=== PATIENT | female | born 2000 | race Caucasian/White ===

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

== ENCOUNTER 2020-06-17 19:16 | Emergency (ER) | payer MEDICAID, SELFPAY ==
[2020-06-17 19:17] VITALS: BP 123/75; PULSE 86; RESP 15; TEMP 36.2; O2SAT 97; BMI 21.9
[2020-06-17 19:19] VITALS: BP 123/75; PULSE 89; RESP 15; TEMP 36.2; O2SAT 97
[2020-06-17 19:46] LABS: Bacteria 0 SEEN /hpf (None Seen); Mucous, Urine 0 SEEN /hpf (<or=2+); Red Blood Cells-Urine 0 SEEN /hpf (0-5)
[2020-06-17 19:56] LABS: Color, Urine Yellow (Yellow); Glucose, Dipstick Normal (Normal); Ketone-Dipstick Negative (Negative); Leukocyte Esterase-Dipstick Negative /ul (Negative); Nitrite-Dipstick Negative (Negative); Occult Blood-Urine Negative /ul (Negative); Protein-Dipstick Negative (Negative); Specific Gravity, Urine 1.015 (1.002-1.030); Urine Bilirubin Dipstick Negative (Negative); Urine Clarity Clear (Clear); Urine Urobilinogen 1 mg/dl (Normal); Urine pH 6.5 (5.0 - 8.0)
[2020-06-17 20:02] LABS: Internal QC Validated? YES +Cl - CLEAR BKGD; Pregnancy, Urine Negative Negative
[2020-06-17 20:25] LABS: Squamous Epithelial Cells - UA 0-5 SEEN /hpf (5-10); White Blood Cells 0 SEEN /hpf (0-5)
[2020-06-17 21:00] VITALS: BP 118/77; PULSE 79; RESP 14; TEMP 36.2; O2SAT 99
--- NOTE | 2020-06-17 21:12 | CT_ITS ---
STUDY: CT ABDOMEN AND PELVIS WITH CONTRAST REASON FOR EXAM: Female, 19 years old. RLQ PAIN X 3 DAYS WITH NAUSEA RADIATION DOSAGE (If Supplied By Facility): CTDIvol = ( 10.69 ) mGy, DLP = ( 375.43 ) mGycm TECHNIQUE: Transaxial images were obtained from the dome of the diaphragm to the symphysis pubis without oral contrast. Oral and amp; IV breeza neutral and amp; 100mL Isovue-370 was administered. Sagittal and coronal images were reconstructed. Individualized dose optimization techniques were used for this CT. COMPARISON: None. FINDINGS: Lung bases are clear. Heart size is normal. The liver is unremarkable. The gallbladder is unremarkable. The spleen and pancreas are unremarkable. The adrenal glands are normal. The kidneys are unremarkable. No stones or hydronephrosis. The aorta is normal in caliber. There is no free fluid, free air or organized collection. No bowel obstruction or inflammatory change. Normal appendix. Urinary bladder is unremarkable. Normal abdominal wall. 2.1 x 0.7 x 3.8 cm lucent lesion in the left iliac wing with endosteal scalloping. No additional bone lesions. CT/Abdomen/Pelvis WITH Contrast IMPRESSION: 1. No acute findings. 2. 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 Electronically Signed: Kaye Mir MD at 23:45 EDT Tel , Service support ,
--- NOTE | 2020-06-17 21:15 | ED.VIS.GEN ---
History of Present Illness Chief Complaint: Abd Pain Informant: Patient Onset: Days - 3 days Context: Gradual Onset Timing: Waxes and wanes Current Severity: Moderate Maximum Severity: Moderate Narrative: Patient presents with right lower quadrant pain for the past 3 days. She does have nausea but has not noted vomiting or diarrhea. She denies urinary symptoms. Last menstrual cycle was 2 and half weeks ago. She denies history of ovarian cyst or current vaginal discharge. No prior abdominal surgeries. Past Medical History - Allergies and Home Meds Allergies/Adverse Reactions: Allergies lidocaine Allergy (Verified 06/17/20 19:19) Rash Primary Care Physician: Marco A Valdivia DO [Primary Care Provider] - Past Medical History: None Smoking Status: Current every day smoker Review of Systems General: Denies: Chills, Fever Eyes: Denies: Visual changes - bilaterally ENT: Denies: Bilateral ear pain Cardiovascular: Denies: Chest pain Respiratory: Denies: Dyspnea, Cough Gastrointestinal: Reports: Abdominal pain. Denies: Nausea, Vomiting Genitourinary: Denies: Dysuria Musculoskeletal: Denies: Swelling, Extremity Pain Skin: Denies: Rash Neurological: Denies: Headache Hematologic: Denies: Easy bruising, Easy bleeding Allergy: Denies: Uticaria Physical Exam Vital Signs/Narrative: Vital Signs Temp Pulse Resp BP Pulse Ox 06/17/20 21:00 97.1 F L 79 14 118/77 99 06/17/20 19:19 97.2 F L 89 15 123/75 H 97 06/17/20 19:17 97.2 F L 86 15 123/75 H 97 Inital Vital Signs reviewed: Yes General: Well nourished, Well developed Head: Normocephalic ENT: Moist mucous membranes Neck: Supple Cardiovascular: Regular rate, Regular rhythm Respiratory: No distress, CTA bilaterally Abdomen: Soft, Tender - Right lower quadrant tenderness to palpation., Hypoactive bowel sounds. Negative for: Guarding, Rebound tenderness Extremities: Nontender Skin: Normal color Neurological: Alert, Oriented x3 Psychological: Normal affect Diagnostic/Tx/Re-eval Impressions Abdomen/Pelvis CT 06/17/20 21:12 IMPRESSION: 1. No acute findings. 2. 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 Electronically Signed: Kaye Mir MD at 23:45 EDT Tel , Service support , 06/17/20 21:12 Abdomen/Pelvis WITH Contrast [CT] Stat Laboratory Results 06/17/20 06/17/20 06/17/20 19:33 21:45 21:45 WBC 7.9 RBC 5.04 Hgb 14.0 Hct 42.0 MCV 83.3 MCH 27.8 MCHC 33.3 RDW Std Deviation 38.9 RDW Coeff of Dinesh 12.9 Plt Count 277 MPV 10.4 Immature Gran % (Auto) 0.100 Neut % (Auto) 49.0 Lymph % (Auto) 37.3 [place] % (Auto) 6.2 Eos % (Auto) 6.6 H Baso % (Auto) 0.8 Absolute Neuts (auto) 3.8 Absolute Lymphs (auto) 2.93 Nucleated RBC % 0 Sodium 140 Potassium 4.3 Chloride 108 H Carbon Dioxide 25.0 Anion Gap 7 BUN 9 Creatinine 0.69 Estim Creat Clear Calc 103.72 Est GFR (MDRD) Af Amer 140 Est GFR (MDRD) Non-Af 115 BUN/Creatinine Ratio 13.0 Glucose 82 Calcium 9.3 Total Bilirubin 0.40 Direct Bilirubin 0.12 AST 19 ALT 22 Alkaline Phosphatase 71 Total Protein 8.0 Albumin 3.8 Globulin 4.2 Urine Color Yellow Urine Clarity Clear Urine pH 6.5 Ur Specific [place] 1.015 Urine Protein Negative Urine Glucose (UA) Normal Urine Ketones Negative Urine Occult Blood Negative Urine Nitrite Negative Urine Bilirubin Negative Urine Urobilinogen 1 H Ur Leukocyte Esterase Negative Urine RBC 0 SEEN Urine WBC 0 SEEN Ur Squamous Epith Cells 0-5 SEEN Urine Bacteria 0 SEEN Urine Mucus 0 SEEN Urine Test Negative - Medical Decision Making Patient is given a small dose of morphine along with Zofran for pain. Test results are discussed with patient and significant other at bedside. No acute abnormalities noted on her imaging or labs to explain her current symptoms. She will be given couple days of pain medication and advised to follow bland diet. She is given return instructions. ED Disposition - Plan for ED Patient: Disposition: Home or Assisted Living Diagnosis: Abdominal pain Instructions: ED Abdominal Pain Unkn Cause Fem Prescriptions: Hydrocodone Bitart/Apap 5-325 [Lambert 5MG-325MG] 1 tablet PO Q6H PRN PRN 3 Days #10 tablet PRN Reason: Pain Referrals: Marco A Valdivia, [Primary Care Provider] - 1 Week if not improving
[2020-06-17] MEDS: Ondansetron 4 MG/2 ML Vial IV (21:41)
[2020-06-17] MEDS: 0.9% Normal Saline 1,000 ML 100 ML IV (21:41)
[2020-06-17] MEDS: Morphine 2 MG/ML Syringe IV (21:41)
[2020-06-17 21:43] VITALS: BP 120/73; PULSE 74; RESP 15; O2SAT 100
[2020-06-17 22:03] LABS: Absolute Lymphocyte Count 2.93 X10^3/uL (0.83-4.51); Absolute Neutrophil Count 3.8 X10^3/uL (2.0-7.7); Basophil# 0.06 X10^3/uL; Basophil% 0.8 % (0-1); Eosinophil# 0.52 X10^3/uL; Eosinophils% 6.6 % (0-5); Lymphocyte # 2.93 X10^3/ul (4.0); Lymphocyte % 37.3 % (19-41); Mean Corp Hgb Conc 33.3 g/dL (32-36); Mean Corpuscular Hgb 27.8 pg (27.0-32.0); Mean Corpuscular Volume 83.3 fL (81-99); Mean Platelet Vol. 10.4 fl (6.2-12.0); Monocyte# 0.49 X10^3/uL; Monocyte% 6.2 % (0-10); NRBC Flagged by Analyzer 0 % (0-5); Neutrophil # 3.84 X10^3/uL (2.7-7.7); Platelet Count 277 K/mm3 (150-450); RBC Distribution Width CV 12.9 % (11.6-14.6); RBC Distribution Width SD 38.9 fl (35.1-43.9); Red Blood Count 5.04 M/mm3 (4.2-5.4); White Blood Count 7.9 K/mm3 (4.4-11.0)
[2020-06-17 22:21] LABS: AST(SGOT) 19 U/L (15-37); Alanine Aminotransfer ALT/SGPT 22 U/L (13-56); Albumin, Serum 3.8 g/dL (3.2-5.0); Alkaline Phosphatase 71 U/L (45-117); Anion Gap 7 (5-15); BUN 9 mg/dL (7-18); Bilirubin, Direct 0.12 mg/dL (0.00-0.30); Calcium,Total 9.3 mg/dL (8.5-10.1); Chloride 108 mmol/L (98-107); Creatinine, Serum 0.69 mg/dL (0.55-1.02); EST Glomerular Filtration Rate 115 mL/min (>60); Est Glom Filt Rate - Afr Amer 140 mL/min (>60); Estimated Creatinine Clearance 103.72 ml/min; Globulin 4.2 g/dL (2.2-4.2); Glucose 82 mg/dL (74-106); Potassium 4.3 mmol/L (3.5-5.1); Sodium Level 140 mmol/L (136-145)
[2020-06-18 00:36] VITALS: BP 132/80; PULSE 15; RESP 71; O2SAT 98
== END 2020-06-18 00:37 | disposition home or self-care (01) ==
PROVIDERS: Emergency Provider Emergency Medicine; PCP Family Medicine
DX: R10.31 Right lower quadrant pain (principal); R11.0 Nausea; F17.200 Nicotine dependence, unspecified, uncomplicated
CPT/HCPCS: 74177; 80048; 80076; 81001; 81025; 85025; 96361; 96374; 96375; 99283; J7030; Q9967; A4216; J2405

== ENCOUNTER 2022-04-12 19:41 | Emergency (ER) | payer OTHER, MEDICAID, SELFPAY ==
[2022-04-12 19:42] VITALS: BP 156/92; PULSE 104; RESP 16; TEMP 36.6; O2SAT 99; BMI 22.8
--- NOTE | 2022-04-12 20:37 | ED.RN ---
Pain medication request given to Dr Prado. Await order.
--- NOTE | 2022-04-12 20:45 | RAD_ITS ---
STUDY: X-RAY - LEFT TIBIA AND FIBULA REASON FOR EXAM: Female, 21 years old. Injury/Pain TECHNIQUE: 2 view(s) of the tibia and fibula were obtained. COMPARISON: None. FINDINGS: Normal visualized tibia. Normal visualized fibula. Soft tissue swelling and subcutaneous emphysema anteriorly consistent with a laceration. RAD/Tibia & Fibula 2 Views IMPRESSION: No acute fracture, dislocation, radiopaque foreign body. Electronically Signed: Keon Odell MD at 21:11 EDT ,
[2022-04-12] MEDS: DiphenhydrAMINE 50 MG/ML Syringe 150 MG IM (20:47)
--- NOTE | 2022-04-12 21:32 | ED.RN ---
patient calls out again requesting pain medication. Dr Prado notified. no new orders given.
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
[2022-04-12] MEDS: HYDROcodone Bitartrate/Apap 5/325 Tablet PO (21:54)
[2022-04-12 23:16] VITALS: RESP 17
[2022-04-12] MEDS: Cephalexin 500 MG Capsule PO (23:48)
== END 2022-04-12 23:55 | disposition home or self-care (01) ==
PROVIDERS: Emergency Provider Emergency Medicine; PCP Family Medicine; Visit Provider Emergency Medicine
DX: S81.811A Laceration without foreign body, right lower leg, initial encounter (principal); V86.99XA Unspecified occupant of other special all-terrain or other off-road motor vehicle injured in nontraffic accident, initial encounter; F17.210 Nicotine dependence, cigarettes, uncomplicated
CPT/HCPCS: 12002; 73590; 96372; 99285

== ENCOUNTER → 2023-09-21 | Outpatient (CLI) | payer OTHER, SELFPAY ==
--- NOTE | 2023-09-21 12:28 | US_ITS ---
STUDY: FIRST TRIMESTER OBSTETRICAL ULTRASOUND REASON FOR EXAM: Female, 22 years old dating LMP: August 06, 2023. TECHNIQUE: Transvaginal TECHNICAL QUALITY: Adequate. PRIOR ULTRASOUND: None. FINDINGS: There is visualization of a single gestational sac in a normal intrauterine position. The mean sac diameter (MSD) measures 2.2 sono, indicating an estimated gestational age (EGA) of 7 weeks, 1 days. The gestational sac shape is within normal limits. There is a visualized yolk sac. The yolk sac measures 2.2 mm. The placenta is non-visualized. There is visualization of a live embryo. The crown-rump length (CRL) measures 8 mm, indicating an estimated gestational age (EGA) of 6 weeks, 6 days. There is demonstrated cardiac activity with a heart rate of 114 bpm. The estimated gestation age (EGA) by LMP is 6 weeks, 4 days. The estimated date of delivery (JUAN JOSE) by LMP is May 12, 2024. The estimated gestation age (EGA) by US is 7 weeks, 0 days. The estimated date of delivery (JUAN JOSE) by US is May 09, 2024. The uterus measures 10.1 cm x 6 cm x 4.9 cm. There is no demonstrated uterine fibroid. The cervix is closed. The right ovary measures 3.7 cm x 2.6 cm x 2.9 cm. There is no right ovarian cyst. There is no visualized right adnexal mass or complex lesion. The left ovary measures 2.5 cm x 1.6 cm x 1.5 cm. There is no left ovarian cyst. There is no visualized left adnexal mass or complex lesion. There is no fluid in the cul de sac. US/Transvaginal w/Preg US IMPRESSION: Single intrauterine gestation with a mean gestational age of 7 weeks. Electronically Signed: Clarence Reyes MD at 16:07 EST ,
--- OUTSIDE RECORDS SUMMARY | 2023-09-21 12:53 | XMS RPT_ITS | CCD ---
Author Name Unknown Address [address] [place] [address] Organization [facility] Care Team Providers Care Trailer Park Manager Name Role Phone Shea Marco A Carrillo Primary Care Provider [phone] Self, Referral Referring Unavailable Mulugeta Garces Attending Unavailable Shea GUERRA Marco A Carrillo Primary Care Provider Shea GUERRA Marco A Carrillo Primary Care Provider Shea GUERRA Marco A Carrillo Primary Care Provider SHEA, MARCO A Primary Care Unavailable MONIKA CHONG Attending Unavailable MONIKA CHONG Referring Unavailable VALENTINOA, MARCO A Primary Care Unavailable SHEA, MARCO A Attending Unavailable SHEA, MARCO A Referring Unavailable VALENTINOA, MARCO A Primary Care Unavailable SHEA, MARCO A Attending Unavailable VALENTINOA, MARCO A Primary Care Unavailable ELIZABETH ALLEN Attending Unavailable VALENTINOA, MARCO A Primary Care Unavailable KEITH SOL Attending Unavailable SHEA, MARCO A Primary Care Unavailable SHEA, MARCO A Attending Unavailable VALENTINOA, MARCO A Primary Care Unavailable SHEA, MARCO A Attending Unavailable VALENTINOA, MARCO A Primary Care Unavailable ELIZABETH ALLEN Attending Unavailable VALENTINOA, MARCO A Primary Care Unavailable Allergies Allergy Classification Reported Allergen(s) Allergy Type Date of Onset Reaction(s) Facility Lidocaine (4 sources) Lidocaine Drug Allergy 01-21-2016 [facility] (20 sources) Lidocaine Drug Allergy 01-21-2016 [facility], [place] Medications Current Medications Medication Drug Class(es) Dates Sig (Normalized) Sig (Original) acetaminophen 500 mg oral tablet (20 sources) Start: 12-24-2021 acetaminophen (TYLENOL) tablet 1,000 mg Completed/Discontinued Medications Medication Drug Class(es) Dates Sig (Normalized) Sig (Original) [id number] 200 actuat albuterol 0.09 mg/actuat metered dose inhaler (2 sources) beta2-Adrenergic Agonist Start: 05-16-2020 End: 12-01-2022 take 2 puff(s) by inhalation every four hours as needed albuterol 108 (90 Base) MCG/ACT inhaler Inhale 2 puffs every 4 hours as needed. 0 05/16/2020 12/01/2022 Discontinued (Therapy completed) benzonatate 100 mg oral capsule (6 sources) Non-narcotic Antitussive Start: 10-26-2022 End: 12-01-2022 take 1 capsule by mouth every eight hours as needed for cough benzonatate (Tessalon) 100 MG capsule Indications: Sinobronchitis Take 1 capsule (100 mg) by mouth every 8 hours as needed for cough. 21 capsule 0 10/26/2022 12/01/2022 Discontinued (Therapy completed) Problems Active Problems Problem Classification Problem Date Documented Da te Episodic/Chronic Alcohol-related disorders (1 source) Alcohol intoxication; Translations: [Alcohol use, unspecified with intoxication, uncomplicated] Episodic Cardiac dysrhythmias (11 sources) Tachycardia; Translations: [Tachycardia, unspecified] Onset: 07-30-2023 Episodic E Codes: Fall (1 source) Fall; Translations: [Unspecified fall, initial encounter] Episodic Genitourinary symptoms and ill-defined conditions (3 sources) Polyuria; Translations: [Polyuria] Onset: 07-19-2023 07-19-2023 Episodic Other bone disease and musculoskeletal deformities (20 sources) Irene Schlatter disease; 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] Onset: 10-26-2019 04-09-2017 Chronic Other female genital disorders (1 source) Pain in female genitalia on intercourse; Translations: [Unspecified dyspareunia] 02-18-2023 Chronic Other female genital disorders (2 sources) Unspecified dyspareunia; Translations: [Unspecified dyspareunia] Onset: 02-18-2023 Chronic Other gastrointestinal disorders (1 source) Diarrhea; Translations: [Diarrhea, unspecified] Episodic Other injuries and conditions due to external causes (1 source) Injury of nose; Translations: [Unspecified injury of nose, initial encounter] Episodic Other injuries and conditions due to external causes (1 source) Injury of head; Translations: [Unspecified injury of head, initial encounter] Episodic Other nervous system disorders (13 sources) Postoperative pain ; Translations: [Other acute postprocedural pain] Onset: 02-29-2020 Resolved: 10-10-2020 02-29-2020 Episodic Other non-traumatic joint disorders (2 sources) Pain in right hip joint; Translations: [Right hip pain] Other upper respiratory infections (3 sources) Chronic sinusitis; Translations: [Chronic sinusitis, unspecified] Onset: 10-26-2022 04-21-2023 Chronic Other upper respiratory infections (1 source) Acute pharyngitis; Translations: [Acute pharyngitis, unspecified] Episodic Screening and history of mental health and substance abuse codes (1 source) H/O: depression; Translations: [Personal history of other mental and behavioral disorders] Episodic Unclassified (1 source) Drug therapy finding Past or Other Problems Problem Classification Problem Date Documented Date Episodic/Chronic Abdominal pain (4 sources) Right upper quadrant pain; Translations: [Right upper quadrant pain] Onset: 3 Episodic Chronic obstructive pulmonary disease and bronchiectasis (2 sources) Bronchitis, not specified as acute or chronic; Translations: [Bronchitis, not specified as acute or chronic] Onset: 3 Episodic Contraceptive and procreative management (20 sources) Oral contraception; Translations: [Encounter for surveillance of contraceptive pills] Onset: 0 05-24-2018 Episodic E Codes: Natural/environment (2 sources) Bitten by dog, initial encounter; Translations: [Bitten by dog, initial encounter] Onset: 3 Episodic Immunizations and screening for infectious disease (3 sources) Patient encounter status; Translations: [Encounter for screening for infections with a predominantly sexual mode of transmission] Onset: 3 02-18-2023 Episodic Intracranial injury (18 sources) Personal history of traumatic brain injury; Translations: [Concussion with no loss of consciousness] Onset: 7 Resolved: 0 04-09-2017 Episodic Mood disorders (20 sources) Depressive disorder; Translations: [Major depressive disorder] Onset: 7 Resolved: 1 03-29-2017 Chronic Other gastrointestinal disorders (1 source) Constipation Episodic Other gastrointestinal disorders (2 sources) Diarrhea, unspecified; Translations: [Diarrhea, unspecified] Onset: 3 Episodic Other injuries and conditions due to external causes (1 source) Closed injury of head; Translations: [Closed head injury, initial encounter] Episodic Other screening for suspected conditions (not mental disorders or infectious disease) (3 sources) Cancer cervix screening status; Translations: [Encounter for screening for malignant neoplasm of cervix] Onset: 3 02-18-2023 Episodic Retinal detachments; defects; vascular occlusion; and retinopathy (12 sources) Detachment of retina of right eye; Translations: [Serous retinal detachment, right eye] Onset: 3 04-21-2023 Episodic Spondylosis; intervertebral disc disorders; other back problems (1 source) Torticollis; Translations: [Torticollis] Episodic Sprains and strains (17 sources) Sprain, metatarsophalangeal joint; Translations: [Sprain of metacarpophalangeal joint of right little finger, initial encounter] Onset: 8 Resolved: 0 05-04-2018 Episodic Results Test Name Value Interpretation Reference Range Facil ity Vital Signs Date Time Vital Sign Value Performing Clinician Faci lity 07-19-2023 14:05-0500 Body height 157.5 cm Marco A Valdivia DO Work Phone: [facility] 07-19-2023 14:05-0500 Body mass index (BMI) [Ratio] 24.51 kg/m2 Marco A Valdivia Owl[facility]ing ??? Work Phone: [facility] 07-19-2023 14:05-0500 Body temperature 97.9 [degF] Marco A Valdivia DO Work Phone: [facility] 07-19-2023 14:05-0500 Body weight 60.78 kg Marco A Valdivia DO Work Phone: [facility] 07-19-2023 14:05-0500 Diastolic blood pressure 60 mm[Hg] Marco A Valdivia DO Work Phone: [facility] 07-19-2023 14:05-0500 Heart rate 75 /min Marco A Valdivia Owl[facility] ??? Work Phone: [facility] 07-19-2023 14:05-0500 SaO2% (BldA) [Mass fraction] 99 % Marco A Valdivia DO Work Phone: [facility] [employer] 07-19-2023 14:05-0500 Systolic blood pressure 110 mm[Hg] Marco A Valdivia DO Work Phone: [facility] 04-21-2023 15:27-0400 Body height 157.5 cm Marco A Valdivia DO Work Phone: [employer] [place] [facility] 04-21-2023 15:27-0400 Body mass index (BMI) [Ratio] 25.06 kg/m2 Marco A Valdivia DO Work Phone: [employer] [place] [facility] 04-21-2023 15:27-0400 Body temperature 98.01 [degF] Marco A Valdivia DO Work Phone: [employer] [place] [facility] 04-21-2023 15:27-0400 Body weight 62.14 kg Marco A Valdivia DO Work Phone: [facility] [facility] 04-21-2023 15:27-0400 Diastolic blood pressure 77 mm[Hg] Marco A Valdivia DO Work Phone: [facility] [place] [facility] 04-21-2023 15:27-0400 Heart rate 82 /min Marco A Valdivia DO Work Phone: [employer] [place] [facility] 04-21-2023 15:27-0400 SaO2% (BldA) [Mass fraction] 99 % Marco A Valdivia DO Work Phone: [employer] [place] [facility] 04-21-2023 15:27-0400 Systolic blood pressure 117 mm[Hg] Marco A Valdivia DO Work Phone: [facility] [place] [facility] 02-18-2023 10:05-0400 Body height 157.5 cm Elizabeth Allen MD Work Phone: [employer] [place] [facility] 02-18-2023 10:05-0400 Body mass index (BMI) [Ratio] 24.87 kg/m2 Elizabeth Allen MD Work Phone: [facility] 02-18-2023 10:05-0400 Body weight 61.69 kg Elizabeth Allen MD Work Phone: [facility] 02-18-2023 10:05-0400 Diastolic blood pressure 91 mm[Hg] Elizabeth Allen MD Work Phone: [facility] 02-18-2023 10:05-0400 Heart rate 76 /min Elizabeth Allen MD Work Phone: [facility] 02-18-2023 10:05-0400 Systolic blood pressure 133 mm[Hg] Elizabeth Allen MD Work Phone: [facility] 12-01-2022 10:13-0400 Body height 157.5 cm Marco A Valdivia DO Work Phone: [facility] 12-01-2022 10:13-0400 Body mass index (BMI) [Ratio] 24.51 kg/m2 Marco A Avelara DO Work Phone: [facility] 12-01-2022 10:13-0400 Body temperature 97.81 [degF] Marco A Valdivia DO Work Phone: [facility] [facility] 12-01-2022 10:13-0400 Body weight 60.78 kg Marco A Valdivia DO Work Phone: [facility] 12-01-2022 10:13-0400 Diastolic blood pressure 79 mm[Hg] Marco A Valdivia DO Work Phone: [facility] 12-01-2022 10:13-0400 Heart rate 113 /min Marco A Valdivia DO Work Phone: [facility] [facility] 12-01-2022 10:13-0400 SaO2% (BldA) [Mass fraction] 97 % Marco A Avelara DO Work Phone: [facility] [facility] 12-01-2022 10:13-0400 Systolic blood pressure 114 mm[Hg] Marco A Avelara DO Work Phone: [facility] [facility] 12-24-2021 12:00-0400 Diastolic blood pressure 75 mm[Hg] Steven Martinez DO Work Phone: [facility] 12-24-2021 12:00-0400 Heart rate 61 /min Steven Martinez DO Work Phone: [facility] 12-24-2021 12:00-0400 Respiratory rate 16 /min Steven Martinez DO Work Phone: [facility] 12-24-2021 12:00-0400 SaO2% (BldA) [Mass fraction] 100 % Steven Martinez DO Work Phone: [facility] 12-24-2021 12:00-0400 Systolic blood pressure 110 mm[Hg] Steven Martinez DO Work Phone: [facility] 12-24-2021 11:30-0400 Body temperature 97.7 [degF] Steven Martinez DO Work Phone: [facility] 12-24-2021 07:05-0400 Body height 157.5 cm Steven Martinez DO Work Phone: [facility] 12-24-2021 07:05-0400 Body mass index (BMI) [Ratio] 24.69 kg/m2 Steven Martinez DO Work Phone: [facility] 12-24-2021 07:05-0400 Body weight 61.24 kg Steven Martinez DO Work Phone: [facility] 12-17-2021 11:56-0400 Body temperature 97.5 [degF] Steven Martinez DO Work Phone: [facility] 12-17-2021 11:56-0400 Diastolic blood pressure 75 mm[Hg] Steven Martinez DO Work Phone: [facility] 12-17-2021 11:56-0400 Heart rate 85 /min Steven Martinez DO Work Phone: [facility] 12-17-2021 11:56-0400 Respiratory rate 18 /min Steven Martinez DO Work Phone: [facility] 12-17-2021 11:56-0400 SaO2% (BldA) [Mass fraction] 97 % Steven Martinez DO Work Phone: [facility] 12-17-2021 11:56-0400 Systolic blood pressure 114 mm[Hg] Steven Walkeralil DO Work Phone: [facility] 12-17-2021 11:56-0400 Body height 157.5 cm Steven Walkeralil DO Work Phone: [facility] 12-17-2021 11:56-0400 Body mass index (BMI) [Ratio] 24.76 kg/m2 Steven Walkeralil DO Work Phone: [facility] 12-17-2021 11:56-0400 Body weight 61.42 kg Steven Walkeralil DO Work Phone: [facility] 12-13-2021 10:57-0400 Body temperature 98.49 [degF] Cali Sy MD Work Phone: [facility] 12-13-2021 10:57-0400 Diastolic blood pressure 53 mm[Hg] Cali Sy MD Work Phone: [facility] 12-13-2021 10:57-0400 Heart rate 82 /min Cali Sy MD Work Phone: [facility] 12-13-2021 10:57-0400 Respiratory rate 18 /min aCli Sy MD Work Phone: [facility] 12-13-2021 10:57-0400 SaO2% (BldA) [Mass fraction] 95 % Cali Sy MD Work Phone: [facility] 12-13-2021 10:57-0400 Systolic blood pressure 104 mm[Hg] Cali Sy MD Work Phone: [facility] 12-13-2021 06:05-0400 Body height 157.5 cm Cali Sy MD Work Phone: [facility] 12-13-2021 06:05-0400 Body mass index (BMI) [Ratio] 22.86 kg/m2 Cali Sy MD Work Phone: [facility] 12-13-2021 06:05-0400 Body weight 56.7 kg Cali Sy MD Work Phone: [facility] 11-14-2021 20:11-0400 Body height 157.5 cm Josh Hicks MD Work Phone: [facility] 11-14-2021 20:11-0400 Body mass index (BMI) [Ratio] 22.86 kg/m2 Josh Hicks MD Work Phone: [facility] 11-14-2021 20:11-0400 Body temperature 99.3 [degF] Josh Hicks MD Work Phone: [facility] 11-14-2021 20:11-0400 Body weight 56.7 kg Josh Hicks MD Work Phone: [facility] 11-14-2021 20:11-0400 Diastolic blood pressure 96 mm[Hg] Josh Hicks MD Work Phone: [facility] 11-14-2021 20:11-0400 Heart rate 96 /min Josh Hicks MD Work Phone: [facility] 11-14-2021 20:11-0400 Respiratory rate 16 /min Josh Hicks MD Work Phone: [facility] 11-14-2021 20:11-0400 SaO2% (BldA) [Mass fraction] 100 % Josh Hicks MD Work Phone: [facility] 11-14-2021 20:11-0400 Systolic blood pressure 140 mm[Hg] Josh Hicks MD Work Phone: [facility] 04-13-2021 18:39-0400 Body height 157.5 cm Josh Hicks MD Work Phone: [facility] Work Phone: 04-13-2021 18:39-0400 Body mass index (BMI) [Ratio] 23.23 kg/m2 Josh Hicks MD [facility] Work Phone: 04-13-2021 18:39-0400 Body temperature 98.6 [degF] Josh Hicks MD Work Phone: [facility] Work Phone: 04-13-2021 18:39-0400 Body weight 57.61 kg Josh Hicks MD Work Phone: [facility] Work Phone: 04-13-2021 18:39-0400 Diastolic blood pressure 77 mm[Hg] Josh Hicks MD Work Phone: [facility] Work Phone: 04-13-2021 18:39-0400 Heart rate 92 /min Josh Hicks MD Work Phone: [facility] Work Phone: 04-13-2021 18:39-0400 Respiratory rate 18 /min Josh Hicks MD Work Phone: [facility] Work Phone: 04-13-2021 18:39-0400 SaO2% (BldA) [Mass fraction] 96 % Josh Hicks MD Work Phone: [facility] Work Phone: 04-13-2021 18:39-0400 Systolic blood pressure 133 mm[Hg] Josh Hicks MD Work Phone: [employer] Work Phone: 02-29-2020 01:48-0400 BMI (Body Mass Index) 21.58 kg/m2 [facility] [place] 02-29-2020 01:48-0400 Body Temperature 97.81 [degF] [facility] [place] 02-29-2020 01:48-0400 Body weight 53.52 kg [facility] , [place] 02-29-2020 01:48-0400 BP Diastolic 80 mm[Hg] [facility] [place] 02-29-2020 01:48-0400 BP Systolic 123 mm[Hg] [facility] [place] 02-29-2020 01:48-0400 Height 157.5 cm [facility] , [place] 02-29-2020 01:48-0400 Pulse (Heart Rate) 82 /min Marco A Valdivia [facility] [place], [place] 02-29-2020 01:48-0400 Pulse Oximetry 99 % Marco A [facility] [place] , [place] 02-29-2020 01:48-0400 Respiratory Rate 16 /min Marco A [facility] [place] 02-28-2020 11:00-0400 BP Diastolic 90 mm[Hg] Steven [facility] [place] [facility] [place] 02-28-2020 11:00-0400 BP Systolic 139 mm[Hg] Steven Martinez [facility] , [place] 02-28-2020 11:00-0400 Pulse (Heart Rate) 66 /min [facility] [place] [place] 02-28-2020 11:00-0400 Pulse Oximetry 100 % [facility] [place] 02-28-2020 11:00-0400 Respiratory Rate 14 /min [facility] [place] 02-28-2020 08:59-0400 Body Temperature 97.2 [degF] [facility] [place] 02-28-2020 07:40-0400 BMI (Body Mass Index) 21.58 kg/m2 Steven Saavedra [facility]- [place], [place] 02-28-2020 07:40-0400 Body weight 53.52 kg [facility] [place] 02-28-2020 07:40-0400 Height 157.5 cm [facility] [place] 02-26-2020 13:38-0400 BMI (Body Mass Index) 21.58 kg/m2 Steven Saavedra [facility] [place], [place] 02-26-2020 13:38-0400 Body Temperature 99.5 [degF] [facility] [place] 02-26-2020 13:38-0400 Body weight 53.52 kg [facility] [place] , [place] 02-26-2020 13:38-0400 BP Diastolic 81 mm[Hg] Steven Martinez [facility] [place] 02-26-2020 13:38-0400 BP Systolic 120 mm[Hg] Steven Shrest[facility] [place] 02-26-2020 13:38-0400 Height 157.5 cm Steven Shrest[facility] [place] 02-26-2020 13:38-0400 Pulse (Heart Rate) 104 /min Steven [facility] [place] 02-26-2020 13:38-0400 Pulse Oximetry 97 % Steven Shrest[facility] [place] 02-10-2020 23:13-0400 Body Temperature 99.81 [degF] [facility] [place] 02-10-2020 23:13-0400 BP Diastolic 86 mm[Hg] Prem [facility] [place] , [place] 02-10-2020 23:13-0400 BP Systolic 133 mm[Hg] Prem Teran [facility] [place] , [place] 02-10-2020 23:13-0400 Pulse (Heart Rate) 79 /min [facility] [place] [place] 02-10-2020 23:13-0400 Pulse Oximetry 97 % Prem [facility] [place] , [place] 02-10-2020 23:13-0400 BMI (Body Mass Index) 21.95 kg/m2 Prem Saavedra [facility] [place], [place] 02-10-2020 23:13-0400 Body weight 54.43 kg Prem Teran [facility] [place] , [place] 02-10-2020 23:13-0400 Height 157.5 cm Prem Vegas[facility]den[facility] [place] , [place] 02-10-2020 23:13-0400 Respiratory Rate 16 /min Prem [facility] [place] 11-01-2019 13:15-0500 BP Diastolic 68 mm[Hg] Steven Martinez [facility]- [place] , 11-01-2019 13:15-0500 BP Systolic 112 mm[Hg] [facility] [place] , 11-01-2019 13:15-0500 Pulse (Heart Rate) 72 /min Steven Shrest[facility] [place] 11-01-2019 13:15-0500 Pulse Oximetry 100 % [facility] [place] [facility] [place] 11-01-2019 13:15-0500 Respiratory Rate 16 /min tSeven Saavedra [facility], [place] 11-01-2019 12:31-0500 Body Temperature 97.5 [degF] Steven Saavedra [facility], [place] 11-01-2019 11:01-0500 BMI (Body Mass Index) 22.86 kg/m2 Steven Saavedra [facility], [place] 11-01-2019 11:01-0500 Body weight 56.7 kg [facility] [place] 11-01-2019 11:01-0500 Height 157.5 cm [facility] [place] [facility] [place] 08-25-2019 17:40-0500 Diastolic blood pressure 71 mm[Hg] Armando Hernandez MD [facility] Work Phone: 08-25-2019 17:40-0500 Heart rate 90 /min Armando Hernandez MD [facility]: [facility] Work Phone: 08-25-2019 17:40-0500 Respiratory rate 14 /min Armando Hernandez MD Work Phone: [facility] Work Phone: 08-25-2019 17:40-0500 Systolic blood pressure 105 mm[Hg] Armando Hernandez MD Work Phone: [facility] Work Phone: 08-25-2019 15:44-0500 Body height 157.5 cm Armando Hernandez MD Work Phone: [facility] Work Phone: 08-25-2019 15:44-0500 Body mass index (BMI) [Ratio] 21.95 kg/m2 Armando Hernandez MD Work Phone: [facility] Work Phone: 08-25-2019 15:44-0500 Body temperature 98.29 [degF] Armando Hernandez MD Work Phone: [facility] Work Phone: 08-25-2019 15:44-0500 Body weight 54.43 kg Armando Hernandez MD [facility] Work Phone: 08-25-2019 15:44-0500 SaO2% (BldA) [Mass fraction] 100 % Armando Hernandez MD Work Phone: [employer] Work Phone: 07-06-2019 10:59-0500 Body Temperature 98.1 [degF] [facility] [place] 07-06-2019 10:59-0500 BP Diastolic 96 mm[Hg] [place] [facility], [place] 07-06-2019 10:59-0500 BP Systolic 141 mm[Hg] [place] [facility] [place], [place] 07-06-2019 10:59-0500 Pulse (Heart Rate) 93 /min [facility] [facility] [place] 07-06-2019 10:59-0500 Pulse Oximetry 100 % [facility] [place] [facility], [place] 07-06-2019 10:59-0500 Respiratory Rate 14 /min [place] Encounters Encounter Date Encounter Type Care Provider Facility Start: 09-13-2023 Telephone encounter Marco A stanton OwlTing ??? Work Phone: [facility] Procedures Date Procedure Procedure Detail Performing Clinician Start: 08-20-2023 Follow-up visit Follow-up ELIZABETH HOBBS Start: 07-19-2023 Urnls dip stick/tabl et rgnt non-auto w/o micrscp Marco A Valdivia DO Work Phone: Start: 07-19-2023 Ecg routine ecg w/le ast 12 lds w/i&r Marco A Valdivia DO Work Phone: Start: 02-18-2023 Microscopic observat ion [Identifier] in Cervix by Cyto stain Elizabeth Allen MD Work Phone: Start: 12-01-2022 Complete blood count with white cell differential, automated Marco A Valdivia DO Work Phone: Start: 12-01-2022 Comprehensive metabo lic panel Marco A Carrillo Valentinolisa DO Work Phone: Start: 12-24-2021 Urine test visual color cmprsn meths Jorge Acosta MD Work Phone: Start: 12-13-2021 Radex hand minimum 3 views Tequila Rene [employer] Work Phone: Start: 12-13-2021 Assay of ethanol Tequila Rene [employer] Work Phone: Start: 12-13-2021 Basic metabolic pane l calcium total Tequila Rene [employer] Work Phone: Start: 12-13-2021 Drug screen class list a Tequila Rene [employer]IPMENT OPERATOR Work Phone: Start: 12-13-2021 Hepatic function panel Tequila Rene [employer] Work Phone: Start: 12-13-2021 POCT COVID-19, ANTIGEN Tequila Rene [employer]QUIPMENT OPERATOR Work Phone: Start: 12-13-2021 End: 12-13-2021 Urnls dip stick/tablet rgnt auto w/o microscopy Tequila Rene [employer]QUIPMENT OPERATOR Work Phone: Start: 12-13-2021 Radex hand minimum 3 views Tequila Rene [employer]QUIPMENT OPERATOR Work Phone: Start: 11-14-2021 Ct head/brain w/o co ntrast material Josh Hicks MD Work Phone: Start: 11-14-2021 Radex nasal bones co mplete minimum 3 views Josh Hicks MD Work Phone: Start: 04-13-2021 Iaad ia streptococcu s group a Josh Hicks MD Work Phone: Start: 02-03-2021 Echo tthrc r-t 2d w/wom-mode compl spec&colr d Marco A Carrillo Shea DO Work Phone: Start: 01-14-2021 Us abdominal real ti me w/image limited Marco A Valdivia DO Work Phone: Start: 01-01-2021 Ecg routine ecg w/le ast 12 lds i&r only Start: 02-28-2020 OPERATIVE REPORT 3m Sca nning Start: 02-28-2020 Urine test visual color cmprsn meths Reji Dash Work Phone: Start: 02-26-2020 COVID-19 Ayesha lopez Work Phone: Start: 02-11-2020 Ct head/brain w/o co ntrast material Prem Teran Work Phone: Start: 02-10-2020 Urine test visual color cmprsn meths Prem Teran Work Phone: Start: 11-01-2019 OPERATIVE REPORT 3m Sca nning Start: 11-01-2019 Urine test visual color cmprsn meths Wilmarramya Shah Work Phone: Start: 08-25-2019 Urnls dip stick/tabl et rgnt auto w/o microscopy Armando Hernandez MD Work Phone: Start: 08-25-2019 Comprehensive metabo lic panel Armando Hernandez MD Work Phone: Start: 07-05-2019 Mri any jt lower ext rem w/o contrast matrl Ji Hernandez Work Phone: Start: 06-14-2019 Radex hip unilateral with pelvis 2-3 views Ji Hernandez Work Phone: Plan of Treatment Date Care Activity Detail Author Start: 2060 RSV Immunization aged 60 or older (1 - 1-dose 60+ series) RSV Immunization aged 60 or older (1 - 1-dose 60+ series) [facility] Start: 2050 Zoster Vaccines (1 of 2) Zoster Vaccines (1 of 2) [facility] Start: 2050 Shingles Vaccine (1 of 2) Shingles Vaccine (1 of 2) [place] Start: 05-18-2031 DTaP/Tdap/Td vaccine (8 - Td or Tdap) DTaP/Tdap/Td vaccine (8 - Td or Tdap) [facility] Start: 05-18-2031 DTaP/Tdap/Td Vaccines (8 - Td or Tdap) DTaP/Tdap/Td Vaccines (8 - Td or Tdap) [facility] Start: 02-18-2026 Screening for malignant neoplasm of cervix Pap Smear [facility] Start: 10-12-2023 End: 10-12-2023 Patient encounter procedure 10/12/2023 1:00 PM EST Office Visit [facility] Cardiology [address] [place] [id number] Rei Beaulieu MD [address] [place], [place] [id number] [facility] Start: 09-16-2023 End: 09-16-2023 Patient encounter procedure 09/16/2023 10:45 AM EST Office Visit [facility] Obstetrics & Gynecology [address] [place] [address] [address] [place] [address] Joan Perez CNM [address] [place], [place] [id number] [facility]etric[facility]ne[facility] Start: 08-24-2023 End: 07-26-2025 Cardiac event monitor (30 days) Cardiac event monitor (30 days) [facility] Routine Palpitations Expected: 08/24/2023 (Approximate), Expires: 07/26/2025 [facility] Work Phone: Immunizations Immunization Date Immunization Notes Care Provider Fa [facility] 10-04-2022 rabies immune globulin Malik Valdivia DO Work Phone: [facility] 10-04-2022 rabies vaccine, for intramuscular injection Marco A Valdivia DO Work Phone: [facility] 07-01-2021 Pfizer SARS-CoV-2 Vaccination Marco A Valdivia DO Work Phone: [facility] 06-02-2021 Pfizer SARS-CoV-2 Vaccination Marco A Valdivia DO Work Phone: [facility] 05-18-2021 tetanus toxoid, redu janelle diphtheria toxoid, and acellular pertussis vaccine, adsorbed Josh Hicks MD Work Phone: [facility] 04-18-2018 meningococcal oligosaccharide (groups A, C, Y and W-135) diphtheria toxoid conjugate vaccine (MCV4O) [facility] 03-24-2013 tetanus toxoid, redu janelle diphtheria toxoid, and acellular pertussis vaccine, adsorbed [facility] 12-12-2007 varicella virus vaccine [facility] 12-16-2005 diphtheria, tetanus toxoids and acellular pertussis vaccine [facility] Work Phone: 12-16-2005 measles, mumps and rubella virus vaccine [facility] 12-16-2005 pneumococcal conjuga te vaccine, 7 valent Marco A Valdivia DO Work Phone: [facility] 12-16-2005 pneumococcal Conjuga te, unspecified formulation [facility] , [place] 12-16-2005 poliovirus vaccine, inactivated [facility] 05-18-2002 diphtheria, tetanus toxoids and acellular pertussis vaccine [facility] 05-18-2002 diphtheria, tetanus toxoids and acellular pertussis vaccine, unspecified formulation Marco A Valdivia DO Work Phone: [facility] 05-18-2002 haemophilus influenz ae type b vaccine, conjugate unspecified formulation Marco A Valdivia DO Work Phone: [facility] 05-18-2002 haemophilus influenz ae type b vaccine, HbOC conjugate Marco A Valdivia DO Work Phone: [facility] 05-18-2002 Hib, unspecified [facility] 02-09-2002 measles, mumps and rubella virus vaccine [facility] 02-09-2002 poliovirus vaccine, inactivated [facility] 02-09-2002 varicella virus vaccine [facility] 07-26-2001 diphtheria, tetanus toxoids and acellular pertussis vaccine [facility] 07-26-2001 haemophilus influenz ae type b vaccine, conjugate unspecified formulation Marco A Valdivia DO Work Phone: [facility] 07-26-2001 haemophilus influenz ae type b vaccine, HbOC conjugate Marc oA Valdivia DO Work Phone: [facility] 07-26-2001 hepatitis B vaccine, adult dosage Josh Hicks MD Work Phone: [facility] Work Phone: 07-26-2001 hepatitis B vaccine, pediatric or pediatric/adolescent dosage Marco A Valdivia DO Work Phone: [facility] 07-26-2001 hepatitis B vaccine, unspecified formulation [facility] , [place] 07-26-2001 Hib, unspecified [facility] 07-26-2001 pneumococcal conjuga te vaccine, 7 valent Marco A Avelara DO Work Phone: [facility] 07-26-2001 pneumococcal Conjuga te, unspecified formulation [facility] , [place] 05-27-2001 diphtheria, tetanus toxoids and acellular pertussis vaccine [facility], [place] 05-27-2001 diphtheria, tetanus toxoids and acellular pertussis vaccine, unspecified formulation Marco A Valdivia DO Work Phone: [facility] 05-27-2001 haemophilus influenz ae type b vaccine, conjugate unspecified formulation Marco A Valdivia DO Work Phone: [facility] 05-27-2001 haemophilus influenz ae type b vaccine, HbOC conjugate Marco A Valdivia DO Work Phone: [facility] 05-27-2001 hepatitis B vaccine, pediatric or pediatric/adolescent dosage [facility] 05-27-2001 Hib, unspecified [facility], [place] 05-27-2001 pneumococcal conjuga te vaccine, 7 valent Marco A Worleylla DO Work Phone: [facility] 05-27-2001 pneumococcal Conjuga te, unspecified formulation [facility] , [place] 05-27-2001 poliovirus vaccine, inactivated [facility] 03-08-2001 diphtheria, tetanus toxoids and acellular pertussis vaccine [facility], [place] 03-08-2001 haemophilus influenz ae type b vaccine, conjugate unspecified formulation Marco A Avelara DO Work Phone: [facility] 03-08-2001 haemophilus influenz ae type b vaccine, HbOC conjugate Marco A [facility] DO Work Phone: [facility] 03-08-2001 Hib, unspecified [facility], [place] 03-08-2001 pneumococcal conjuga te vaccine, 7 valent Marco A Avelara DO Work Phone: [facility] 03-08-2001 pneumococcal Conjuga te, unspecified formulation [facility] , [place] 03-08-2001 poliovirus vaccine, inactivated [facility], [place] 01-14-2001 hepatitis B vaccine, adult dosage Josh Hicks MD Work Phone: [facility] Work Phone: 01-14-2001 hepatitis B vaccine, pediatric or pediatric/adolescent dosage Marco A Worleylla DO Work Phone: [facility] 01-14-2001 hepatitis B vaccine, unspecified formulation [facility] , [place] 2000 hepatitis B vaccine, adult dosage Josh Hicks MD Work Phone: [facility] Work Phone: 2000 hepatitis B vaccine, pediatric or pediatric/adolescent dosage Marco A Meirlla DO Work Phone: [facility] 2000 hepatitis B vaccine, unspecified formulation [place], [place] Payers Date Payer Category Payer Medicaid [id number] 2022 Medicaid [id number] 2022 Private Health Insurance [id number] 2022 Private Health Insurance [id number] 2021 Unknown [id number] 2021 Unknown [employer] [id number] 2021-Present [address] [place] [address] Commercial [id number] 2020 Unknown [employer] [facility] MEDICAID [id number] 2020-Present [phone] CLAIMS DEPARTMENT [address] [place] [address] [id number] 2015 Unknown BCBS [place]BS - [place] P PO xxxxxxxxxxxx 2015-Present [address] [place] [address] xxxxxxxxxxxx [id number] 2000 Unknown [id number] Social History Date Type Detail Facility Start: 06-14-2019 End: 07-06-2019 Tobacco [facility] status [facility] Start: 06-14-2019 End: 08-20-2023 [facility] Start: 03-28-2019 End: 10-04-2022 History SDOH Alcohol Frequency 1 [facility]TONI[facility]A BEEBE Start: 03-28-2019 End: 02-19-2021 History SDOH Social Connections Phone 5 [facility]TONI[facility]A BEEBE Start: 03-28-2019 End: 10-04-2022 History SDOH Social Connections Membership 2 [place] Start: 03-28-2019 History SDOH Social Connections Living 7 [place] Start: 03-28-2019 History SDOH Physica l Activity MPS 6 [place] Start: 03-28-2019 History SDOH Financial 4 [place] Start: 2000 Sex Assigned At Not on file M [place] Start: 11-01-2019 End: 08-20-2023 Alcohol intake Current non-drinker of alcohol (finding) [facility] Work Phone: Start: 02-26-2020 End: 12-17-2021 Tobacco smoking status NHIS Current every [facility] Start: 02-26-2020 End: 08-20-2023 Cigarettes smoked current (pack per day) - Reported [place] Exposure to SARS-CoV -2 (event) Unable to assess [place] History of tobacco use [facility] Start: 12-18-2020 End: 12-17-2021 Tobacco use and exposure Never used [facility] Start: 11-04-2021 End: 04-21-2023 Exposure to SARS-CoV-2 (event) Not sure [facility] Start: 11-14-2021 Tobacco smoking stat us VTIS Ex-smoker [facility] How often to you hav e a drink containing alcohol? Monthly or less [facility] How many standard dr inks containing alcohol do you have on a typical day? 1 or 2 [facility] How often do you hav e 6 or more drinks on 1 occasion? Never [facility] Health Goals Date Patient Goal Desired Activity /State Clinical Notes 08-25-2019 to 09-13-2023 Telephone Encounter - Madeleine Galindo - 09/13/2023 9:14 AM ESTTelephone Encounter - Madeleine Galindo - 09/13/2023 9:14 AM ESTTelephone Encounter - Madeleine Galindo - 09/13/2023 9:13 AM ESTPatient Instructions Note Date & Type Note Facility 09-13-2023 Telephone encounter Note Orders pended for doctor signature [facility] 09-13-2023 Miscellaneous Notes Orders pended for doctor signature ----- Message from Amelie Salazar MA sent at 09/13/2023 8:59 AM EST ----- Placed call to patient. Two patient identifers confirmed. Was able to speak to patient. All concerns in message have been addressed. No questions at this time. Call ended Pt consents to referral. documented in this encounter [facility] 09-13-2023 Telephone encounter Note ----- Message from Amelie Salazar MA sent at 09/13/2023 8:59 AM EST ----- Placed call to patient. Two patient identifers confirmed. Was able to speak to patient. All concerns in message have been addressed. No questions at this time. Call ended Pt consents to referral. [facility] 08-27-2023 Note Addended by: QIAN RECIO on: 08/27/2023 08:16 AM Modules accepted: Orders [facility] 08-24-2023 Telephone encounter Note Sending to Dr. Valdivia for signing off of order [facility] 08-24-2023 Miscellaneous Notes Sending to Dr. Valdivia for signing off of order Patient was given central scheduling number was told to call and schedule in a few days to make sure order was signed. Orders pended for dx and doctor's signature Yes, pt can contact [facility] at [phone] to sched once orders are in. Message released to patient as written. Patient's further questions if applicable: Pt verbalized understanding of message: ----- Message from Clarissa Mittal MA sent at 07/26/2023 7:40 AM EST ----- ----- Message ----- From: Marco A Valdivia DO Sent: 07/25/2023 5:41 PM EST To: Qian Recio; Madeleine Galindo; # As expected abnormal. Post 30-day event monitor for patient. We will await results before cardiology consultation Pt states she has not received event monitor and would like a call to discuss next steps. Please advise. Thank you Were all questions from office addressed or relayed to the patient from encounter: Yes Placed call to patient. Unable to reach them by phone to discuss lab results. Left detailed message to return call to discuss results. Please release information to patient ----- Message from Clarissa Mittal MA sent at 07/26/2023 7:40 AM EST ----- ----- Message ----- From: Marco A Valdivia DO Sent: 07/25/2023 5:41 PM EST To: Qian Galindo; # As expected abnormal. Post 30-day event monitor for patient. We will await results before cardiology consultation documented in this encounter [facility] 07-26-2023 Telephone encounter Note Orders pended for dx and doctor's signature [facility] 07-26-2023 Miscellaneous Notes Orders pended for dx and doctor's signature ----- Message from Marco A Valdivia DO sent at 07/25/2023 5:41 PM EST ----- As expected abnormal. Post 30-day event monitor for patient. We will await results before cardiology consultation documented in this encounter [facility] 07-26-2023 Miscellaneous Notes Orders pended for dx and doctor's signature ----- Message from Marco A Valdivia DO sent at 07/25/2023 5:41 PM EST ----- As expected abnormal. Post 30-day event monitor for patient. We will await results before cardiology consultation documented in this encounter [facility] 07-26-2023 Telephone encounter Note ----- Message from Marco A Valdivia DO sent at 07/25/2023 5:41 PM EST ----- As expected abnormal. Post 30-day event monitor for patient. We will await results before cardiology consultation [facility] 07-26-2023 Telephone encounter Note Patient was given central scheduling number was told to call and schedule in a few days to make sure order was signed. [facility] 07-26-2023 Telephone encounter Note Orders pended for dx and doctor's signature [facility] 07-26-2023 Telephone encounter Note Yes, pt can contact [facility] atv [phone] to sched once orders are in. [facility] 07-26-2023 Telephone encounter Note Message released to patient as written. Patient's further questions if applicable: Pt verbalized understanding of message: ----- Message from Clarissa Mittal MA sent at 07/26/2023 7:40 AM EST ----- ----- Message ----- From: Marco A Valdivia DO Sent: 07/25/2023 5:41 PM EST To: Qian Galindo; # As expected abnormal. Post 30-day event monitor for patient. We will await results before cardiology consultation Pt states she has not received event monitor and would like a call to discuss next steps. Please advise. Thank you Were all questions from office addressed or relayed to the patient from encounter: Yes [facility] 07-26-2023 Telephone encounter Note Placed call to patient. Unable to reach them by phone to discuss lab results. Left detailed message to return call to discuss results. Please release information to patient [facility] 07-26-2023 Telephone encounter Note ----- Message from Clarissa Mittal MA sent at 07/26/2023 7:40 AM EST ----- ----- Message ----- From: Marco A Valdivia DO Sent: 07/25/2023 5:41 PM EST To: Qian Galindo; # As expected abnormal. Post 30-day event monitor for patient. We will await results before cardiology consultation [facility] 07-19-2023 History of Present illness Narrative Images from the original note were not included. [facility] [address] [facility] [place] [facility] [id number] Visit type: Established Patient Reason for Visit: Palpitations (Follow up, what to do next) Assessment / Plan: Krystin was seen today for palpitations. Diagnoses and all orders for this visit: Palpitations (Primary) Comments: Recurrent, anticipate 30-day event monitor and cardiology consultation Orders: - Basic metabolic panel; Future - CBC auto differential; Future - TSH; Future - T4; Future - T3; Future - Magnesium; Future - Basic metabolic panel - CBC auto differential - TSH - T4 - T3 - Magnesium - ECG 12 lead; Future - ECG 12 lead Polyuria - POCT urinalysis dipstick manually resulted Subjective: Patient ID: Krystin Henry is a 22 y.o. female. HPI patient with nicotine vaping history presents back to discuss ongoing palpitations over the last 2-1/2 years. Work-up in 2020 with echocardiogram, lab work and heart monitor showed no substantial arrhythmia. In review she states she has bursts of palpitations with and without exercise. Not accompanied by symptoms of chest pain dyspnea or lightheadedness. Unpredictable. Does not feel related to stress. Review of Systems no constitutional symptoms. Presently on no meds. No ENT complaints. No thyroid dysfunction symptoms. No exertional chest pain jaw pain cough PND orthopnea claudication or edema. No GI or symptoms. Menses are relatively normal. Not on control. 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 Not exercising routinely. No history of arrhythmia in her family. Allergies Allergen Reactions Lidocaine Rash Other reaction(s): Rash Current Outpatient Medications on File Prior to Visit Medication Sig Dispense Refill loratadine (Claritin) 10 MG tablet Take 10 mg by mouth. No current facility-administered medications on file prior to visit. Patient Active Problem List Diagnosis Uses oral contraception Irene-Schlatter's disease Detached retina, right Social History Tobacco Use Smoking status: Every Day Smokeless tobacco: Never Substance Use Topics Alcohol use: No Alcohol/week: 0.0 standard drinks of alcohol Past Surgical History: Procedure Laterality Date NASAL SEPTUM SURGERY Bilateral 02/28/2020 inferior turbinater reduction NASAL SEPTUM SURGERY 12/24/2021 Septoplasty, bilateral inferior turbinate hypertrophy NOSE SURGERY 11/01/2019 closed reduction nasal bone fracture RETINAL DETACHMENT SURGERY Right 10/2022 WISDOM TOOTH EXTRACTION 09/2017 Family History Problem Relation Name Age of Onset No Known Problems Mother Yoko No Known Problems Father Aayush No Known Problems Brother Elijah Objective: BP 110/60 Pulse 75 Temp 36.6 C (97.9 F) (Temporal) Ht 5' 2 (1.575 m) Wt 134 lb (60.8 kg) SpO2 99% BMI 24.51 kg/m Physical Exam Exam is very normal and unchanged. Pleasant alert and cooperative. Nonicteric. ENT. No thyroid or neck masses. No adenopathy. Heart is regular without ectopy murmurs or gallops. Lungs are clear. Abdomen scaphoid without pain hepatosplenomegaly masses ascites or bruits. Extremities are pink without edema. Physiologic reflexes EKG sinus rhythm without acute changes documented in this encounter [facility] 04-21-2023 History of Present illness Narrative Images from the original note were not included. [facility] [address] [place] [id number] Visit type: Established Patient Reason for Visit: Sore Throat (coughing) Assessment / Plan: Krystin was seen today for sore throat. Diagnoses and all orders for this visit: Sinobronchitis (Primary) Comments: Acute mild, Ceftin OTC Robitussin-DM as needed Detached retina, right Other orders - cefuroxime (Ceftin) 250 MG tablet; Take 1 tablet (250 mg) by mouth 2 times daily for 10 days. Subjective: Patient ID: Krystin Henry is a 22 y.o. female. HPI non-smoker presents with 7 to 8 days of persistent rhinorrhea and cough. Productive of slightly discolored phlegm. No headache fever loss of smell or taste. Did not bother to do any COVID exams. Review of Systems recent retinal detachment the right side is being addressed per ophthalmology. No headache or confusion. No abdominal pain. Eating voiding well. Stopped control a few weeks ago. Will be following up with [facility]. Denies possibility of being Allergies Allergen Reactions Lidocaine Rash Other reaction(s): Rash Current Outpatient Medications on File Prior to Visit Medication Sig Dispense Refill loratadine (Claritin) 10 MG tablet Take 10 mg by mouth. [DISCONTINUED] norethindrone-ethinyl estradiol (Dasetta ) 0.5/0.75/1-35 MG-MCG tablet Take 1 tablet by mouth daily. (Patient not taking: Reported on 04/21/2023) 84 tablet 3 No current facility-administered medications on file prior to visit. Patient Active Problem List Diagnosis Uses oral contraception Byron-Schlatter's disease Detached retina, right Social History Tobacco Use Smoking status: Every Day Smokeless tobacco: Never Substance Use Topics Alcohol use: No Alcohol/week: 0.0 standard drinks of alcohol Past Surgical History: Procedure Laterality Date NASAL SEPTUM SURGERY Bilateral 02/28/2020 inferior turbinater reduction NASAL SEPTUM SURGERY 12/24/2021 Septoplasty, bilateral inferior turbinate hypertrophy NOSE SURGERY 11/01/2019 closed reduction nasal bone fracture RETINAL DETACHMENT SURGERY Right 10/2022 WISDOM TOOTH EXTRACTION 09/2017 Family History Problem Relation Name Age of Onset No Known Problems Brother Elijah No Known Problems Mother Yoko No Known Problems Father Aayush Objective: BP 117/77 Pulse 82 Temp 36.7 C (98 F) (Temporal) Ht 5' 2 (1.575 m) Wt 137 lb (62.1 kg) SpO2 99% BMI 25.06 kg/m Physical Exam pleasant cooperative. Jessica PND. Parachute oropharynx. No neck masses JVD adenopathy. Normal eardrums and sinus evaluation. Heart is rate without gallops or murmurs. Lungs a few upper rhonchi but no rales wheezes or egophony. Abdomen soft scaphoid without pain hepatosplenomegaly or masses. No adenopathy. Extremities are pink without edema documented in this encounter [facility] 02-18-2023 History of Present illness Narrative Krystin Henry 02/18/2023 22 y.o. Primary Care Physician: Marco A Valdivia DO Chief Complaint Patient presents with New Patient Annual exam HPI : Krystin Henry is a 22 y.o. female here for annual exam. __ Gynecologic History: Patient's last menstrual period was 02/11/2023 (approximate). Menses are regular. Menses occur every regular every 28-30 days. Flow is moderate Intermenstrual bleeding: no Dysmenorrhea: mild, prior to and before menses Sexually Active: Yes Dyspareunia: Yes, feels sharp pain with sex, different positions better then others, has occurred for 2 years, with different partners. Will be worst at the beginning, but improves as they continue, but does not feel she is lacking lubrication. 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 Major depression 12/2016 Byron-Schlatter's disease 2016 right knee ([place]) Uses oral contraception Past Surgical History: Procedure Laterality Date NASAL SEPTUM SURGERY Bilateral 02/28/2020 inferior turbinater reduction NASAL SEPTUM SURGERY 12/24/2021 Septoplasty, bilateral inferior turbinate hypertrophy NOSE SURGERY 11/01/2019 closed reduction nasal bone fracture RETINAL DETACHMENT SURGERY Right 10/2022 WISDOM TOOTH EXTRACTION 09/2017 Family History Problem Relation Name Age of Onset No Known Problems Brother Elijah No Known Problems Mother Yoko No Known Problems Father Aayush Social History Socioeconomic History Marital status: Single Spouse name: Not on file Number of children: Not on file Years of education: Not on file Highest education level: Not on file Occupational History Not on file Tobacco Use Smoking status: Every Day Smokeless tobacco: Never Substance and Sexual Activity Alcohol use: No Alcohol/week: 0.0 standard drinks of alcohol Drug use: No Sexual activity: Yes Partners: Male control/protection: OCP Other Topics Concern Not on file Social History Narrative Lives with mother and younger brother. 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 Vaping . 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 Social Determinants of Health Financial Resource Strain: Not on file Food Insecurity: Not on file Transportation Needs: Not on file Physical Activity: Not on file Stress: Not on file Social Connections: Not on file Intimate Partner Violence: Not on file Housing Stability: Not on file MEDICATIONS: Current Outpatient Medications Medication Sig Dispense Refill loratadine (Claritin) 10 MG tablet Take 10 mg by mouth. norgestimate-ethinyl estradiol (Sprintec 28) 0.25-35 MG-MCG tablet Take 1 tablet by mouth daily. Take one tablet daily 28 tablet 12 No current facility-administered medications for this visit. ALLERGIES: Allergies as of 02/18/2023 - Reviewed 02/18/2023 Allergen Reaction Noted Lidocaine Rash 01/21/2016 REVIEW OF SYSTEMS: CONSTIUTIONAL: No weight change or fatigue. No fever or chills. No changes in appetite. CV: No chest pain, palpitations, or syncope. RESPIRATORY: No SOB, cough, or wheezing. BREAST: No breast abnormalities or lumps. GI: No nausea, vomiting, diarrhea, constipation, bloating or bowel changes. No blood or mucous with bowel movements or melena. : No dysuria, frequency, hesitancy, urgency. No urinary incontinence. No vaginal discharge, odor, or itch. No dyspareunia. NEURO: No weakness or sensory changes MUSCULOSKELETAL: No back pain or arthralgias. HEME and LYMPH : No lymphoma or abnormal bleeding history PHYSICAL EXAM: Vitals: 02/18/23 1005 BP: (!) 133/91 Pulse: 76 Weight: 136 lb (61.7 kg) Height: 5' 2 (1.575 m) Body mass index is 24.87 kg/m . 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 nontender BLADDER: non tender PELVIC SUPPORT DEFECTS: normal support of vagina, uterus, and bladder ANUS/PERINEUM: no hemorrhoids, masses or warts noted ASSESSMENT/PLAN: Krystin was seen today for new patient. 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 Vaginalis RNA, QL TMA ([facility]) Screen for STD (sexually transmitted disease) - Chlamydia/N.Gonorrhoeae and T. Vaginalis RNA, QL TMA ([facility]) Encounter for initial prescription of contraceptive pills - norgestimate-ethinyl estradiol (Sprintec 28) 0.25-35 MG-MCG tablet; Take 1 tablet by mouth daily. Take one tablet daily Follow up in about 1 year (around 02/19/2024) for annual. control and STD prevention reviewed. Patient with worsening dyspareunia and cramping after years of use with current pills, discussed switching to another to see if works better. No obvious etiology on exam, will check STDs, discussed possible endometriosis, but pills should continue to improve this. Discussed other endom treatments, but hormonal contraception only one that can be continued indefinitely and is also control. Discussed Gardasil vaccine. Discussed pap guidelines and routine gynecologic preventative care/screening. Self breast exam discussed. Weight management through healthy diet and regular exercise reviewed. Advised use of MVI and vit D supplementation, calcium through diet if able. Routine health maintenance per patient's PCP as well. Elizabeth Allen M.D. 02/18/2023 at 10:28 AM (Electronically Signed) documented in this encounter [facility] 01-28-2023 Telephone encounter Note Placed call to patient to discuss provider direction. Message left on voicemail to return call. Also a letter was mailed to last known address. [facility] 01-28-2023 Miscellaneous Notes Placed call to patient to discuss provider direction. Message left on voicemail to return call. Also a letter was mailed to last known address. Placed call to patient to discuss provider direction. Message left on voicemail to return call. Also a My Chart message was sent. Patient was left a detailed message to call and schedule her pap smear. L/M for patient to call and schedule a female exam Prescription completed but she is due for Pap smear. Rx loaded documented in this encounter [facility] 01-26-2023 Telephone encounter Note Placed call to patient to discuss provider direction. Message left on voicemail to return call. Also a My Chart message was sent. [facility] 01-26-2023 Miscellaneous Notes Placed call to patient to discuss provider direction. Message left on voicemail to return call. Also a My Chart message was sent. Patient was left a detailed message to call and schedule her pap smear. L/M for patient to call and schedule a female exam Prescription completed but she is due for Pap smear. Rx loaded documented in this encounter [facility] 01-21-2023 Telephone encounter Note Patient was left a detailed message to call and schedule her pap smear. [facility] 01-21-2023 Telephone encounter Note L/M for patient to call and schedule a female exam [facility] 01-20-2023 Telephone encounter Note Prescription completed but she is due for Pap smear. [facility] 01-20-2023 Telephone encounter Note Rx loaded [facility] 12-01-2022 History of Present illness Narrative Images from the original note were not included. [facility] [address] [place] [id number] Visit type: Established Patient Reason for Visit: Abdominal Pain (Started yesterday at noon) Assessment / Plan: Krystin was seen today for abdominal pain. Diagnoses and all orders for this visit: Diarrhea, unspecified type (Primary) Comments: New onset, clear liquids, Zofran, call with worsening symptoms. Pain of upper abdomen - CBC auto differential; Future - Comprehensive metabolic panel; Future - Lipase; Future - CBC auto differential - Comprehensive metabolic panel - Lipase Other orders - ondansetron (Zofran) 4 MG tablet; Take 1 tablet (4 mg) by mouth every 8 hours as needed for nausea or vomiting for up to 12 days. Subjective: Patient ID: Krystin Henry is a 21 y.o. female. HPI patient presents with 24 hours of right-sided abdominal pain. Began in the midepigastrium and now associate with a few bouts of diarrhea this morning. No fever or emesis buttocks accompanied by nausea. No prior history of chronic recurring midepigastric or right upper quadrant abdominal pain. She does vape. No alcohol use or NSAID use. Bowels have been pretty regular until this morning. No melena or blood. Review of Systems menses are normal on control pills. 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 Had ultrasound of gallbladder [address] of the abdomen for vomiting diarrhea a year ago. Generally pretty healthy. No loss of appetite or weight. 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 No recent travels or antibiotic use. Allergies Allergen Reactions Lidocaine Rash Other reaction(s): Rash Current Outpatient Medications on File Prior to Visit Medication Sig Dispense Refill loratadine (Claritin) 10 MG tablet Take 10 mg by mouth. norethindrone-ethinyl estradiol (Dasetta ) 0.5/0.75/1-35 MG-MCG tablet Take 1 tablet by mouth daily. 28 tablet 1 prednisoLONE acetate (Pred-Forte) 1 % ophthalmic suspension instill 1 drop into right eye four times a day START AFTER ONE DAY POST OP benzonatate (Tessalon) 100 MG capsule Take 1 capsule (100 mg) by mouth every 8 hours as needed for cough. (Patient not taking: Reported on 12/01/2022) 21 capsule 0 [DISCONTINUED] albuterol 108 (90 Base) MCG/ACT inhaler Inhale 2 puffs every 4 hours as needed. No current facility-administered medications on file prior to visit. Patient Active Problem List Diagnosis Uses oral contraception Irene-Schlatter's disease Social History Tobacco Use Smoking status: Every Day Smokeless tobacco: Never Substance Use Topics Alcohol use: No Alcohol/week: 0.0 standard drinks Past Surgical History: Procedure Laterality Date NASAL SEPTUM SURGERY Bilateral 02/28/2020 inferior turbinater reduction NASAL SEPTUM SURGERY 12/24/2021 Septoplasty, bilateral inferior turbinate hypertrophy NOSE SURGERY 11/01/2019 closed reduction nasal bone fracture RETINAL DETACHMENT SURGERY Right 10/2022 WISDOM TOOTH EXTRACTION 09/2017 Family History Problem Relation Name Age of Onset No Known Problems Brother Elijah No Known Problems Mother Yoko No Known Problems Father Aayush Objective: BP 114/79 Pulse (!) 113 Temp 36.6 C (97.8 F) (Temporal) Ht 5' 2 (1.575 m) Wt 134 lb (60.8 kg) SpO2 97% BMI 24.51 kg/m Physical Exam she appears well. Nonicteric. Well-hydrated. Normal eardrums and oropharynx. No adenopathy or thyroid lesions. Heart is regular. Lungs are clear. Abdomen tender in the right abdomen but no guarding rigidity rebound tenderness. Good bowel sounds. No hepatosplenomegaly masses. No adenopathy. Neg heel strike or McBurney's point pain. No pain in the lower quadrants or pelvis. She defers REEL REPAIRER exam. documented in this encounter [facility] 12-01-2022 Instructions Marco A Valdivia DO - 12/01/2022 10:00 AM EDT Call to schedule REEL REPAIRER exam here or with hairspring cutter. documented in this encounter [facility] 11-25-2022 Telephone encounter Note Pt is scheduled 12/01/22 [facility] 11-25-2022 Miscellaneous Notes Pt is scheduled 12/01/22 Please assist in scheduling Refill completed, patient overdue for Pap smear. Should have been completed at age 21 Rx loaded Last ov 04/24/22 No next ov scheduled Patient out [facility] Medication name: DASETTA 0.5/0.75/1-35 MG-MCG per tablet Medication dosage: 0.5/0.75/1-35 MG-MCG per tablet mg (Miligrams Monthly quantity needed: 1 Pack How many day supply requestin days with refills Medication route: oral (PO) Medication administration time(s): daily If taking medication PRN, reason for taking medication: N/A If this is a controlled substance do you receive this or any other controlled medication from any other doctor or facility: N/A Ordering provider: Date of last office visit: 04/24/22 Date of next office visit: None Date of last refill: (see medication tab): 04/13/22 Updated/Validated preferred pharmacy: Yes [id number] - [place], [address] [phone] Patient instructed to contact the pharmacy prior to picking up the medication: Yes documented in this encounter [facility] 11-25-2022 Telephone encounter Note Please assist in scheduling [facility] 11-24-2022 Telephone encounter Note Refill completed, patient overdue for Pap smear. Should have been completed at age 21 [facility] 11-24-2022 Telephone encounter Note Rx loaded Last ov 04/24/22 No next ov scheduled [facility] 11-24-2022 Telephone encounter Note [facility] Medication name: LEANDRO 0.5/0.75/1-35 MG-MCG per tablet Medication dosage: 0.5/0.75/1-35 MG-MCG per tablet mg (Miligrams Monthly quantity needed: 1 Pack How many day supply requestin days with refills Medication route: oral (PO) Medication administration time(s): daily If taking medication PRN, reason for taking medication: N/A If this is a controlled substance do you receive this or any other controlled medication from any other doctor or facility: N/A Ordering provider: Date of last office visit: 04/24/22 Date of next office visit: None Date of last refill: (see medication tab): 04/13/22 Updated/Validated preferred pharmacy: Yes [id number] - [place], [place] - [address] [place] [address] Patient instructed to contact the pharmacy prior to picking up the medication: Yes [facility] 10-06-2022 Note Chart reviewed of ED follow up Seen in [facility] ED on 10/04/22 Reason: Animal Bite Discharge instructions: Follow up with your PCP ED message and education sent via [employer]. [facility] 12-24-2021 History of Present illness Narrative Pt is satisfied with her pain control after previous dose of oxycodone. Prescriptions brought to bedside. Mom and daughter have been pleasure to work with in recovery, they expressed satisfaction today. Nasal dressing pad changed, scant drainage noted. Discharge information given to the patient and mom at bedside. Patient and family verbalized understanding of information. All questions were answered before discharge. Patient ambulated, denies dizziness or nausea. Tolerating PO fluids and crackers. Vital signs are stable. Patient has changed and is being discharged home in a wheelchair with valuables. Pt was given 5mg oxycodone PO for pain 6/10. Pt's pain now 10/10. 1 additional dose of oxycodone was obtained for uncontrolled pain which totals 10mg. VSS. Will continue to monitor. Mom at bedside in recovery visiting documented in this encounter [employer] Work Phone: 12-24-2021 Hospital Discharge instructions Steven Martinez, DO - 12/24/2021 Images from the original note were not included. [facility] [address] [facility] [address] Dept: [phone] Dept Loc: [phone] POST-OP NASAL SURGERY INSTRUCTIONS Diet Resume regular diet. Avoid hot and spicy foods, as this may increase nasal blood flow and oozing Drink plenty of liquids Activity DO NOT blow your nose. Cough and sneeze with you mouth open if you need to do so. Avoid Straining, bending or lifting or vigorous exercise for 2 weeks Keep the head of your bed elevated to reduce swelling for the first 72 hours May shower the day after surgery General Instructions Bleeding from your nose will occur from time to time, do not become alarmed. Excessive bleeding or bleeding that does not subside after 15 minutes, you should call the number above. Change the drip pad under your nose as needed You may place ice packs on your nose to alleviate swelling and discomfort. DO NOT place ice packs directly on nose, wrap the pack in a cloth before application. Splints will be placed in your nose, this will cause stuffiness and mild discomfort. They will be removed at your first post-op visit. Medications Resume your normal medications Take antibiotics prescribed Take pain medications as needed for pain DO NOT take aspirin or aspirin products. NO Advil, Motrin, Aleve, Ibuprofen for two weeks following surgery. DO NOT use any herbal medicines/diet pills for two weeks after surgery. Saline nasal spray can be purchased over the counter, and should be used 4 times daily to keep the nasal passageways moist. Call the Office Fever greater than 100.4 Excessive nasal bleeding. Sudden increase in pain documented in this encounter [employer] Phone: 12-17-2021 Hospital Discharge instructions Zainab Golden RN - 12/17/2021 Please bring your [facility] Surgical Information folder on the day of surgery. Please bring a photo ID and insurance information TAKE ONLY the following medications the morning of your surgery VENLAFAXINE (EFFEXOR XR) You may take your prescription pain medications. YOU MAY TAKE TYLENOL IF NEEDED No Motrin, Ibuprofen, or Advil 24 hours prior to surgery, or longer if instructed by your surgeon. No Aleve or Naprosyn 3 days prior to surgery, or longer if instructed by your surgeon. NO ASPIRIN OR ASPIRIN CONTAINING PRODUCTS 5 DAYS PRIOR TO SURGERY Additional instructions Please shower with an antibacterial soap( example DIAL OR SAFEGUARD) FOLLOW ANY OTHER INSTRUCTIONS THAT DR MARTINEZ MAY HAVE GIVEN YOU You will receive a reminder call the day before surgery with your Same Day Surgery arrival time. If you have specific questions, please call your surgeon. As a reminder you will be asked to provide a urine sample upon arrival at Same Day Surgery. Please do not void prior to arrival. ENTER BUILDING AT THE MAIN ENTRANCE. TAKE THE H ELEVATOR TO THE FIRST FLOOR, TURN LEFT OFF THE ELEVATOR AND GO TO THE SAME DAY SURGERY REGISTRATION DESK TO CHECK IN You may use the parking in the Main deck. Take the level one bridge to the building and follow the signs for same day surgery. Check in at the desk. Pre-operative information - Control and Anesthesia Drug Interactions During your upcoming anesthesia care, you may receive one of a few drugs that may reduce the effectiveness of your control medications. Possible medications given may include Emend and/or Sugammadex. You need to be aware of this if you are on any type of hormonal contraceptive control medication as this could be affected. 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 The following attachments cannot be sent through Care Everywhere.Nasal Septum Repair Surgery: Post-op (Malagasy)documented in this encounter [facility] Work Phone: 12-17-2021 History of Present illness Narrative Nursing, General, and Perioperative Care Plans Initiated. documented in this encounter [facility] Work Phone: 05-02-2021 Note HNO ID: [id number] Author: Amanda Palomino PA-C Service: ? Author Type: Physician Case Resource Manager Type: Progress Notes Filed: 05/02/2021 1:03 PM Note Text: SUBJECTIVE Krystin Henry is a 20 year old female who presents with 1 week of symptoms that are stable. Symptoms include: Fever (?100.4F): No or Chills: No Cough: Yes Shortness of breath: No or Difficulty breathing: No Fatigue: Yes Muscle aches: No Headache: Yes New loss of smell or taste: No Sore throat: Yes Nasal congestion: Yes or Rhinorrhea: No Nausea: No or Vomiting: No Diarrhea: No High risk category assessment No high risk factors Exposures: Sick contacts? Yes Family or close contacts with confirmed/probable COVID-19 in last 14 days? No She reports that she has never smoked. She has never used smokeless tobacco. OBJECTIVE BP 129/90 Pulse 72 Temp 36.9 ?C (98.5 ?F) (Oral) Wt 58.4 kg (128 lb 12.8 oz) LMP 04/27/2021 (Approximate) SpO2 99% GENERAL: well appearing, alert, in no acute distress HEENT: no conjunctival injection, pupils equal and oropharynx clear without erythema PULMONARY: breathing comfortably on room air , no coughing noted, no wheezing noted and lungs CTA Heart: RRR. No murmur ASSESSMENT/PLAN ASSESSMENT/PLAN: 1. Sore throat - ICD9: 462, ICD10: J02.9 (primary diagnosis) - Alere Strep Test neg , no culture pending - Discussed supportive care treatment with fluids, rest and analgesia. - The patient should follow up in 3-5 days if symptoms persist or worsen - Call back if drooling, increased temperature, symptoms of dehydration and/or still sick in one week - STREP A MOLECULAR (POC) 2. Suspected COVID-19 virus infection - ICD9: V01.79, ICD10: Z20.822 - 2019 CORONAVIRUS Amanda Palomino PA-C - Meets symptom-based criteria for testing and is low risk. - COVID swab collected at time of office visit - Instructed to isolate pending test results - Discussed symptom monitoring and supportive care - Red flag symptoms requiring follow up discussed This patient encounter involved the screening or treatment of novel coronavirus infection (COVID-19). [facility] 01-01-2021 Note Procedure: PORTABLE CHEST Ordering Provider: Jr Locke Order Date: 01/01/2021 3:33 PM PORTABLE CHEST Clinical Statement: Chest pain Comparison: None available FINDINGS: Cardiomediastinal silhouette is normal. No focal consolidation, pleural effusion, vascular congestion or pneumothorax. No acute osseous abnormalities. IMPRESSION: No acute cardiopulmonary abnormalities. Dictated by Waiter/Waitress Formal: Carlos Hall DO Reviewed and Signed by: Dez Mustafa MD ---- Electronic Signature on File ---- Signed By: Dez Mustafa MD [email or web address] Dictated: 01/01/2021 4:27 PM Signed: 01/01/2021 4:45 PM Reported By: DEZ MUSTAFA M.D. Signed By: DEZ MUSTAFA M.D. [facility] 08-25-2019 Hospital Discharge instructions Armando Hernandez MD - 08/25/2019 Stopthe antibiotic as yor urine is clean. Your lab data are normal. Start a clear liquid diet for 2 days The following attachments cannot be sent through Care Everywhere.Constipation: Teen (Malagasy)documented in this encounter [facility] Work Phone: documented in this encounter [facility] Work Phone: Evaluation note* Diagnosis RUQ abdominal pain Abdominal pain, right upper quadrant documented in this encounter [facility] Work Phone: Evaluation note* Diagnosis Acute pharyngitis, unspecified etiology- Primary documented in this encounter [facility] Work Phone: Evaluation note* Diagnosis Fall, initial encounter- Primary Injury of nose, initial encounter Injury of head, initial encounter documented in this encounter [facility] Work Phone: Evaluation note* Diagnosis Constipation, unspecified constipation type- Primary Medication side effect Unspecified adverse effect of unspecified drug, medicinal and biological substance documented in this encounter [facility] Work Phone: Evaluation note* Diagnosis History of depression- Primary Personal history of other mental disorder Acute alcoholic intoxication without complication (HCC) documented in this encounter [facility] Work Phone: Evaluation note* Diagnosis Post-op pain- Primary Other acute postoperative pain documented in this encounter [facility] Work Phone: Evaluation note* Diagnosis Diarrhea, unspecified type- Primary Pain of upper abdomen [facility] Encntr for flour distributor exam (general) (routine) w abnormal findings- Primary Screening for cervical cancer Screening for malignant neoplasm of the cervix Dyspareunia in female Screen for STD (sexually transmitted disease) Screening examination for venereal disease Encounter for initial prescription of contraceptive pills [facility] HospitalEvaluation note* Diagnosis Sinobronchitis- Primary Detached retina, right Unspecified retinal detachment documented in this encounter [facility]* Diagnosis Palpitations- Primary Polyuria documented in this encounter [facility]* Diagnosis Palpitations- Primary documented in this encounter [facility]* Diagnosis Palpitations documented in this [facility] Diagnosis Palpitations- Primary documented in this encounter [facility]* Diagnosis Palpitations- Primary documented in this encounter [facility]* Diagnosis Palpitations [facility] in this [facility]* Attachments The following attachments cannot be sent through Care Everywhere. * Sore Throat (Malagasy) documented in [facility] encounterS[facility] Work Phone: Hospital Discharge instructions* Attachments The following attachments cannot be sent through Care Everywhere. 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 They will be able to prescribe medications for your depression. In the meantime you are to stay on your Effexor daily as prescribed. Do not miss any doses. If your symptoms worsen or you develop new symptoms please come back to the emergency department. Please decrease your alcohol consumption. This contributes to anxiety and depression. * Attachments The following attachments cannot be sent through Care Everywhere. * Alcohol Intoxication: Acute (Malagasy) * Depression: Chronic Disease (Malagasy) documented in this encounterSUMMA Work Phone: Reason for referral (narrative)* Consultation (Routine) - Authorized Specialty Diagnoses / Procedures Referred By Refugio [email or web address] Referred To Contact Cardiology Diagnoses Palpitations Procedures [place] OFFICE/OUTPATIENT NEW HIGH MDM 60 MINUTES Marco A Valdivia DO [address] [place] [address] [facility] Card [address] [place] [address] Referral ID Status Reason Start Date Expiration Date Visits Requested Visits Authorized [id number] Authorized Specialty Services Required 09/13/2023 09/12/2024 1 1 [facility] Health Assessments Diagnosis Right hip pain Pain in joint, pelvic region and thigh Diagnosis Postoperative pain- Primary Other acute postoperative pain Diagnosis Postoperative pain Other acute postoperative pain Diagnosis Post-op pain Other acute postoperative pain Diagnosis Torticollis- Primary Torticollis, unspecified Diagnosis Closed head injury, initial encounter Concussion without loss of consciousness, initial encounter Diagnosis Right hip pain Pain in joint, pelvic region and thigh Advance Directives No Advanced Directives Records FoundDocuments on File Type Date Recorded Patient Cornice Maker Expl anation Advance Directives and Living Will Power of Jazz Musician Latest Code Status on File Code Status Date Activated Date Inactivated Comments Full Code 11/01/2019 10:52 AM Latest Code Status on File Code Status Date Activated Date Inactivated Comments Full Code 11/01/2019 10:52 AM 11/01/2019 6:09 PM Latest Code Status on File Code Status Date Activated Date Inactivated Comments Full Code 02/28/2020 7:28 AM Full Code 11/01/2019 10:52 AM 11/01/2019 6:09 PM Latest Code Status on File Code Status Date Activated Date Inactivated Comments Full Code 02/28/2020 7:28 AM 02/28/2020 1:48 PM Documents on File Type Date Recorded Patient Cornice Maker Expl anation Advance Directives and Living Will Power of Jazz Musician Documents on File Type Date Recorded Patient Cornice Maker Expl anation ACP-Advance Directive ACP-Power of Jazz Musician Latest Code Status on File Code Status Date Activated Date Inactivated Comments Full Code 02/28/2020 7:28 AM 02/28/2020 1:48 PM Full Code 11/01/2019 10:52 AM 11/01/2019 6:09 PM Documents on File Type Date Recorded Patient Cornice Maker Expl anation ACP-Advance Directive ACP-Power of Jazz Musician Latest Code Status on File Code Status Date Activated Date Inactivated Comments Full Code 12/24/2021 7:02 AM Full Code 02/28/2020 7:28 AM 02/28/2020 1:48 PM Discharge Instructions * Instructions* Lon Saldaña RN - 11/01/2019 [facility] E[facility] [address] [facility] [address] Dept: [phone] Dept Loc: [phone] POST-OP NASAL SURGERY INSTRUCTIONS Diet ? Resume regular diet. ? Avoid hot and spicy foods, as this may increase nasal blood flow and oozing ? Drink plenty of liquids Activity ? DO NOT blow your nose. Cough and sneeze with you mouth open if you need to do so. ? Avoid Straining, bending or lifting or vigorous exercise for 2 weeks ? Keep the head of your bed elevated to reduce swelling for the first 72 hours ? May shower the day after surgery General Instructions ? Bleeding from your nose will occur from time to time, do not become alarmed. Excessive bleeding or bleeding that does not subside after 15 minutes, you should call the number above. ? Change the drip pad under your nose as needed ? You may place ice packs on your nose to alleviate swelling and discomfort. DO NOT place ice packsdirectly on nose, wrap the pack in a cloth before application. Medications ? Resume your normal medications ? Take pain medications as needed for pain ? DO NOT take aspirin or aspirin products. NO Advil, Motrin, Aleve, Ibuprofen for two weeks following surgery. ? DO NOT use any herbal medicines/diet pills for two weeks after surgery. ? Saline nasal spray can be purchased over the counter, and should be used 4 times daily to keep the nasal passageways moist. Call the Office ? Fever greater than 100.4 ? Excessive nasal bleeding. ? Sudden increase in pain documented in this encounter* Instructions* Phyllis Arreola, SHANNAN - 02/26/2020 Shower with an antibacterial soap such as Dial or Safeguard. Please bring your [facility] Surgical Information folder on the day of surgery. Please cali the last dose taken (date and time ) on your Daily Medications List provided in your After Visit Summary. Please bring a photo ID and insurance information TAKE the following medications the morning of your surgery: BC PILL IF TAKEN IN AM Pre-operative information - Control and Anesthesia Drug Interactions During your upcoming anesthesia care, you may receive one of a few drugs that may reduce the effectiveness of your control medications. Possible medications given may include Emend and/or Sugammadex. You need to be aware of this if you are on any type of hormonal contraceptive control medication as this could be affected. 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
== END | disposition home or self-care (01) ==
LOC: US 12:27
PROVIDERS: PCP Family Medicine; Referring Provider Advanced Practice Midwife; Visit Provider Advanced Practice Midwife
DX: Z34.90 Encounter for supervision of normal pregnancy, unspecified, unspecified trimester (principal); Z3A.00 Weeks of gestation of pregnancy not specified
CPT/HCPCS: 76817

== ENCOUNTER → 2023-10-05 | Outpatient (CLI) | payer OTHER, SELFPAY ==
--- OUTSIDE RECORDS SUMMARY | 2023-10-05 17:35 | XMS RPT_ITS | CCD ---
Author Name Unknown Address [address] [place] [address] Organization [facility] Care Team Providers Care Retail Salesperson Name Role Phone Shea Marco A Carrillo Primary Care Provider Self, Referral Referring Unavailable Mulugeta Garces Attending [...] Lidocaine (4 sources) Lidocaine Drug Allergy 01-21-2016 [facility] (20 sources) Lidocaine Drug Allergy 01-21-2016 [facility], [place] Medications Current Medications Medication Drug Class(es) Dates Sig (Normalized) Sig (Original) acetaminophen 500 mg oral tablet (20 sources) Start: 12-24-2021 acetaminophen (TYLENOL) tablet 1,000 mg Completed/Discontinued Medications Medication Drug Class(es) Dates Sig (Normalized) Sig (Original) [id number] 200 actuat albuterol 0.09 mg/actuat metered dose [...] bone disease and musculoskeletal deformities (20 sources) [place] Schlatter disease; 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] Onset: 10-26-2019 [...] cm Marco A Valdivia DO Work Phone: [employer] 07-19-2023 14:05-0500 Body mass index (BMI) [Ratio] 24.51 kg/m2 Marco A Valdivia [employer] Work Phone: [employer] 07-19-2023 14:05-0500 Body temperature 97.9 [degF] Marco A Valdivia DO Work Phone: [employer] 07-19-2023 14:05-0500 Body weight 60.78 kg Marco A Valdivia DO Work Phone: [employer] 07-19-2023 14:05-0500 Diastolic blood pressure 60 mm[Hg] Marco A Valdivia DO Work Phone: [employer] 07-19-2023 14:05-0500 Heart rate 75 /min Marco A Valdivia [employer] Work Phone: [employer] 07-19-2023 14:05-0500 SaO2% (BldA) [Mass fraction] 99 % Marco A Valdivia DO Work Phone: [facility] [employer] 07-19-2023 14:05-0500 Systolic blood pressure 110 mm[Hg] Marco A Valdivia DO Work Phone: [facility] [employer] 04-21-2023 15:27-0400 Body height 157.5 cm Marco A Valdivia DO Work Phone: [employer] 04-21-2023 15:27-0400 Body mass index (BMI) [Ratio] 25.06 kg/m2 Marco A Valdivia DO Work Phone: [employer] 04-21-2023 15:27-0400 Body temperature 98.01 [degF] Marco A Valdivia DO Work Phone: [employer] 04-21-2023 15:27-0400 Body weight 62.14 kg Marco A Valdivia DO Work Phone: [facility] [employer] 04-21-2023 15:27-0400 Diastolic blood pressure 77 mm[Hg] Marco A Valdivia DO Work Phone: [employer] 04-21-2023 15:27-0400 Heart rate 82 /min Marco A Valdivia DO Work Phone: [employer] 04-21-2023 15:27-0400 SaO2% (BldA) [Mass fraction] 99 % Marco A Valdivia DO Work Phone: [employer] 04-21-2023 15:27-0400 Systolic blood pressure 117 mm[Hg] Marco A Valdivia DO Work Phone: [employer] 02-18-2023 10:05-0400 Body height 157.5 cm Elizabeth Allen MD Work Phone: [employer] 02-18-2023 10:05-0400 Body mass index (BMI) [Ratio] 24.87 kg/m2 Elizabeth Allen MD Work Phone: [employer] 02-18-2023 10:05-0400 Body weight 61.69 kg Elizabeth Allen MD Work Phone: [facility] [employer] 02-18-2023 10:05-0400 Diastolic blood pressure 91 mm[Hg] Elizabeth Allen MD Work Phone: [facility] [employer] 02-18-2023 10:05-0400 Heart rate 76 /min Elizabeth Allen MD Work Phone: [facility] [employer] 02-18-2023 10:05-0400 Systolic blood pressure 133 mm[Hg] Elizabeth Allen MD Work Phone: [facility] [employer] 12-01-2022 10:13-0400 Body height 157.5 cm Marco A Valdivia DO Work Phone: [facility] [employer] 12-01-2022 10:13-0400 Body mass index (BMI) [Ratio] 24.51 kg/m2 Marco A Avelara DO Work Phone: [facility] [employer] 12-01-2022 10:13-0400 Body temperature 97.81 [degF] Marco A Valdivia DO Work Phone: [facility] [employer] 12-01-2022 10:13-0400 Body weight 60.78 kg Marco A Valdivia DO Work Phone: [facility] [employer] 12-01-2022 10:13-0400 Diastolic blood pressure 79 mm[Hg] Marco A Valdivia DO Work Phone: [facility] [employer] 12-01-2022 10:13-0400 Heart rate 113 /min Marco A Valdivia DO Work Phone: [facility] [employer] 12-01-2022 10:13-0400 SaO2% (BldA) [Mass fraction] 97 % Marco A Avelara DO Work Phone: [facility] [employer] 12-01-2022 10:13-0400 Systolic blood pressure 114 mm[Hg] Marco A Avelara DO Work Phone: [facility] [employer] 12-24-2021 12:00-0400 Diastolic blood pressure 75 mm[Hg] Steven Martinez DO Work Phone: [facility] 12-24-2021 12:00-0400 Heart rate 61 /min Steven Martinez DO Work Phone: [facility] 12-24-2021 12:00-0400 Respiratory rate 16 /min Steven Martinez DO Work Phone: [facility] 12-24-2021 12:00-0400 SaO2% (BldA) [Mass fraction] 100 % Steven Martinez DO Work Phone: [facility] 12-24-2021 12:00-0400 Systolic blood pressure 110 mm[Hg] Steven Martinez DO Work Phone: [facility] 12-24-2021 11:30-0400 Body temperature 97.7 [degF] Steven Martinez DO Work Phone: [facility] 12-24-2021 07:05-0400 Body height 157.5 cm Steven Martinez DO Work Phone: [facility] 12-24-2021 07:05-0400 Body mass index (BMI) [Ratio] 24.69 kg/m2 Steven Martinez DO Work Phone: [facility] 12-24-2021 07:05-0400 Body weight 61.24 kg Steven Martinez DO Work Phone: [facility] 12-17-2021 11:56-0400 Body temperature 97.5 [degF] Steven Martinez DO Work Phone: [facility] 12-17-2021 11:56-0400 Diastolic blood pressure 75 mm[Hg] Steven Martinez DO Work Phone: [facility] 12-17-2021 11:56-0400 Heart rate 85 /min Steven Martinez DO Work Phone: [facility] 12-17-2021 11:56-0400 Respiratory rate 18 /min Steven Martinez DO Work Phone: [facility] 12-17-2021 11:56-0400 SaO2% (BldA) [Mass fraction] 97 % Steven Martinez DO Work Phone: [facility] 12-17-2021 11:56-0400 Systolic blood pressure 114 mm[Hg] Steven Walkeralil DO Work Phone: [facility] 12-17-2021 11:56-0400 Body height 157.5 cm Steven Walkeralil DO Work Phone: [facility] 12-17-2021 11:56-0400 Body mass index (BMI) [Ratio] 24.76 kg/m2 Steven Walkeralil DO Work Phone: [facility] 12-17-2021 11:56-0400 Body weight 61.42 kg Steven Walkeralil DO Work Phone: [facility] 12-13-2021 10:57-0400 Body temperature 98.49 [degF] Cali Sy MD Work Phone: [facility] 12-13-2021 10:57-0400 Diastolic blood pressure 53 mm[Hg] Cali Sy MD Work Phone: [facility] 12-13-2021 10:57-0400 Heart rate 82 /min Cali Sy MD Work Phone: [facility] 12-13-2021 10:57-0400 Respiratory rate 18 /min Cali Sy MD Work Phone: [facility] 12-13-2021 10:57-0400 SaO2% (BldA) [Mass fraction] 95 % Cali Sy MD Work Phone: [facility] 12-13-2021 10:57-0400 Systolic blood pressure 104 mm[Hg] Cali Sy MD Work Phone: [facility] 12-13-2021 06:05-0400 Body height 157.5 cm Cali Sy MD Work Phone: [facility] 12-13-2021 06:05-0400 Body mass index (BMI) [Ratio] 22.86 kg/m2 Cali Sy MD Work Phone: [facility] 12-13-2021 06:05-0400 Body weight 56.7 kg Cali Sy MD Work Phone: [facility] 11-14-2021 20:11-0400 Body height 157.5 cm Josh Hicks MD Work Phone: [facility] 11-14-2021 20:11-0400 Body mass index (BMI) [Ratio] 22.86 kg/m2 Josh Hicks MD Work Phone: [facility] 11-14-2021 20:11-0400 Body temperature 99.3 [degF] Josh Hicks MD Work Phone: [facility] 11-14-2021 20:11-0400 Body weight 56.7 kg Josh Hicks MD Work Phone: [facility] 11-14-2021 20:11-0400 Diastolic blood pressure 96 mm[Hg] Josh Hicks MD Work Phone: [facility] 11-14-2021 20:11-0400 Heart rate 96 /min Josh Hicks MD Work Phone: [facility] 11-14-2021 20:11-0400 Respiratory rate 16 /min Josh Hicks MD Work Phone: [facility] 11-14-2021 20:11-0400 SaO2% (BldA) [Mass fraction] 100 % Josh Hicks MD Work Phone: [facility] 11-14-2021 20:11-0400 Systolic blood pressure 140 mm[Hg] Josh Hicks MD Work Phone: [facility] 04-13-2021 18:39-0400 Body height 157.5 cm Josh Hicks MD Work Phone: [facility] Work Phone: 04-13-2021 18:39-0400 Body mass index (BMI) [Ratio] 23.23 kg/m2 Josh Hicks MD [facility] Work Phone: 04-13-2021 18:39-0400 Body temperature [...] 133 mm[Hg] Josh Hicks MD Work Phone: [email or web address] Work Phone: 02-29-2020 01:48-0400 BMI (Body Mass Index) 21.58 kg/m2 [facility] [place] [place] 02-29-2020 01:48-0400 Body Temperature 97.81 [degF] [facility] [place] 02-29-2020 01:48-0400 Body weight 53.52 kg [facility] , [place] 02-29-2020 01:48-0400 BP Diastolic 80 mm[Hg] [facility] , [place] 02-29-2020 01:48-0400 BP Systolic 123 mm[Hg] [facility] , [place] 02-29-2020 01:48-0400 Height 157.5 cm [facility] , [place] 02-29-2020 01:48-0400 Pulse (Heart Rate) 82 /min Marco A Valdivia [facility] 02-29-2020 01:48-0400 Pulse Oximetry 99 % Marco A [facility] [place] , [place] 02-29-2020 01:48-0400 Respiratory Rate 16 /min [facility] [place] 02-28-2020 11:00-0400 BP Diastolic 90 mm[Hg] [facility] [place] 02-28-2020 11:00-0400 BP Systolic 139 mm[Hg] Steven Martinez [facility] [place] , [place] 02-28-2020 11:00-0400 Pulse (Heart Rate) 66 /min [facility] [place] [place] 02-28-2020 11:00-0400 Pulse Oximetry 100 % [facility] [place] 02-28-2020 11:00-0400 Respiratory Rate 14 /min [facility] [place] 02-28-2020 08:59-0400 Body Temperature 97.2 [degF] [facility] [place] 02-28-2020 07:40-0400 BMI (Body Mass Index) 21.58 kg/m2 Steven Saavedra [place] 02-28-2020 07:40-0400 Body weight 53.52 kg [facility] [place] 02-28-2020 07:40-0400 Height 157.5 cm [facility] [place] 02-26-2020 13:38-0400 BMI (Body Mass Index) 21.58 kg/m2 Steven Saavedra [place] 02-26-2020 13:38-0400 Body Temperature 99.5 [degF] [facility] [place] 02-26-2020 13:38-0400 Body weight 53.52 kg [facility] [place] , [place] 02-26-2020 13:38-0400 BP Diastolic 81 mm[Hg] Steven Martinez [facility] [place] , [place] 02-26-2020 13:38-0400 BP Systolic 120 mm[Hg] [facility] [place] 02-26-2020 13:38-0400 Height 157.5 cm [facility] [place] 02-26-2020 13:38-0400 Pulse (Heart Rate) 104 /min [facility] [place] 02-26-2020 13:38-0400 Pulse Oximetry 97 % [facility] [place] 02-10-2020 23:13-0400 Body Temperature 99.81 [degF] [facility] [place] 02-10-2020 23:13-0400 BP Diastolic 86 mm[Hg] Prem [facility] [place] , [place] 02-10-2020 23:13-0400 BP Systolic 133 mm[Hg] Prem Teran [facility] [place] , [place] 02-10-2020 23:13-0400 Pulse (Heart Rate) 79 /min [facility] [place] [place] 02-10-2020 23:13-0400 Pulse Oximetry 97 % [facility] [place] , [place] 02-10-2020 23:13-0400 BMI (Body Mass Index) 21.95 kg/m2 Prem Saavedra [place] [place] 02-10-2020 23:13-0400 Body weight 54.43 kg Prem Teran [facility] [place] , [place] 02-10-2020 23:13-0400 Height 157.5 cm [facility] [place] [facility] [place] 02-10-2020 23:13-0400 Respiratory Rate 16 /min [facility] [place] 11-01-2019 13:15-0500 BP Diastolic 68 mm[Hg] Steven Martinez [facility] [place] , 11-01-2019 13:15-0500 BP Systolic 112 mm[Hg] [facility] [place] , 11-01-2019 13:15-0500 Pulse (Heart Rate) 72 /min [facility] [place] 11-01-2019 13:15-0500 Pulse Oximetry 100 % [facility] [place] [facility] [place] 11-01-2019 13:15-0500 Respiratory Rate 16 /min Steven Saavedra [facility], [place] 11-01-2019 12:31-0500 Body Temperature 97.5 [degF] Steven Saavedra [facility], [place] 11-01-2019 11:01-0500 BMI (Body Mass Index) 22.86 kg/m2 Steven Saavedra [facility], [place] 11-01-2019 11:01-0500 Body weight 56.7 kg [facility] [place] 11-01-2019 11:01-0500 Height 157.5 cm [facility] [place] [place] 08-25-2019 17:40-0500 Diastolic blood pressure 71 mm[Hg] Armando Hernandez MD [facility] Work Phone: 08-25-2019 17:40-0500 Heart rate 90 /min Armando Hernandez MD [facility] Phone: [facility] Work Phone: 08-25-2019 17:40-0500 Respiratory rate 14 /min Armando eHrnandez MD Work Phone: [facility] Work Phone: 08-25-2019 [...] 54.43 kg Armando Hernandez MD Work Phone: [facility] Work Phone: 08-25-2019 15:44-0500 SaO2% (BldA) [Mass fraction] 100 % Armando Hernandez MD Work Phone: [email or web address] Work Phone: 07-06-2019 10:59-0500 Body Temperature 98.1 [degF] [facility] [place] 07-06-2019 10:59-0500 BP Diastolic 96 mm[Hg] [facility] [place] 07-06-2019 10:59-0500 BP Systolic 141 mm[Hg] [facility] [place] 07-06-2019 10:59-0500 Pulse (Heart Rate) 93 /min [facility] [place] 07-06-2019 10:59-0500 Pulse Oximetry 100 % [facility] [place] 07-06-2019 10:59-0500 Respiratory Rate 14 /min [place], [place] Encounters Encounter Date Encounter Type Care Provider Facility Start: 09-13-2023 Telephone encounter Marco A stanton [employer] Work Phone: [facility] Family Medicine Procedures Date Procedure Procedure [...] Radex hand minimum 3 views Tequila Rene [employer] Work Phone: Start: 12-13-2021 Assay of ethanol Tequila Rene [employer] Work Phone: Start: 12-13-2021 Basic metabolic pane l calcium total Tequila Rene [employer] Work Phone: Start: 12-13-2021 Drug screen class list a Teuqila Rene [employer] 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 - 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 Work Phone: Start: 12-13-2021 Hepatic function panel Tequila Rene [employer] Work Phone: Start: 12-13-2021 POCT COVID-19, ANTIGEN Tequila Rene [employer] ETCHER - FREEZER OPERATOR Work Phone: Start: 12-13-2021 End: 12-13-2021 Urnls dip stick/tablet rgnt auto w/o microscopy Tequila Rene [employer] ETCHER - FREEZER OPERATOR Work Phone: Start: 12-13-2021 Radex hand minimum 3 views Tequila Rene ZINC ETCHER - FREEZER OPERATOR Work Phone: Start: 11-14-2021 Ct head/brain [...] or older (1 - 1-dose 60+ series) [facility] Start: 2050 Zoster Vaccines (1 of 2) Zoster Vaccines (1 of 2) [facility] Start: 2050 Shingles Vaccine (1 of 2) Shingles Vaccine (1 of 2) [place], [place] Start: 05-18-2031 DTaP/Tdap/Td vaccine (8 - Td or Tdap) DTaP/Tdap/Td vaccine (8 - Td or Tdap) [facility] Start: 05-18-2031 DTaP/Tdap/Td Vaccines (8 - Td or Tdap) DTaP/Tdap/Td Vaccines (8 - Td or Tdap) [facility] Start: 02-18-2026 Screening for malignant neoplasm of cervix Pap Smear [facility] Start: 10-12-2023 End: 10-12-2023 Patient encounter procedure 10/12/2023 1:00 PM EST Office Visit [facility] Cardiology [address] [place] [id number] Rei Beaulieu MD [address] [place], [place] [id number] [facility] Start: 09-16-2023 End: 09-16-2023 Patient encounter procedure 09/16/2023 10:45 AM EST Office Visit [facility] Obstetrics & Gynecology [address] [place] [address] [address] [place] [address] Joan Perez CNM [address] [place], [place] [id number] [facility] Obstetrics & Gynecology Start: 08-24-2023 End: 07-26-2025 Cardiac event monitor (30 days) Cardiac event monitor (30 days) [facility] Routine Palpitations Expected: 08/24/2023 (Approximate), Expires: 07/26/2025 [facility] Work Phone: Immunizations Immunization Date Immunization Notes Care Provider Fa [facility] 10-04-2022 rabies immune globulin Malik Valdivia DO Work Phone: [facility] 10-04-2022 rabies vaccine, for intramuscular injection Marco A Valdivia DO Work Phone: [facility] 07-01-2021 Pfizer SARS-CoV-2 Vaccination Marco A Valdivia DO Work Phone: [facility] 06-02-2021 Pfizer SARS-CoV-2 Vaccination Marco A Valdivia DO Work Phone: [facility] 05-18-2021 tetanus toxoid, redu janelle diphtheria toxoid, and acellular pertussis vaccine, adsorbed Josh Hicks MD Work Phone: [facility] 04-18-2018 meningococcal oligosaccharide (groups A, C, Y and W-135) diphtheria toxoid conjugate vaccine (MCV4O) [facility] 03-24-2013 tetanus toxoid, redu janelle diphtheria toxoid, and acellular pertussis vaccine, adsorbed [facility] 12-12-2007 varicella virus vaccine [facility], [place] 12-16-2005 diphtheria, tetanus toxoids and acellular pertussis vaccine [facility] Work Phone: 12-16-2005 measles, mumps and rubella virus vaccine [facility], [place] 12-16-2005 pneumococcal conjuga te vaccine, 7 valent Marco A Valdivia DO Work Phone: [facility] 12-16-2005 pneumococcal Conjuga te, unspecified formulation [facility] , [place] 12-16-2005 poliovirus vaccine, inactivated [facility], [place] 05-18-2002 diphtheria, tetanus toxoids and acellular pertussis vaccine [facility], [place] 05-18-2002 diphtheria, tetanus toxoids and acellular pertussis vaccine, unspecified formulation Marco A Valdivia DO Work Phone: [facility] 05-18-2002 haemophilus influenz ae type b vaccine, conjugate unspecified formulation Marco A Valdivia DO Work Phone: [facility] 05-18-2002 haemophilus influenz ae type b vaccine, HbOC conjugate Marco A Valdivia DO Work Phone: [facility] 05-18-2002 Hib, unspecified [facility], [place] 02-09-2002 measles, mumps and rubella virus vaccine [facility], [place] 02-09-2002 poliovirus vaccine, inactivated [facility], [place] 02-09-2002 varicella virus vaccine [facility], [place] 07-26-2001 diphtheria, tetanus toxoids and acellular pertussis vaccine [facility], [place] 07-26-2001 haemophilus influenz ae type b vaccine, conjugate unspecified formulation Marco A Valdivia DO Work Phone: [facility] 07-26-2001 haemophilus influenz ae type b vaccine, HbOC conjugate Marco A Valdivia DO Work Phone: [facility] 07-26-2001 hepatitis B vaccine, adult dosage Josh Hicks MD Work Phone: [facility] Work Phone: 07-26-2001 hepatitis B vaccine, pediatric or pediatric/adolescent dosage Marco A Valdivia DO Work Phone: [facility] 07-26-2001 hepatitis B vaccine, unspecified formulation [facility] , [place] 07-26-2001 Hib, unspecified [facility], [place] 07-26-2001 pneumococcal conjuga te vaccine, 7 valent Marco A Avelara DO Work Phone: [facility] 07-26-2001 pneumococcal Conjuga te, unspecified formulation [facility] , [place] 05-27-2001 diphtheria, tetanus toxoids and acellular pertussis vaccine [facility], [place] 05-27-2001 diphtheria, tetanus toxoids and acellular pertussis vaccine, unspecified formulation Marco A Valdivia DO Work Phone: [facility] 05-27-2001 haemophilus influenz ae type b vaccine, conjugate unspecified formulation Marco A Valdivia DO Work Phone: [facility] 05-27-2001 haemophilus influenz ae type b vaccine, HbOC conjugate Marco A Valdivia DO Work Phone: [facility] 05-27-2001 hepatitis B vaccine, pediatric or pediatric/adolescent dosage [facility] 05-27-2001 Hib, unspecified [facility], [place] 05-27-2001 pneumococcal conjuga te vaccine, 7 valent Marco A Worleylla DO Work Phone: [facility] 05-27-2001 pneumococcal Conjuga te, unspecified formulation [facility] , [place] 05-27-2001 poliovirus vaccine, inactivated [facility], [place] 03-08-2001 diphtheria, tetanus toxoids and acellular pertussis vaccine [facility], [place] 03-08-2001 haemophilus influenz ae type b vaccine, conjugate unspecified formulation Marco A Avelara DO Work Phone: [facility] 03-08-2001 haemophilus influenz ae type b vaccine, HbOC conjugate Marco A [facility] DO Work Phone: [facility] 03-08-2001 Hib, unspecified [facility], [place] 03-08-2001 pneumococcal conjuga te vaccine, 7 valent Marco A Avelara DO Work Phone: [facility] 03-08-2001 pneumococcal Conjuga te, unspecified formulation [facility] , [place] 03-08-2001 poliovirus vaccine, inactivated [facility], [place] 01-14-2001 hepatitis B vaccine, adult dosage Josh Hicks MD [facility]: [facility] Work Phone: 01-14-2001 hepatitis B vaccine, pediatric or pediatric/adolescent dosage Marco A Worleylla DO Work Phone: [facility] 01-14-2001 hepatitis B vaccine, unspecified formulation [facility] , [place] 2000 hepatitis B vaccine, adult dosage Josh Hicks MD Work Phone: [facility] Work Phone: 2000 hepatitis B vaccine, pediatric or pediatric/adolescent dosage Marco A Meirlla DO Work Phone: [facility] 2000 hepatitis B vaccine, unspecified formulation [place], [place] Payers Date Payer Category Payer Medicaid [id number] 2022 Medicaid [id number] 2022 Private Health Insurance [id number] 2022 Private Health Insurance [id number] 2021 Unknown [id number] 2021 Unknown [employer] [id number] 2021-Present [address] [place] [address] Commercial [id number] 2020 Unknown [employer] [facility] MEDICAID [id number] 2020-Present [phone] CLAIMS DEPARTMENT [address] [place] [address] [id number] 2015 Unknown BCBS [place] - [place] P PO xxxxxxxxxxxx 2015-Present [address] [place] [address] xxxxxxxxxxxx [id number] 2000 Unknown [id number] Social History Date Type Detail Facility Start: 06-14-2019 End: 07-06-2019 Tobacco [facility] status NHIS [facility] Start: 06-14-2019 End: 08-20-2023 [facility] Start: 03-28-2019 End: 10-04-2022 History SDOH Alcohol Frequency 1 [facility] ANTONIETA BEEBE Start: 03-28-2019 End: 02-19-2021 History SDOH Social Connections Phone 5 [facility] ANTONIETA BEEBE Start: 03-28-2019 End: 10-04-2022 History SDOH Social Connections Membership 2 [place], [place] Start: 03-28-2019 History SDOH Social Connections Living 7 [place], [place] Start: 03-28-2019 History SDOH Physica l Activity MPS 6 [place] Start: 03-28-2019 History SDOH Financial 4 [place], [place] Start: 2000 Sex Assigned At Not on file M [place], [place] Start: 11-01-2019 End: 08-20-2023 Alcohol intake Current non-drinker of alcohol (finding) [facility] Work Phone: Start: 02-26-2020 End: 12-17-2021 Tobacco smoking status NHIS Current [facility] Start: 02-26-2020 End: 08-20-2023 Cigarettes smoked current (pack per day) - Reported [place] Exposure to SARS-CoV -2 (event) Unable to assess [place] History of tobacco use [facility] Start: 12-18-2020 End: 12-17-2021 Tobacco use and exposure Never used [facility] Start: 11-04-2021 End: 04-21-2023 Exposure to SARS-CoV-2 (event) Not sure [facility] Start: 11-14-2021 Tobacco smoking stat us MEIS Ex-smoker [facility] How often to you hav e a drink containing alcohol? Monthly or less [facility] How many standard dr inks containing alcohol do you have on a typical day? 1 or 2 [facility] How often do you hav e 6 or more drinks on 1 occasion? Never [facility] Health Goals Date Patient Goal Desired Activity /State Clinical Notes 08-25-2019 to 09-13-2023 Telephone Encounter - Madeleine Galindo - 09/13/2023 9:14 AM ESTTelephone Encounter - Madeleine Galindo - 09/13/2023 9:14 AM ESTTelephone Encounter - Madeleine Galindo - 09/13/2023 9:13 AM ESTPatient Instructions Note Date & Type Note Facility 09-13-2023 Telephone encounter Note Orders pended for doctor signature [facility] 09-13-2023 Miscellaneous Notes Orders pended for doctor signature ----- Message from Amelie Salazar MA sent at 09/13/2023 8:59 AM EST ----- Placed call to patient. Two patient identifers confirmed. Was able to speak to patient. All concerns in message have been addressed. No questions at this time. Call ended Pt consents to referral. documented in this encounter [facility] 09-13-2023 Telephone encounter Note ----- Message from Amelie Salazar MA sent at 09/13/2023 8:59 AM EST ----- Placed call to patient. Two patient identifers confirmed. Was able to speak to patient. All concerns in message have been addressed. No questions at this time. Call ended Pt consents to referral. [facility] 08-27-2023 Note Addended by: QIAN RECIO on: 08/27/2023 08:16 AM Modules accepted: Orders [facility] 08-24-2023 Telephone encounter Note Sending to Dr. Valdivia for signing off of order [facility] 08-24-2023 Miscellaneous Notes Sending to Dr. Valdivia for signing off of order Patient was given central scheduling number was told to call and schedule in a few days to make sure order was signed. Orders pended for dx and doctor's signature Yes, pt can contact [facility] at [phone] to sched once orders are in. Message [...] before cardiology consultation documented in this encounter [facility] 07-26-2023 Telephone encounter Note Orders pended for dx and doctor's signature [facility] 07-26-2023 Miscellaneous Notes Orders pended for dx and doctor's signature ----- Message from Marco A Valdivia DO sent at 07/25/2023 5:41 PM EST ----- As expected abnormal. Post 30-day event monitor for patient. We will await results before cardiology consultation documented in this encounter [facility] 07-26-2023 Miscellaneous Notes Orders pended for dx and doctor's signature ----- Message from Marco A Valdivia DO sent at 07/25/2023 5:41 PM EST ----- As expected abnormal. Post 30-day event monitor for patient. We will await results before cardiology consultation documented in this encounter [facility] 07-26-2023 Telephone encounter Note ----- Message from Marco A Valdivia DO sent at 07/25/2023 5:41 PM EST ----- As expected abnormal. Post 30-day event monitor for patient. We will await results before cardiology consultation [facility] 07-26-2023 Telephone encounter Note Patient was given central scheduling number was told to call and schedule in a few days to make sure order was signed. [facility] 07-26-2023 Telephone encounter Note Orders pended for dx and doctor's signature [facility] 07-26-2023 Telephone encounter Note Yes, pt can contact [facility] atv [phone] to sched once orders are in. [facility] 07-26-2023 Telephone encounter Note Message released [...] relayed to the patient from encounter: Yes [facility] 07-26-2023 Telephone encounter Note Placed call to patient. Unable to reach them by phone to discuss lab results. Left detailed message to return call to discuss results. Please release information to patient [facility] 07-26-2023 Telephone encounter Note ----- Message from Clarissa Mittal MA sent at 07/26/2023 7:40 AM EST ----- ----- Message ----- From: Marco A Valdivia DO Sent: 07/25/2023 5:41 PM EST To: Qian Galindo; # As expected abnormal. Post 30-day event monitor for patient. We will await results before cardiology consultation [facility] 07-19-2023 History of Present illness Narrative Images from the original note were not included. [facility] [address] [facility] [address] Visit type: Established Patient Reason for [...] Active Problem List Diagnosis Uses oral contraception [place]-Schlatter's disease Detached retina, right Social History Tobacco [...] without acute changes documented in this encounter [facility] 04-21-2023 History of Present illness Narrative Images from the original note were not included. [facility] [address] [place] [id number] Visit type: Established Patient Reason for Visit: [...] weeks ago. Will be following up with [facility] [employer] [facility]. Denies possibility of being Allergies Allergen Reactions [...] kg/m Physical Exam pleasant cooperative. Jessica PND. [place] oropharynx. No neck masses JVD adenopathy. Normal eardrums and sinus evaluation. Heart is rate without gallops or murmurs. Lungs a few upper rhonchi but no rales wheezes or egophony. Abdomen soft scaphoid without pain hepatosplenomegaly or masses. No adenopathy. Extremities are pink without edema documented in this encounter [facility] 02-18-2023 History of Present illness Narrative [...] with mother and younger brother. 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 Vaping . 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 Message left on voicemail to return call. Also a letter was mailed to last known address. [facility] 01-28-2023 Miscellaneous Notes Placed call to [...] smear. Rx loaded documented in this encounter [facility] 01-26-2023 Telephone encounter Note Placed call to patient to discuss provider direction. Message left on voicemail to return call. Also a My Chart message was sent. [facility] 01-26-2023 Miscellaneous Notes Placed call to [...] smear. Rx loaded documented in this encounter [facility] 01-21-2023 Telephone encounter Note Patient was left a detailed message to call and schedule her pap smear. [facility] 01-21-2023 Telephone encounter Note L/M for patient to call and schedule a female exam [facility] 01-20-2023 Telephone encounter Note Prescription completed but she is due for Pap smear. [facility] 01-20-2023 Telephone encounter Note Rx loaded [facility] 12-01-2022 History of Present illness Narrative Images from the original note were not included. [facility] [address] [place] [id number] Visit type: Established Patient Reason for Visit: [...] menses are normal on control pills. Defers [employer] [facility] exam today. Had ultrasound of gallbladder 2 [...] Active Problem List Diagnosis Uses oral contraception [place]-Schlatter's disease Social History Tobacco Use Smoking status: [...] the lower quadrants or pelvis. She defers [employer] [facility] exam. documented in this encounter [facility] 12-01-2022 Instructions Marco A Valdivia DO - 12/01/2022 10:00 AM EDT Call to schedule [employer] OF MERCH[employer]ISE BUYING exam here or with warehouse person. documented in this encounter [facility] 11-25-2022 Telephone encounter Note Pt is scheduled 12/01/22 [facility] 11-25-2022 Miscellaneous Notes Pt is scheduled 12/01/22 Please assist in scheduling Refill completed, patient overdue for Pap smear. Should have been completed at age 21 Rx loaded Last ov 04/24/22 No next ov scheduled Patient out [facility] Medication name: DASETTA 0.5/0.75/1-35 MG-MCG per [...] Updated/Validated preferred pharmacy: Yes [id number] - [place], [address] [phone] Patient instructed to contact the pharmacy prior to picking up the medication: Yes documented in this encounter [facility] 11-25-2022 Telephone encounter Note Please assist in scheduling [facility] 11-24-2022 Telephone encounter Note Refill completed, patient overdue for Pap smear. Should have been completed at age 21 [facility] 11-24-2022 Telephone encounter Note Rx loaded Last ov 04/24/22 No next ov scheduled [facility] 11-24-2022 Telephone encounter Note [facility] out [facility] Medication name: LEANDRO 0.5/0.75/1-35 MG-MCG per tablet [...] 04/13/22 Updated/Validated preferred pharmacy: Yes [id number] [place] - [address] [place] [address] Patient instructed to contact the pharmacy prior to picking up the medication: Yes [facility] 10-06-2022 Note Chart reviewed of ED follow up Seen in [facility] ED on 10/04/22 Reason: Animal Bite Discharge instructions: Follow up with your PCP ED message and education sent via [employer]. [facility] 12-24-2021 History of Present illness Narrative Pt [...] in recovery visiting documented in this encounter [facility] Work Phone: 12-24-2021 Hospital Discharge instructions Steven Martinez, DO - 12/24/2021 Images from the original note were not included. [facility] ENT [facility] [address] [facility] [address] Dept: [phone] Dept Loc: [phone] POST-OP NASAL SURGERY INSTRUCTIONS Diet Resume regular [...] increase in pain documented in this encounter [facility] Phone: 12-17-2021 Hospital Discharge instructions Zainab Golden RN - 12/17/2021 Please bring your [facility] Information folder on the day of [...] best for you, please speak with your BRAND ADVISOR provider. The following attachments cannot be sent through Care Everywhere.Nasal Septum Repair Surgery: Post-op ([place] Citizen)documented in this encounter [facility] Work Phone: 12-17-2021 History of Present illness Narrative Nursing, General, and Perioperative Care Plans Initiated. documented in this encounter [facility] Work Phone: 05-02-2021 Note HNO ID: [id number] Author: Amanda Palomino PA-C Service: ? Author Type: Physician Staff Air Tactical Officer Type: Progress Notes Filed: 05/02/2021 1:03 PM [...] or treatment of novel coronavirus infection (COVID-19). [facility] 01-01-2021 Note Procedure: PORTABLE CHEST Ordering Provider: Jr Locke Order Date: 01/01/2021 3:33 PM PORTABLE CHEST Clinical Statement: Chest pain Comparison: None available FINDINGS: Cardiomediastinal silhouette is normal. No focal consolidation, pleural effusion, vascular congestion or pneumothorax. No acute osseous abnormalities. IMPRESSION: No acute cardiopulmonary abnormalities. Dictated by [employer] Physical Education Aide: Carlos Hall DO Reviewed and Signed by: Dez Mustafa MD ---- Electronic Signature on File ---- Signed By: Dez Mustafa MD [email or web address] Dictated: 01/01/2021 4:27 PM Signed: 01/01/2021 4:45 PM Reported By: DEZ MUSTAFA M.D. Signed By: DEZ MUSTAFA M.D. [facility] 08-25-2019 Hospital Discharge instructions Armando Hernandez MD - 08/25/2019 Stopthe antibiotic as yor urine is clean. Your lab data are normal. 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- Primary Screening for cervical cancer Screening for malignant neoplasm of the cervix Dyspareunia in female Screen for STD (sexually transmitted disease) Screening examination for venereal disease Encounter for initial prescription of contraceptive pills [facility]* Diagnosis Sinobronchitis- Primary Detached retina, right Unspecified retinal detachment documented in this encounter [facility]* Diagnosis Palpitations- Primary Polyuria documented in this encounter [facility]* Diagnosis Palpitations- Primary documented in this encounter [facility]* Diagnosis Palpitations documented [facility]* Diagnosis Palpitations- Primary documented in this encounter [facility]* Diagnosis Palpitations- Primary documented in this encounter [facility]* Diagnosis Palpitations [facility]* Attachments The following attachments cannot be sent through Care Everywhere. * Sore Throat ([place] Citizen) [facility] Hospital Discharge instructions* Attachments The following attachments cannot be sent through Care Everywhere. * Contusion: Nasal ([place] Citizen) [facility] Hospital Discharge instructions* Instructions* Love Reneh Lisa, ZINC ETCHER - FREEZER OPERATOR - 12/13/2021 Please make your follow-up appointment with [facility]. They will be able to prescribe medications [...] through Care Everywhere. * Alcohol Intoxication: Acute ([place] Citizen) * Depression: Chronic Disease ([place] Citizen) [facility]: Reason for referral (narrative)* Consultation (Routine) - Authorized Specialty Diagnoses / Procedures Referred By Refugio [email or web address] Referred To Contact Cardiology Diagnoses Palpitations Procedures [place] OFFICE/OUTPATIENT NEW HIGH MDM 60 MINUTES Marco A Valdivia DO [address] [place] [address] [facility] Card [address] [place] [address] Referral ID Status Reason Start Date Expiration Date Visits Requested Visits Authorized [id number] Authorized Specialty Services Required 09/13/2023 09/12/2024 1 1 [facility] Health Assessments Diagnosis Right hip pain Pain [...] FoundDocuments on File Type Date Recorded Patient Director Of Public Health Expl anation Advance Directives and Living Will Power of Freight Car Repairer Latest Code Status on File Code Status [...] Documents on File Type Date Recorded Patient Director Of Public Health Expl anation Advance Directives and Living Will Power of Freight Car Repairer Documents on File Type Date Recorded Patient Director Of Public Health Expl anation ACP-Advance Directive ACP-Power of Freight Car Repairer Latest Code Status on File Code Status Date Activated Date Inactivated Comments Full Code 02/28/2020 7:28 AM 02/28/2020 1:48 PM Full Code 11/01/2019 10:52 AM 11/01/2019 6:09 PM Documents on File Type Date Recorded Patient Director Of Public Health Expl anation ACP-Advance Directive ACP-Power of Freight Car Repairer Latest Code Status on File Code Status Date Activated Date Inactivated Comments Full Code 12/24/2021 7:02 AM Full Code 02/28/2020 7:28 AM 02/28/2020 1:48 PM Discharge Instructions * Instructions* Lon Saldaña RN - 11/01/2019 [facility] [address] [facility] [address] Dept: [phone] Dept Loc: [phone] POST-OP NASAL SURGERY INSTRUCTIONS Diet ? Resume [...] as Dial or Safeguard. Please bring your [facility] Surgical Information folder on the day [...] best for you, please speak with your BRAND ADVISOR provider. NO smoking or vaping 24 hours [...] encounter* Instructions* Steven Martinez DO - 02/28/2020 [facility] ENT [facility] [address] [place] [address] Dept: [phone] Dept Loc: [phone] POST-OP NASAL SURGERY INSTRUCTIONS Diet ? Resume [...] documented in this encounter* Instructions* Rebecca Durham, ZINC ETCHER - FREEZER OPERATOR - 02/29/2020 Please call your ENT [...] through Care Everywhere. * Pain Post-Surgery: Acute ([place] Citizen) documented in this encounter* Attachments The following attachments cannot be sent through Care Everywhere. * Cervical: Exercises ([place] Citizen) documented in this encounter* Instructions* Prem Teran MD - 02/11/2020 Use acetaminophen, 650 mg, every 6 hours as needed for pain relief. * Attachments The following attachments cannot be sent through Care Everywhere. * Head Injury: Closed: General Info ([place] Citizen) * Acute Concussion ([place] Citizen) documented in this encounter History of Present [...] JT WO CONTRAST Marco A Valdivia, DO [place] [address] Status Reason Specialty Diagnoses / Procedures Referre d By Contact Referred To Contact [facility] Diagnoses Tachycardia, unspecified Procedures Cardiac event monitor Ethel Sahu, ZINC ETCHER - BAND PRESSER [address] [place] [address] [place] [address] Status Reason Specialty Diagnoses / Procedures Referre d By Contact Referred To Contact [facility] Diagnoses RUQ abdominal pain Procedures US ABDOMEN LIMITED Marco A Valdivia, DO [address] [place] [address] Specialty Diagnoses / Procedures Referred By Contac t Referred To Contact Behavioral Health Diagnoses History of depression Tequila Rene, ZINC ETCHER - FREEZER OPERATOR [address] [place] [address] [facility] [address] [place] [address] Referral ID Status Reason Start Date Expiration Date V isits Requested Visits Authorized [id number] Open Specialty Services Required 12/13/2021 06/11/2022 1 1 Scheduling Instructions [facility] [address] [place] [address] Specialty Diagnoses / Procedures Referred By Contac t Referred To Contact Cardiology Diagnoses Palpitations Procedures Cardiac event monitor (30 days) VT XTRNL ECG & 48 HR RECORDING VT EXTERNAL ECG SCANNING ANALYSIS REPORT VT XTRNL ECG CONTINUOUS RHYTHM W/I&R UP TO 48 HRS VT XTRNL MOBILE CV TELEMETRY W/I&REPORT 30 DAYS [place] XTRNL MOBILE CV TELEMETRY W/TECHNICAL SUPPORT Marco A Valdivia, DO [address] [place] [address] Referral ID Status Reason Start Date Expiration Date V isits Requested Visits Authorized [id number] Authorized 07/26/2023 01/22/2024 1 1 Referral ID Status Reason Start Date Expiration Date Visits Re quested Visits Authorized [id number] Closed 07/26/2023 01/22/2024 1 1 Referral ID Status Reason Start Date Expiration Date V isits Requested Visits Authorized [id number] Pending Review 08/24/2023 08/18/2024 1 1 Referral ID Status Reason Start Date Expiration Date V isits Requested Visits Authorized [id number] Authorized 08/24/2023 08/18/2024 1 1 Summary Purpose [...] Palpitations Procedures Cardiac event monitor (30 days) VT XTRNL ECG & 48 HR RECORDING VT EXTERNAL ECG SCANNING ANALYSIS REPORT VT XTRNL ECG CONTINUOUS RHYTHM W/I&R UP TO 48 HRS VT XTRNL MOBILE CV TELEMETRY W/I&REPORT 30 DAYS [place] XTRNL MOBILE CV TELEMETRY W/TECHNICAL SUPPORT Marco A Valdivia F, DO [address] [place] [address] Referral ID Status Reason Start Date Expiration Date Visits Re quested Visits Authorized [id number] Closed 07/26/2023 01/22/2024 1 1 Reason Onset [...] mL IVPB (premix) (COMPLETED) 2,000 mg, IntraVENous, CATERING ATTENDANT TO O.R., 1 dose, On Wed12/24/21 at [...] DATE CREATED AUTHOR AUTHOR'S ORGANIZ ATION 10/19/2021 [facility] trish Gregorio DATE CREATED AUTHOR AUTHOR'S ORGANIZ ATION 11/20/2021 [facility] DATE CREATED AUTHOR AUTHOR'S ORGANIZ ATION 02/13/2022 [facility] DATE CREATED AUTHOR AUTHOR'S ORGANIZ ATION 11/18/2022 [facility] DATE CREATED AUTHOR AUTHOR'S ORGANIZ ATION 09/13/2023 [facility] Care Teams (unrecognized sec tion and content) Retail Salesperson Relationship Specialty Start Date End Date Marco A Valdivia DO [address] [place] [facility] [place] [address] PCP - General Family Medicine 03/25/15 Retail Salesperson Relationship Specialty Start Date End Date Marco A Valdivia, DO [address] [place] [address] PCP - General Family Medicine 03/25/15 Retail Salesperson Relationship Specialty Start Date End Date Marco A Valdivia, DO [address] [place] [address] PCP - General Family Medicine 03/25/15 Retail Salesperson Relationship Specialty Start Date End Date Marco A Valdivia, DO [address] [place] [address] PCP - General 03/25/15 Retail Salesperson Relationship Specialty Start Date End Date Marco A Valdivia, DO [address] [place] [address] PCP - General 03/25/15 Retail Salesperson Relationship Specialty Start Date End Date Marco A Valdivia, DO [address] [place] [address] PCP - General 03/25/15 Retail Salesperson Relationship Specialty Start Date End Date Marco A Valdivia, DO [address] [place] [address] PCP - General 03/25/15 Retail Salesperson Relationship Specialty Start Date End Date Marco A Valdivia, DO [address] [place] [address] PCP - General 03/25/15 Retail Salesperson Relationship Specialty Start Date End Date Marco A Valdivia, DO [address] [place] [address] PCP - General 03/25/15 Retail Salesperson Relationship Specialty Start Date End Date Marco A Valdivia DO [address] [place] [address] PCP - General 03/25/15 Retail Salesperson Relationship Specialty Start Date End Date Marco A Valdivia DO [address] [place] [address] PCP General 03/25/15 Retail Salesperson Relationship Specialty Start Date End Date Marco A Valdivia DO [address] [place] [address] PCP General 03/25/15 Retail Salesperson Relationship Specialty Start Date End Date Marco A Valdivia DO [address] [place] [address] PCP General 03/25/15 Retail Salesperson Relationship Specialty Start Date End Date Marco A Valdivia DO [address] [place] [address] [facility] General 03/25/15 FOR RECORDS PERTAINING TO PATIENTS [...] BE BASED ON THE PRIMARY CLINICAL RECORDS. [facility] [employer] [facility]. provides no warranty or guarantee of the accuracy or completeness of information in this document.
[2023-10-08 05:08] LABS: Chlamydia By Nucleic Acid AMP Negative (Negative); Gonococcus By Nucleic Acid AMP Negative (Negative)
== END | disposition home or self-care (01) ==
LOC: LABSPEC 13:18
PROVIDERS: PCP Family Medicine; Referring Provider Obstetrics & Gynecology; Visit Provider Obstetrics & Gynecology
DX: Z34.90 Encounter for supervision of normal pregnancy, unspecified, unspecified trimester (principal); Z3A.00 Weeks of gestation of pregnancy not specified
CPT/HCPCS: 87086; 87491; 87591

== ENCOUNTER → 2023-10-12 | Outpatient (CLI) | payer OTHER, SELFPAY ==
[2023-10-12 11:08] LABS: Absolute Lymphocyte Count 1.89 X10^3/uL (0.83-4.51); Absolute Neutrophil Count 6.6 X10^3/uL (2.0-7.7); Basophil# 0.04 X10^3/uL; Basophil% 0.4 % (0-1); Eosinophil# 0.21 X10^3/uL; Eosinophils% 2.2 % (0-5); Hematocrit 37.4 % (37-47); Hemoglobin 12.8 g/dL (12.0-15.0); Lymphocyte # 1.89 X10^3/ul (0.83-4.51); Lymphocyte % 20.1 % (19-41); Mean Corp Hgb Conc 34.2 g/dL (32-36); Mean Corpuscular Hgb 29.2 pg (27.0-32.0); Mean Corpuscular Volume 85.2 fL (81-99); Mean Platelet Vol. 10.4 fl (6.2-12.0); Monocyte# 0.69 X10^3/uL; Monocyte% 7.3 % (0-10); NRBC Flagged by Analyzer 0 % (0-5); Neutrophil # 6.56 X10^3/uL (2.7-7.7); Neutrophil % 69.7 % (47-70); Platelet Count 217 K/mm3 (150-450); RBC Distribution Width CV 13.4 % (11.6-14.6); RBC Distribution Width SD 41.7 fl (35.1-43.9); Red Blood Count 4.39 M/mm3 (4.2-5.4); White Blood Count 9.4 K/mm3 (4.4-11.0)
[2023-10-12 12:27] LABS: HIV - WCH Non-Reactive (Nonreactive); Hepatitis B Surface Antigen Non-Reactive (Nonreactive); Hepatitis C Antibody Non-Reactive (Nonreactive); Rubella IgG Reactive (Nonreactive); Syphilis Antibodies Non-reactive
== END | disposition home or self-care (01) ==
PROVIDERS: PCP Family Medicine; Referring Provider Obstetrics & Gynecology; Visit Provider Obstetrics & Gynecology
DX: Z34.81 Encounter for supervision of other normal pregnancy, first trimester (principal); Z31.430 Encounter of female for testing for genetic disease carrier status for procreative management; Z3A.00 Weeks of gestation of pregnancy not specified
CPT/HCPCS: 36415; 85025; 86703; 86762; 86780; 86803; 86850; 86900; 86901; 87340

== ENCOUNTER 2023-11-23 20:37 | Emergency (ER) | payer OTHER, SELFPAY ==
[2023-11-23 20:39] VITALS: BP 124/79; PULSE 95; RESP 18; TEMP 36.6; O2SAT 98; BMI 27.5
--- NOTE | 2023-11-23 20:47 | EX.ED.DYSGE1 ---
HPI History of Present Illness Chief Complaint: Abd Pain Informant: patient Onset/Context/Timing Onset: Today Context: Sudden Onset Timing: Continuous Quality: Cramping Location: Right lower abdomen Worsened by: Nothing Relieved by: Nothing Narrative Narrative: Patient presents with right lower abdominal cramping that began today. Patient states she is approximately 16 weeks . Patient states she fell forward. Patient states that since she fell, she has been noticing some increasing cramping in her right lower abdomen. Patient states nothing makes it worse and nothing makes it better. Patient denies any leakage of fluids. Patient denies any vaginal bleeding or discharge. Patient denies any nausea or vomiting. Patient denies any fevers or chills. PFSH PFS Medical History Endometriosis History of nicotine vaping Hx of supraventricular tachycardia Seasonal allergies Home Medications PNV 153-FA 400 mcg-om3 35 mg-dha 25 mg-epa 5 mg-fish oil chew tablet tab PO 10/01/23 [History Last Taken Unknown] Allergy/AdvReac Type Severity Reaction Status Date / Time lidocaine Allergy Rash Verified 11/23/23 20:39 Family History Grandmother Asthma maternal Uncle Asthma maternal Surgical History H/O eye surgery H/O nasal septoplasty H/O rhinoplasty [place] teeth extracted Social History adopted: No household members: significant other current occupational status: employed current occupation: [employer] current occupational exposures/hazards: No pets and animals: No history of recent travel: No Smoking Status: Former smoker quit date: 09/17/23 Electronic Cigarette Use: with nicotine alcohol intake: current alcohol intake frequency: holidays/special occasions only details: not while substance use type: does not use well-balanced diet: daily or most days caffeine: No eating out: 1-3 times/week during the past year weight has: remained stable what type of physical activity do you participate in: none marcin/hinduism: None seatbelt use: always do you feel safe at home: Yes 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 ROS ROS ED Constitutional Constitutional ED: Denies chills or fever(s) Eyes Eyes: Denies blurry vision or change in vision ENT ENT ED: Denies rhinorrhea or sore throat Cardiovascular Cardiovascular: Denies chest pain or palpitations Respiratory/Chest Respiratory/Chest: Denies cough or dyspnea Gastrointestinal Gastrointestinal: Reports abdominal pain; Denies nausea or vomiting Genitourinary Genitourinary ED: Denies dysuria or hematuria Musculoskeletal Musculoskeletal: Denies back pain or neck pain Integumentary Denies abscess or rash Neurologic Neurologic: Denies headache(s) or weakness Allergic/Immunologic Allergic/Immunologic ED: Denies mouth swelling or urticaria EXAM Physical Exam Const Vital Signs: 11/23/23 20:39 11/23/23 21:05 Temperature 97.8 F Temperature Source Temporal Pulse Rate 95 Respiratory Rate 18 Respiratory Effort Normal Non-Labored Respiratory Depth Normal Respiratory Pattern Normal Blood Pressure 124/79 H Blood Pressure Mean 94 Pulse Ox 98 Oxygen Delivery Method Room Air Room Air Positive well nourished and well developed General Appearance ED: well developed and NAD HEENT Reports moist mucous membranes Neck supple and no JVD Resp normal respiratory effort and clear to auscultation bilaterally Cardio regular rate and regular rhythm GI non-distended Palpation: soft and tender RLQ; Negative for guarding or rebound tenderness present Neuro oriented x3, CN's II-XII intact bilaterally and no sensory deficits noted Sensorium / Orientation: alert Motor Exam: strength 5/5 throughout MDM MDM MDM Narrative Medical decision making narrative: Differential diagnosis includes abdominal contusion, threatened miscarriage, and anxiety. heart tones will be obtained to assess for viability. Quantitative hCG will be obtained to assess for . Patient's blood type was reviewed and was O-positive. Lab Data Lab results narrative: [place] [id number]. Labs: Laboratory Results - last 24 hr 11/23/23 21:20 HCG, Quant [id number] H Radiography Diagnostic Testing: Clinical Impression(s) from Imaging Studies Obstetrics Ultrasound 11/23/23 21:28 IMPRESSION: Single viable IUP. No acute abnormalities are identified. Recommend detailed anatomic assessment at approximately 20 weeks gestation. Electronically Signed: Kameron Tony DO at 22:30 EDT , Pelvic ultrasound was obtained. There is a single viable intrauterine . There is no other acute abnormality noted. This was interpreted by the radiologist and was also independently reviewed by myself. Treatment and Re-Evaluation :: heart tones were obtained and were normal at 168. Patient was advised of her findings. Patient was instructed to drink plenty of fluids. Patient was instructed to follow-up with her primary care physician in 5 to 7 days. Patient was instructed to follow-up with her WAREHOUSE HELPER in 2 to 3 days. Patient understood and was agreeable with the plan. All questions were answered. Discharge Plan Triage Chief Complaint: Abd Pain Other Complaint: Fall ED Provider: Cristo Prado Dx/Rx/DC Orders Clinical Impression: Abdominal pain, , Fall Instructions: ED Abdominal Pain, Early Prescriptions: No Action PNV no.[id number] 400 mcg-35 mg- 25 mg-5 mg tablet,chewable PO Primary Care Provider: Marco A Valdivia Referrals: Marco A Valdivia DO [Primary Care Provider] - 5-7 Days Sandra Tian DO [Med Staff - Active Staff] - 3-5 Days Disposition Disposition: Home, Self Care
--- NOTE | 2023-11-23 21:28 | US_ITS ---
EXAM: US , LIMITED CLINICAL INDICATION: Fall, abdominal injury TECHNIQUE: Real-time limited ultrasound of the maternal uterus with image documentation. COMPARISON: No relevant prior studies available. FINDINGS: GESTATIONAL AGE: Estimated gestational age: 15 weeks, 6 days by size and 16 weeks, 0 days by dates. JUAN JOSE: JUAN JOSE by ultrasound: 05/10/2024. EFW: Estimated weight: 136 g +/- 20 grams (30th percentile). BPD: 2.96 cm. HC: 12.03 cm. AC: 10.31 cm. FL: 1.3 cm. POSITION: Breech presentation. HEART RATE: heart rate: 164 bpm. PLACENTA: Anterior placenta. AMNIOTIC FLUID: The amniotic fluid is subjectively normal with a maximal vertical pocket of 3.4 cm. CERVIX: The cervix is closed measuring 3 cm. US/OB Limited With Biometrics IMPRESSION: Single viable IUP. No acute abnormalities are identified. Recommend detailed anatomic assessment at approximately 20 weeks gestation. Electronically Signed: Kameron Tony DO at 22:30 EDT ,
[2023-11-23 22:01] LABS: hCG Titer Quant., Serum 18147 mIU/mL (1-3)
[2023-11-23 22:38] VITALS: BP 122/74; PULSE 76; RESP 14; O2SAT 96
[2023-11-23 22:45] VITALS: BP 122/74; PULSE 76; RESP 14; TEMP 36.5; O2SAT 96
== END 2023-11-23 22:46 | disposition home or self-care (01) ==
PROVIDERS: Emergency Provider Emergency Medicine; PCP Family Medicine; Visit Provider Emergency Medicine
DX: O26.892 Other specified pregnancy related conditions, second trimester (principal); R10.31 Right lower quadrant pain; W19.XXXA Unspecified fall, initial encounter; O99.332 Smoking (tobacco) complicating pregnancy, second trimester; F17.210 Nicotine dependence, cigarettes, uncomplicated; Z3A.20 20 weeks gestation of pregnancy
CPT/HCPCS: 76816; 84702; 99284; A4216

== ENCOUNTER → 2023-12-01 | Outpatient (CLI) | payer OTHER, SELFPAY | END | disposition home or self-care (01) | PROVIDERS: PCP Family Medicine; Referring Provider Nurse Practitioner Women's Health; Visit Provider Nurse Practitioner Women's Health | DX: Z34.90 Encounter for supervision of normal pregnancy, unspecified, unspecified trimester (principal); Z3A.00 Weeks of gestation of pregnancy not specified | CPT/HCPCS: 36415 ==

== ENCOUNTER 2024-01-19 22:08 | Emergency (ER) | payer OTHER, SELFPAY ==
[2024-01-19 22:09] VITALS: BP 139/84; PULSE 80; RESP 16; TEMP 35.9; O2SAT 97; BMI 31.9
--- NOTE | 2024-01-19 22:27 | ED.VIS.CHEST ---
HPI History of Present Illness Chief Complaint: Chest Pain Informant: patient Onset/Context/Timing Activity at onset: sudden Timing: Continuous Quality: Positive for Pressure Location: Left Parasternal Worsened By: Breathing (Deep breathing and exhaling) Relieved By: Nothing Associated Symptoms: Positive for Palpitations; Negative for Nausea, Vomiting, Diaphoresis, Dyspnea, Cough, Fever, Lightheadedness or Acid Reflux Narrative Narrative: Patient presents with chest pain and palpitations that began tonight. Patient states it began rather suddenly. Patient states she started with some palpitations where it felt like her heart was beating fast. Patient states she checked her pulse and it was 171 at that time. Patient states that her heart rate eventually slowed down. Patient states that after her heart rate slowed down, she started having some pressure in her chest. Patient states it is over the left parasternal area. Patient states it is worse with deep breathing and exhaling. Patient states nothing makes it better. Patient denies any nausea or vomiting. Patient denies any shortness of breath. Patient denies any diaphoresis. Patient denies any cough or fever. CVD Risk Factors: Negative for Hypertension, Diabetes, Hypercholesterolemia, Family History 1' </=55 or Smoking PE Risk Factors: Negative for Recent Travel/Surgery, Recent Immobilization, Prior DVT or PE, Cancer or OCP + Smoking + >/=35 PFSH PFSH Medical History History of nicotine vaping Endometriosis Seasonal allergies Hx of supraventricular tachycardia Home Medications ?Medication ?Instructions ?Recorded ?Last Taken ?Type PNV 153-FA 400 mcg-om3 35 mg-dha 1 tab PO DAILY 10/01/23 Unknown History 25 mg-epa 5 mg-fish oil chew tablet Allergy/AdvReac Type Severity Reaction Status Date / Time lidocaine Allergy Rash Verified 01/19/24 22:11 Family History Grandmother Asthma maternal Uncle Asthma maternal Surgical History H/O eye surgery H/O nasal septoplasty H/O rhinoplasty [place] teeth extracted Social History adopted: No household members: significant other current occupational status: employed current occupation: [employer] current occupational exposures/hazards: No pets and animals: No history of recent travel: No Smoking Status: Former smoker quit date: 09/17/23 Electronic Cigarette Use: with nicotine alcohol intake: current alcohol intake frequency: holidays/special occasions only details: not while substance use type: does not use well-balanced diet: daily or most days caffeine: No eating out: 1-3 times/week during the past year weight has: remained stable what type of physical activity do you participate in: none marcin/orthodoxy: None seatbelt use: always do you feel safe at home: Yes additional social history: 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- 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 EXAM Physical Exam Const Vital Signs: 01/19/24 22:09 01/19/24 22:51 01/19/24 22:54 Temperature 96.6 F L Temperature Source Temporal Pulse Rate 80 Respiratory Rate 16 Respiratory Effort Normal Non-Labored Blood Pressure 139/84 H Blood Pressure Mean 102 Pulse Ox 97 Oxygen Delivery Method Room Air Room Air 01/19/24 23:08 01/20/24 00:00 Temperature Temperature Source Pulse Rate 86 88 Respiratory Rate 15 13 Respiratory Effort Blood Pressure 128/73 H 119/64 Blood Pressure Mean 91 82 Pulse Ox 96 97 Oxygen Delivery Method Room Air Room Air Positive well nourished and well developed General Appearance ED: well developed HEENT Reports moist mucous membranes Neck supple and no JVD Resp normal respiratory effort and clear to auscultation bilaterally Cardio regular rate and regular rhythm GI soft to palpation and non-tender GI Narrative: There is a gravid uterus palpated. There is no tenderness noted. Extremity General Extremety ED: Yes edema; Negative for tenderness General Extremity: edema bilateral lower extremity Neuro oriented x3, CN's II-XII intact bilaterally and no sensory deficits noted Sensorium / Orientation: awake and alert Motor Exam: strength 5/5 throughout Psych mental status grossly normal Heart Score History: Slightly/Non-Suspicious ECG: Normal Age: </= 45 years Risk Factors: No Risk Factors Troponin: </= Normal Limit Score: 0 MDM MDM MDM Narrative Medical decision making narrative: Differential diagnosis includes cardiac dysrhythmia, cardiac ischemia, electrolyte abnormality, pulmonary embolism, preeclampsia, and palpitations. EKG will be obtained to assess for cardiac dysrhythmia and cardiac ischemia. CTA of the chest will be obtained to assess for pulmonary embolism and pneumonia. CBC will be obtained to assess for leukocytosis, anemia, and thrombocytopenia. Comprehensive metabolic profile will be obtained to assess for hepatic function, renal function, and electrolyte abnormality. Quantitative hCG will be obtained to assess for . Lab Data Attestation: I reviewed the patient's lab results. Lab results narrative: CBC was reviewed. There is a mild leukocytosis of 13.7. There is a mild anemia with a hemoglobin of 11.0 and hematocrit of 33.0. Platelets were reviewed and were within normal limits. Comprehensive metabolic profile was reviewed and was within normal limits. Urinalysis was reviewed. There is no evidence of urinary tract infection or hematuria. There is no proteinuria noted. High-sensitivity troponin was reviewed and was normal at 8. Quantitative hCG was reviewed and was [id number]. Labs: Laboratory Results - last 24 hr 01/19/24 01/19/24 22:40 22:45 WBC 13.7 H RBC 3.86 L Hgb 11.0 L Hct 33.0 L MCV 85.5 MCH 28.5 MCHC 33.3 RDW Std Deviation 40.0 RDW Coeff of Dinesh 13.2 Plt Count 223 MPV 11.4 Immature Gran % (Auto) 1.000 H Neut % (Auto) 75.1 H Lymph % (Auto) 16.0 L [place] % (Auto) 6.7 Eos % (Auto) 0.8 Baso % (Auto) 0.4 Absolute Neuts (auto) 10.3 H Absolute Lymphs (auto) 2.18 Nucleated RBC % 0 Sodium 138 Potassium 3.5 Chloride 107 Carbon Dioxide 23.0 Anion Gap 8 BUN 10 Creatinine 0.48 L Estim Creat Clear Calc 177.66 Est GFR (MDRD) Af Amer 208 Est GFR (MDRD) Non-Af 172 BUN/Creatinine Ratio 21.0 H Glucose 98 Calcium 8.9 Total Bilirubin 0.20 AST 13 L ALT 14 Alkaline Phosphatase 63 Troponin I High Sens 8 Total Protein 6.5 Albumin 2.6 L Globulin 3.9 Albumin/Globulin Ratio 0.7 L HCG, Quant 40143 H Urine Color Yellow Urine Clarity Sl. Cloudy Urine pH 6.5 Ur Specific [place] 1.015 Urine Protein Negative Urine Glucose (UA) Normal Urine Ketones Negative Urine Occult Blood Negative Urine Nitrite Negative Urine Bilirubin Negative Urine Urobilinogen Normal Ur Leukocyte Esterase Negative Urine RBC 0 SEEN Urine WBC 0 SEEN Ur Squamous Epith Cells 0 SEEN Urine Bacteria 0 SEEN Urine Mucus 0 SEEN Radiography CTA PE Study: No Evidence of PE and No Evidence of Dissection Diagnostic Testing: Clinical Impression(s) from Imaging Studies Chest CTA 01/19/24 22:30 IMPRESSION: No pulmonary embolism or evidence of acute airspace disease.. Focal hyperenhancement within segment 4 liver, most commonly benign flash fill hemangioma or variable enhancement, at least partially present June 17, 2020 with different phase of contrast.. Recommend 6 month follow-up CT or MRI. Electronically Signed: Adan Martinez MD at 0:33 EDT , CTA of the chest was obtained. There is no evidence of pulmonary embolism or aortic dissection. This was interpreted by the radiologist and was also independently reviewed by myself. EKG Initial EKG: Attestation: I personally reviewed and interpreted this EKG as follows: Interpretation: Sinus Rhythm (81) and No Acute Injury Pattern Prior EKG tracings: not available for review Prior: No Prior Treatment and Re-Evaluation :: Patient was given aspirin here. Patient states her chest pain has improved. Patient was advised of her findings. Patient has a HEART score of 0. Patient was advised that this is low risk for acute cardiac event. 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 Patient was instructed to return if worse in any way. Patient understood and was agreeable with the plan. All questions were answered. Discharge Plan Triage Chief Complaint: Chest Pain ED Provider: Cristo Prado Dx/Rx/DC Orders Clinical Impression: Tachycardia, , Chest pain Instructions: ED Chest Pain, Uncertain Cause, ED Palpitations Prescriptions: No Action PNV no.[id number] 400 mcg-35 mg- 25 mg-5 mg tablet,chewable 1 tab PO DAILY Primary Care Provider: Marco A Valdivia Referrals: Marco A Valdivia DO [Primary Care Provider] - 5-7 Days Milagro Rivera MD [Med Staff - Active Staff] - 5-7 Days Print Language: Australian Disposition Disposition: Home, Self Care
--- NOTE | 2024-01-19 22:30 | CT_ITS ---
STUDY: CTA CHEST REASON FOR EXAM: Female, 23 years old. Chest pain -- Shield abdomen. 24 weeks . RADIATION DOSAGE (If Supplied By Facility): CTDIvol = ( 12.95 ) mGy, DLP = ( 403.59 ) mGycm TECHNIQUE: The examination was performed with the intravenous administration of IV 100mL Isovue-370. Post-processing of the angiographic images was performed, with multiplanar reformation and 3D reconstruction. Individualized dose optimization techniques were used for this CT. COMPARISON: June 17, 2020. FINDINGS: Normal enhancement of the bilateral pulmonary arteries. There is no demonstrated pulmonary embolism. Main pulmonary artery is mildly enlarged relative to aorta. No aortic dissection or aneurysmal dilatation. No cardiomegaly or pericardial effusion. No densely calcified coronary atherosclerosis. No mediastinal or hilar adenopathy. Unremarkable esophagus. No endobronchial lesion. No airspace consolidation, effusion, pneumothorax. Normal osseous structures. Anterior left hepatic segment IV 1.[address]/CTA Chest W/WO Contrast IMPRESSION: No pulmonary embolism or evidence of acute airspace disease.. Focal hyperenhancement within segment 4 liver, most commonly benign flash fill hemangioma or variable enhancement, at least partially present June 17, 2020 with different phase of contrast.. Recommend 6 month follow-up CT or MRI. Electronically Signed: Adan Martinez MD at 0:33 EDT ,
--- NOTE | 2024-01-19 22:30 | EKG12_ITS ---
Test Reason : CP Blood Pressure : / mmHG Vent. Rate : 081 BPM Atrial Rate : 081 BPM P-R Int : 144 ms QRS Dur : 076 ms QT Int : 352 ms P-R-T Axes : 058 068 020 degrees QTc Int : 408 ms Normal sinus rhythm Normal ECG Confirmed by Rafael Martinez ([id number]), food expeditor EUGENIA LIN ([id number]) on 01/20/2024 2:20:23 PM Referred By: ES Confirmed By:Rafael Martinez
[2024-01-19] MEDS: Aspirin 81 MG TAB.CHEW 324 MG PO (22:45)
[2024-01-19 22:55] LABS: Bacteria 0 SEEN /hpf (None Seen); Mucous, Urine 0 SEEN /hpf (<or=2+); Red Blood Cells-Urine 0 SEEN /hpf (0-5); Squamous Epithelial Cells - UA 0 SEEN /hpf (5-10); White Blood Cells 0 SEEN /hpf (0-5)
[2024-01-19 22:58] LABS: Color, Urine Yellow (Yellow); Glucose, Dipstick Normal (Normal); Ketone-Dipstick Negative (Negative); Leukocyte Esterase-Dipstick Negative /ul (Negative); Nitrite-Dipstick Negative (Negative); Occult Blood-Urine Negative /ul (Negative); Protein-Dipstick Negative (Negative); Specific Gravity, Urine 1.015 (1.002-1.030); Urine Bilirubin Dipstick Negative (Negative); Urine Clarity Sl. Cloudy (Clear); Urine Urobilinogen Normal (Normal); Urine pH 6.5 (5.0 - 8.0)
[2024-01-19 22:58] LABS: Absolute Lymphocyte Count 2.18 X10^3/uL (0.83-4.51); Absolute Neutrophil Count 10.3 X10^3/uL (2.0-7.7); Basophil# 0.05 X10^3/uL; Basophil% 0.4 % (0-1); Eosinophil# 0.11 X10^3/uL; Eosinophils% 0.8 % (0-5); Lymphocyte # 2.18 X10^3/ul (0.83-4.51); Mean Corp Hgb Conc 33.3 g/dL (32-36); Mean Corpuscular Hgb 28.5 pg (27.0-32.0); Mean Corpuscular Volume 85.5 fL (81-99); Mean Platelet Vol. 11.4 fl (6.2-12.0); Monocyte# 0.91 X10^3/uL; Monocyte% 6.7 % (0-10); NRBC Flagged by Analyzer 0 % (0-5); Neutrophil # 10.28 X10^3/uL (2.7-7.7); Neutrophil % 75.1 % (47-70); Platelet Count 223 K/mm3 (150-450); RBC Distribution Width CV 13.2 % (11.6-14.6); Red Blood Count 3.86 M/mm3 (4.2-5.4); White Blood Count 13.7 K/mm3 (4.4-11.0)
[2024-01-19 23:08] VITALS: BP 128/73; PULSE 86; RESP 15; O2SAT 96
[2024-01-19 23:17] LABS: ALB/GLOB Ratio 0.7 RATIO (0.9-2.4); AST(SGOT) 13 U/L (15-37); Alanine Aminotransfer ALT/SGPT 14 U/L (13-56); Albumin, Serum 2.6 g/dL (3.2-5.0); Alkaline Phosphatase 63 U/L (45-117); Anion Gap 8 (5-15); BUN 10 mg/dL (7-18); Calcium,Total 8.9 mg/dL (8.5-10.1); Chloride 107 mmol/L (98-107); Creatinine, Serum 0.48 mg/dL (0.55-1.02); EST Glomerular Filtration Rate 172 mL/min (>60); Est Glom Filt Rate - Afr Amer 208 mL/min (>60); Estimated Creatinine Clearance 177.66 ml/min; Globulin 3.9 g/dL (2.2-4.2); Glucose 98 mg/dL (74-106); Potassium 3.5 mmol/L (3.5-5.1); Protein, Total 6.5 g/dL (6.4-8.2); Sodium Level 138 mmol/L (136-145); Troponin-I HS 8 pg/mL (3.0-54.0)
[2024-01-20] VITALS: BP 119/64; PULSE 88; RESP 13; O2SAT 97
[2024-01-20 00:02] LABS: hCG Titer Quant., Serum 13813 mIU/mL (1-3)
[2024-01-20 00:56] VITALS: BP 115/60; PULSE 87; RESP 18; TEMP 36.6; O2SAT 99
== END 2024-01-20 00:58 | disposition home or self-care (01) ==
PROVIDERS: Emergency Provider Emergency Medicine; PCP Family Medicine; Visit Provider Emergency Medicine
DX: O26.892 Other specified pregnancy related conditions, second trimester (principal); R07.9 Chest pain, unspecified; R00.0 Tachycardia, unspecified; Z3A.24 24 weeks gestation of pregnancy; Z87.891 Personal history of nicotine dependence
CPT/HCPCS: 71275; 80053; 81001; 84484; 84702; 85025; 93005; 99284; Q9967; A4216

== ENCOUNTER → 2024-01-25 | Outpatient (CLI) | payer OTHER, SELFPAY ==
[2024-01-25 13:27] LABS: Glucose Challenge Gest 1H 50g 101 mg/dL (70-140)
[2024-01-25 13:35] LABS: Absolute Lymphocyte Count 1.72 X10^3/uL (0.83-4.51); Absolute Neutrophil Count 8.3 X10^3/uL (2.0-7.7); Basophil# 0.05 X10^3/uL; Basophil% 0.4 % (0-1); Eosinophil# 0.17 X10^3/uL; Eosinophils% 1.5 % (0-5); Hematocrit 31.8 % (37-47); Hemoglobin 10.4 g/dL (12.0-15.0); Lymphocyte # 1.72 X10^3/ul (0.83-4.51); Lymphocyte % 15.3 % (19-41); Mean Corp Hgb Conc 32.7 g/dL (32-36); Mean Corpuscular Hgb 27.5 pg (27.0-32.0); Mean Corpuscular Volume 84.1 fL (81-99); Mean Platelet Vol. 10.9 fl (6.2-12.0); Monocyte# 0.88 X10^3/uL; Monocyte% 7.8 % (0-10); NRBC Flagged by Analyzer 0 % (0-5); Neutrophil # 8.34 X10^3/uL (2.7-7.7); Neutrophil % 74.2 % (47-70); Platelet Count 218 K/mm3 (150-450); RBC Distribution Width CV 13.1 % (11.6-14.6); RBC Distribution Width SD 40.2 fl (35.1-43.9); Red Blood Count 3.78 M/mm3 (4.2-5.4); White Blood Count 11.3 K/mm3 (4.4-11.0)
[2024-01-25 14:00] LABS: HIV - WCH Non-Reactive (Nonreactive); Syphilis Antibodies Non-reactive
== END | disposition home or self-care (01) ==
LOC: PAVLAB 12:50
PROVIDERS: PCP Family Medicine; Referring Provider Obstetrics & Gynecology; Visit Provider Obstetrics & Gynecology
DX: O09.90 Supervision of high risk pregnancy, unspecified, unspecified trimester (principal); Z3A.00 Weeks of gestation of pregnancy not specified
CPT/HCPCS: 36415; 82950; 85025; 86703; 86780

== ENCOUNTER 2024-02-29 22:40 | Outpatient (CLI) | payer OTHER, SELFPAY ==
[2024-02-29 22:49] VITALS: BMI 33.8
[2024-02-29 22:55] VITALS: PULSE 105; RESP 14; TEMP 36.8; O2SAT 98
[2024-02-29 22:56] VITALS: BP 125/78; PULSE 102
[2024-02-29 23:48] LABS: Color, Urine Yellow (Yellow); Glucose, Dipstick Normal (Normal); Ketone-Dipstick Negative (Negative); Leukocyte Esterase-Dipstick 25 /ul (Negative); Nitrite-Dipstick Negative (Negative); Occult Blood-Urine Negative /ul (Negative); Protein-Dipstick Negative (Negative); Specific Gravity, Urine 1.015 (1.002-1.030); Urine Bilirubin Dipstick Negative (Negative); Urine Clarity Clear (Clear); Urine Urobilinogen Normal (Normal)
[2024-03-01 00:40] LABS: Fetal Fibronectin Negative; Record Kit Lot#, fFN H3011
--- NOTE | 2024-03-03 08:56 | OB.TRI.PN_ITS ---
Progress Notes Date of Service: 02/29/24 Progress Note: Patient presents for triage evaluation secondary to threatened labor FHT: 150 Moderate variability reactive no decelerations category I tracing [place]: irreuglar Contractions Assessment and plan: threatened labor no cervical change Reactive NST, reassuring maternal and status patient discharged to home to follow-up as scheudled. See problem list details for additional plan information. Laboratory Studies: Laboratory Tests 02/29/24 Range/Units 23:30 Urine Color Yellow (Yellow) Urine Clarity Clear (Clear) Urine pH 6.0 (5.0 - 8.0) Ur Specific [place] 1.015 (1.002-1.030) Urine Protein Negative (Negative) mg/dl Urine Glucose (UA) Normal (Normal) mg/dl Urine Ketones Negative (Negative) mg/dl Urine Occult Blood Negative (Negative) /ul Urine Nitrite Negative (Negative) Urine Bilirubin Negative (Negative) mg/dL Urine Urobilinogen Normal (Normal) mg/dl Ur Leukocyte Esterase 25 H (Negative) /ul Fibronectin Negative Charges/Coding Procedures Urinary/Genital [id number]: [id number] non-stress test Interp
== END 2024-03-01 01:00 | disposition home or self-care (01) ==
LOC: WPOUT 22:46 → WP 22:47
PROVIDERS: PCP Family Medicine; Referring Provider Obstetrics & Gynecology; Visit Provider Obstetrics & Gynecology
DX: O47.9 False labor, unspecified (principal); Z3A.00 Weeks of gestation of pregnancy not specified
CPT/HCPCS: 59050; 81002; 82731; 87086; 99221; G0378

== ENCOUNTER 2024-03-17 16:03 | Outpatient (CLI) | payer OTHER, SELFPAY ==
[2024-03-17 16:18] VITALS: BMI 34.7
[2024-03-17 16:21] VITALS: RESP 16; TEMP 36.7
[2024-03-17 16:22] VITALS: BP 135/85; PULSE 98
--- NOTE | 2024-03-17 19:22 | OB.TRI.HP_ITS ---
HPI - General HPI Narrative HUMBERTO YOUNG, is a 23 Fy/o @ 32 weeks 4 days who presents to L&D with cramping. She was checked in the office several hours ago and found to be closed/thick/ and high. 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 She admits to not drinking fluids during the day as much as she should. Maternal Data Information JUAN JOSE Calculator Estimated Delivery Date Method Current WG Current Estimate 05/09/24 Ultrasound #1 32w 4d PFSH PFS Medical History Palpitations [place]-Schlatter's disease Supervision of high-risk Anxiety and depression Tachycardia Chest pain Anemia affecting Endometriosis Seasonal allergies Hx of supraventricular tachycardia Home Medications ?Medication ?Instructions ?Recorded ?Last Taken ?Type PNV 153-FA 400 mcg-om3 35 mg-dha 1 tab PO DAILY 10/01/23 03/16/24 08:00 History 25 mg-epa 5 mg-fish oil chew tablet ferrous sulfate 137 mg (45 mg 137 mg PO DAILY 02/16/24 03/16/24 22:00 History iron) tablet,extended release (Slow Fe) Allergy/AdvReac Type Severity Reaction Status Date / Time lidocaine Allergy Rash Verified 03/17/24 16:28 Family History Grandmother Asthma maternal Hypertension Uncle Asthma maternal Surgical History H/O eye surgery H/O nasal septoplasty H/O rhinoplasty [place] teeth extracted Social History adopted: No household members: significant other current occupational status: employed current occupation: [employer] current occupational exposures/hazards: No pets and animals: No history of recent travel: No Smoking Status: Former smoker quit date: 09/17/23 Electronic Cigarette Use: with nicotine alcohol intake: current alcohol intake frequency: holidays/special occasions only details: not while substance use type: does not use well-balanced diet: daily or most days caffeine: No eating out: 1-3 times/week during the past year weight has: remained stable what type of physical activity do you participate in: none marcin/protestant: None seatbelt use: always do you feel safe at home: Yes additional social history: 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 History 1 Elective abortions Hx Para 0 Spontaneous abortions Hx # Term Pregnancies Ectopic pregnancies Hx # Pregnancies Multiple births # of living children Visit Details Expected Delivery Route/Plan Labor Preferences- CB/BF classes: enc labor support person: Kimo labor intervention preferences: [] pain management options preferred: cut cord/dad catch: yes : yes PP control planned: discussed discussed possible routes of delivery and associated risks: [] special requests: [] Plans Covid status: [] Flu vaccine: [] Tdap vaccine: done Rhogam: na LARC form signed: done Problem list reviewed and updated with the most current plan of care details and appropriate orders placed. Relevant counseling for the gestational age provided. Continue routine care and follow up unless otherwise noted in visit notes/problem list details OB Flowsheet Initial Weight: Not Recorded Date -?-?-?-?-?-?-?-?-?-?-?-?- EGA Weight BP Urine Prot -?-?-?-?-?-?-?-?-?-?-?-?- Glucose FHR FuHt Pres Dilation -?-?-?-?-?-?-?-?-?-?-?-?- Effaced St Visit Note 10/05/23 -?-?-?-?-?-?-?-?-?-?-?-?- 9w 0d 140 lb 8 oz 134/85 -?-?-?-?-?-?-?-?-?-?-?-?- 171 -?-?-?-?-?-?--?-?-?-?-?-?- JV- CRL consiste nt with prior ultrasound. wants nipt and carrier testing, 11/02/23 -?-?-?-?-?-?-?-?-?-?-?-?- 13w 0d 146 lb 8 oz 111/75 Nega tive -?-?-?-?-?-?-?-?-?-?-?-?- Negative -?-?-?-?-?-?-?-?-?-?-?-?- KW-no vb/crampin g. US ordered. movement and strong fht noted with handheld US. 3 small skin colored nodules noted on left labia. possible infected hair follicle VS (likely) genital wart. will continue to monitor 12/01/23 -?-?-?-?-?-?-?-?-?-?-?-?- 17w 1d 153 lb 4 oz 118/66 Nega tive -?-?-?-?-?-?-?-?-?-?-?-?- Negative 161 -?-?-?-?-?-?-?-?-?-?-?-?- MH-No Vb, LOF. H ad fall last week/did not land on abdomen, no bleeding. AFP today 12/30/23 -?-?-?-?-?-?-?-?-?-?-?-?- 21w 2d 164 lb 124/78 -?-?-?-?-?-?-?-?-?-?-?-?- 145 -?-?-?-?-?-?-?-?-?-?-?-?- - no vb crampi ng will look for afp results- hasn't come back yet may need redrawn, educated on this SM- no vb cramping afp negat jim 01/25/24 -?-?-?-?-?-?-?-?-?-?-?-?- 25w 0d 177 lb 2 oz 118/80 Nega tive -?-?-?-?-?-?-?-?-?-?-?-?- Negative 144 -?-?-?-?-?-?-?-?-?-?-?-?- MH-No VB, LOF. G ood FM. Still struggling with tachycardia. In ED 01/18 w normal evaluation. HR was 120-170 at that time. Will discuss with on management. 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 02/16/24 -?-?-?-?-?-?-?-?-?-?-?-?- 28w 1d 184 lb 126/82 Negative -?-?-?-?-?-?-?-?-?-?-?-?- Negative 150 28 -?-?-?-?-?-?-?-?-?-?-?-?- KW- no vb/lof/ct x. good fm. KW- no vb/lof/ctx. good fm. normal 28 week labs. TDAP and LARC today. has appt with pcp tomorrow for CT review and cardiology appt in 2 weeks-echo on 02/21. 03/01/24 -?-?-?-?-?-?-?-?-?-?-?-?- 30w 1d 181 lb 6 oz 110/82 Nega tive -?-?-?-?-?-?-?-?-?-?-?-?- Negative 147 30 -?-?-?-?-?-?-?-?-?-?-?-?- MH-No VB, LOF. G ood FM. In WP last pm for pain around umbilicus. Pain has lessened. Still with palpitations. Seeing Dr Pulido today 03/17/24 -?-?-?-?-?-?-?-?-?-?-?-?- 32w 3d 192 lb 132/82 Negative -?-?-?-?-?-?-?-?-?-?-?-?- Negative 145 32 0 -?-?-?-?-?-?-?-?-?-?-?-?- LC- no vb/lof/ct x. has had increased cramping with work. LC- no vb/lof/ctx. 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 Constitutional Constitutional: Reports systems reviewed and no addt'l complaints, except as documented Gastrointestinal Gastrointestinal: Denies bloating, constipation, cramping, diarrhea, nausea or vomiting Genitourinary Genitourinary: Reports other Details: Denies vaginal odor, vaginal bleeding, or vaginal discharge ; Denies difficulty urinating or flank pain NST FHR Rate Baby A Baseline: 140- 150 Variability:: Moderate Accelerations:: 15 x 15 Decelerations:: None NST Reactive:: Yes FHR Category:: Category I Assessment & Plan (1) False labor before 37 completed weeks of gestation in third trimester: (2) Palpitations: (3) Hx of supraventricular tachycardia: (4) Endometriosis: (5) [place]-Schlatter's disease: QUALIFIERS: Laterality: unspecified laterality Qualified Code(s): 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 May start metoprolol 3rd trim if problematic (8) Anxiety and depression: (9) Supervision of high-risk : QUALIFIERS: Trimester: third trimester Qualified Code(s): O09.93 - Supervision of high risk , unspecified, third trimester COMMENT: PRR,, JUAN JOSE 05/09/24 boy Yamil Malin (10) : QUALIFIERS: Weeks of gestation: 32 weeks Qualified Code(s): Z3A.32 - 32 weeks gestation of COMMENT: Anatomy normal, carrier neg. , NIPT low risk. AFP: negative PLAN: Plan rare contractions seen on monitor. no cervical dilation recommend hydration and rest. dc to home Charges/Coding Multi Select Codes Urinary/Genital Urinary/Genital CPT Codes: 53505-17 non-stress test Interp
== END 2024-03-17 18:12 | disposition home or self-care (01) ==
LOC: WPOUT 16:06 → WP 16:06
PROVIDERS: PCP Family Medicine; Referring Provider Obstetrics & Gynecology; Visit Provider Obstetrics & Gynecology
DX: O47.03 False labor before 37 completed weeks of gestation, third trimester (principal); O99.891 Other specified diseases and conditions complicating pregnancy; R25.2 Cramp and spasm; Z87.891 Personal history of nicotine dependence; O99.013 Anemia complicating pregnancy, third trimester; Z3A.32 32 weeks gestation of pregnancy
CPT/HCPCS: 59025; 59050; 99221; G0378

== ENCOUNTER → 2024-03-17 | Outpatient (CLI) | payer OTHER, SELFPAY | END | disposition home or self-care (01) | PROVIDERS: PCP Family Medicine; Referring Provider Registered Nurse; Visit Provider Registered Nurse | DX: R10.2 Pelvic and perineal pain (principal) | CPT/HCPCS: 87086; 87088 ==

== ENCOUNTER → 2024-03-24 | Outpatient (CLI) | payer OTHER, SELFPAY ==
[2024-03-24 11:03] LABS: Absolute Lymphocyte Count 1.45 X10^3/uL (0.83-4.51); Absolute Neutrophil Count 7.6 X10^3/uL (2.0-7.7); Basophil# 0.02 X10^3/uL; Basophil% 0.2 % (0-1); Eosinophil# 0.11 X10^3/uL; Eosinophils% 1.1 % (0-5); Hematocrit 35.4 % (37-47); Hemoglobin 11.6 g/dL (12.0-15.0); Lymphocyte # 1.45 X10^3/ul (0.83-4.51); Lymphocyte % 14.5 % (19-41); Mean Corp Hgb Conc 32.8 g/dL (32-36); Mean Corpuscular Hgb 27.2 pg (27.0-32.0); Mean Corpuscular Volume 82.9 fL (81-99); Mean Platelet Vol. 11.3 fl (6.2-12.0); Monocyte# 0.71 X10^3/uL; Monocyte% 7.1 % (0-10); NRBC Flagged by Analyzer 0 % (0-5); Neutrophil # 7.56 X10^3/uL (2.7-7.7); Neutrophil % 75.9 % (47-70); Platelet Count 181 K/mm3 (150-450); RBC Distribution Width CV 16.4 % (11.6-14.6); RBC Distribution Width SD 48.4 fl (35.1-43.9); Red Blood Count 4.27 M/mm3 (4.2-5.4)
[2024-03-24 14:42] LABS: ALB/GLOB Ratio 0.6 RATIO (0.9-2.4); AST(SGOT) 10 U/L (15-37); Alanine Aminotransfer ALT/SGPT 12 U/L (13-56); Albumin, Serum 2.4 g/dL (3.2-5.0); Alkaline Phosphatase 108 U/L (45-117); Anion Gap 4 (5-15); BUN 5 mg/dL (7-18); BUN/Creat Ratio 8.8 RATIO (10-20); Calcium,Total 8.5 mg/dL (8.5-10.1); Chloride 109 mmol/L (98-107); Creatinine, Serum 0.57 mg/dL (0.55-1.02); EST Glomerular Filtration Rate 140 mL/min (>60); Est Glom Filt Rate - Afr Amer 170 mL/min (>60); Globulin 4.2 g/dL (2.2-4.2); Glucose 116 mg/dL (74-106); LDH 164 U/L (84-246); Potassium 3.8 mmol/L (3.5-5.1); Protein, Total 6.6 g/dL (6.4-8.2); Sodium Level 138 mmol/L (136-145); Uric Acid 4.6 mg/dL (2.6-6.0)
== END | disposition home or self-care (01) ==
PROVIDERS: PCP Family Medicine; Referring Provider Obstetrics & Gynecology; Visit Provider Obstetrics & Gynecology
DX: O26.899 Other specified pregnancy related conditions, unspecified trimester (principal); R10.2 Pelvic and perineal pain; Z3A.00 Weeks of gestation of pregnancy not specified
CPT/HCPCS: 36415; 80053; 83615; 84550; 85025; 87086

== ENCOUNTER 2024-03-26 00:43 | Outpatient (CLI) | payer OTHER, SELFPAY ==
[2024-03-26] VITALS (10 sets, daily range): BP systolic 117–134; BP diastolic 68–90; PULSE 84–97; RESP 16; TEMP 36.7; O2SAT 98; BMI 36.0
[2024-03-26 03:08] LABS: Protein, Urine (Random) 8.4 mg/dL (<11.9); Protein:Creat Ratio 134 mg/g CRE (0-200)
[2024-03-26 03:09] LABS: Hematocrit 34.3 % (37-47); Mean Corp Hgb Conc 32.1 g/dL (32-36); Mean Corpuscular Hgb 26.8 pg (27.0-32.0); Mean Corpuscular Volume 83.5 fL (81-99); Mean Platelet Vol. 11.9 fl (6.2-12.0); Platelet Count 190 K/mm3 (150-450); RBC Distribution Width CV 16.2 % (11.6-14.6); RBC Distribution Width SD 48.8 fl (35.1-43.9); Red Blood Count 4.11 M/mm3 (4.2-5.4); White Blood Count 12.4 K/mm3 (4.4-11.0)
[2024-03-26 03:14] LABS: AST(SGOT) 11 U/L (15-37); Alanine Aminotransfer ALT/SGPT 10 U/L (13-56); Creatinine, Serum 0.53 mg/dL (0.55-1.02); EST Glomerular Filtration Rate 151 mL/min (>60); Est Glom Filt Rate - Afr Amer 183 mL/min (>60); Estimated Creatinine Clearance 171.43 ml/min; Uric Acid 4.5 mg/dL (2.6-6.0)
--- NOTE | 2024-03-26 10:04 | OB.TRI.HP_ITS ---
HPI - General General Date of Service: 03/26/24 HPI Narrative HUMBERTO YOUNG, is a 23 F who presents 33.5 weeks with elevated BPs at home. denies headaches, visual changes, ruq pain. Maternal Data Information JUAN JOSE Calculator Estimated Delivery Date Method Current WG Current Estimate 05/09/24 Ultrasound #1 33w 5d PFSH PFSH Medical History Palpitations [place]-Schlatter's disease Supervision of high-risk Anxiety and depression Tachycardia Chest pain Anemia affecting Endometriosis Seasonal allergies Hx of supraventricular tachycardia Home Medications ?Medication ?Instructions ?Recorded ?Last Taken ?Type PNV 153-FA 400 mcg-om3 35 mg-dha 1 tab PO DAILY 10/01/23 03/16/24 08:00 History 25 mg-epa 5 mg-fish oil chew tablet ferrous sulfate 137 mg (45 mg 137 mg PO DAILY 02/16/24 03/16/24 22:00 History iron) tablet,extended release (Slow Fe) nitrofurantoin 100 mg PO BID #14 caps 03/24/24 Unknown Rx monohydrate/macrocrystals 100 mg capsule (Macrobid) Allergy/AdvReac Type Severity Reaction Status Date / Time lidocaine Allergy Rash Verified 03/26/24 01:11 Family History Grandmother Asthma maternal Hypertension Uncle Asthma maternal Surgical History H/O eye surgery H/O nasal septoplasty H/O rhinoplasty [place] teeth extracted Social History adopted: No household members: significant other current occupational status: employed current occupation: [employer] current occupational exposures/hazards: No pets and animals: No history of recent travel: No Smoking Status: Former smoker quit date: 09/17/23 Electronic Cigarette Use: with nicotine alcohol intake: current alcohol intake frequency: holidays/special occasions only details: not while substance use type: does not use well-balanced diet: daily or most days caffeine: No eating out: 1-3 times/week during the past year weight has: remained stable what type of physical activity do you participate in: none marcin/yazdanism: None seatbelt use: always do you feel safe at home: Yes additional social history: Fiance- Kimo-Tracer Powder Blender History 1 Elective abortions Hx Para 0 Spontaneous abortions Hx # Term Pregnancies Ectopic pregnancies Hx # Pregnancies Multiple births # of living children Visit Details Expected Delivery Route/Plan Labor Preferences- CB/BF classes: enc labor support person: Kimo labor intervention preferences: [] pain management options preferred: cut cord/dad catch: yes : yes PP control planned: discussed discussed possible routes of delivery and associated risks: [] special requests: [] Plans Covid status: [] Flu vaccine: [] Tdap vaccine: done Rhogam: na LARC form signed: done Problem list reviewed and updated with the most current plan of care details and appropriate orders placed. Relevant counseling for the gestational age provided. Continue routine care and follow up unless otherwise noted in visit notes/problem list details OB Flowsheet Initial Weight: Not Recorded Date -?-?-?-?-?-?-?-?-?-?-?-?- EGA Weight BP Urine Prot -?-?-?-?-?-?-?-?-?-?-?-?- Glucose FHR FuHt Pres Dilation -?-?-?-?-?-?-?-?-?-?-?-?- Effaced St Visit Note 10/05/23 -?-?-?-?-?-?-?-?-?-?-?-?- 9w 0d 140 lb 8 oz 134/85 -?-?-?-?-?-?-?-?-?-?-?-?- 171 -?-?-?-?-?-?-?-?-?-?-?-?- JV- CRL consiste nt with prior ultrasound. wants nipt and carrier testing, 11/02/23 -?-?-?-?-?-?-?-?-?-?-?-?- 13w 0d 146 lb 8 oz 111/75 Nega tive -?-?-?-?-?-?-?-?-?-?-?-?- Negative -?-?-?-?-?-?-?-?-?-?-?-?- KW-no vb/crampin g. US ordered. movement and strong fht noted with handheld US. 3 small skin colored nodules noted on left labia. possible infected hair follicle VS (likely) genital wart. will continue to monitor 12/01/23 -?-?-?-?-?-?-?-?-?-?-?-?- 17w 1d 153 lb 4 oz 118/66 Nega tive -?-?-?-?-?-?-?-?-?-?-?-?- Negative 161 -?-?-?-?-?-?-?-?-?-?-?-?- MH-No Vb, LOF. H ad fall last week/did not land on abdomen, no bleeding. AFP today 12/30/23 -?-?-?-?-?-?-?-?-?-?-?-?- 21w 2d 164 lb 124/78 -?-?-?-?-?-?-?-?-?-?-?-?- 145 -?-?-?-?-?-?-?-?-?-?-?-?- - no vb crampi ng will look for afp results- hasn't come back yet may need redrawn, educated on this SM- no vb cramping afp negat jim 01/25/24 -?-?-?-?-?-?-?-?-?-?-?-?- 25w 0d 177 lb 2 oz 118/80 Nega tive -?-?-?-?-?-?-?-?-?-?-?-?- Negative 144 -?-?-?-?-?-?-?-?-?-?-?-?- MH-No VB, LOF. G ood FM. Still struggling with tachycardia. In ED 01/18 w normal evaluation. HR was 120-170 at that time. Will discuss with on management. Her patient account analyst at [facility] hesitant to start med due to . 02/16/24 -?-?-?-?-?-?-?-?-?-?-?-?- 28w 1d 184 lb 126/82 Negative -?-?-?-?-?-?-?-?-?-?-?-?- Negative 150 28 -?-?-?-?-?-?-?-?-?-?-?-?- KW- no vb/lof/ct x. good fm. KW- no vb/lof/ctx. good fm. normal 28 week labs. TDAP and LARC today. has appt with pcp tomorrow for CT review and cardiology appt in 2 weeks-echo on 02/21. 03/01/24 -?-?-?-?-?-?-?-?-?-?-?-?- 30w 1d 181 lb 6 oz 110/82 Nega tive -?-?-?-?-?-?-?-?-?-?-?-?- Negative 147 30 -?-?-?-?-?-?-?-?-?-?-?-?- MH-No VB, LOF. G ood FM. In WP last pm for pain around umbilicus. Pain has lessened. Still with palpitations. Seeing Dr Pulido today 03/17/24 -?-?-?-?-?-?-?-?-?-?-?-?- 32w 3d 192 lb 132/82 Negative -?-?-?-?-?-?-?-?-?-?--?-?- Negative 145 32 0 -?-?-?-?-?-?-?-?-?-?-?-?- LC- no vb/lof/ct x. has had increased cramping with work. LC- no vb/lof/ctx. 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 03/24/24 -?-?-?-?-?-?-?-?-?-?-?-?- 33w 3d 196 lb 2 oz 130/82 Nega tive -?-?-?-?--?-?-?-?-?-?-?-?- Negative 144 33 0 -?-?-?-?-?-?-?-?-?-?-?-?- JV- pt still hav ing some contractions and has some elevations in pressures at home. normal here. mom is taking her bp. estefany from l&D getting her a cuff for home. She has nitrites in her urine today. sending for culture. pih labs (minus the prot: cr) to be drawn today. when uti is cleared up will do a prot:cr level. no severe features or hypertension at this time. NST FHR Rate Baby A Baseline: 135 Variability:: Moderate Accelerations:: 15 x 15 Decelerations:: None NST Reactive:: Yes FHR Category:: Category I Assessment & Plan (1) Elevated BP without diagnosis of hypertension: COMMENT: 134/90 all other under 140/90 with lowest 117/73. normal pec labs. PLAN: Patient presents for triage evaluation secondary to elevated bp at home. stable bps in WP with normal PEC work up. FHT: Moderate variability reactive no decelerations category I tracing Zeigler: no Contractions Assessment and plan: Reactive NST, reassuring maternal and status patient discharged to home to follow-up in office. See problem list details for additional plan information. Charges/Coding Procedures Urinary/Genital 52xxx-59xxx: 52634-38 non-stress test Interp
== END 2024-03-26 04:00 | disposition home or self-care (01) ==
LOC: WPOUT 00:51 → WP 00:51
PROVIDERS: PCP Family Medicine; Referring Provider Registered Nurse; Visit Provider Registered Nurse
DX: O99.891 Other specified diseases and conditions complicating pregnancy (principal); R03.0 Elevated blood-pressure reading, without diagnosis of hypertension; Z3A.33 33 weeks gestation of pregnancy
CPT/HCPCS: 36415; 59025; 59050; 82565; 82570; 84156; 84450; 84460; 84550; 85027; 99221; G0378

== ENCOUNTER → 2024-03-29 | Outpatient (CLI) | payer OTHER, SELFPAY ==
[2024-03-29 11:30] LABS: Absolute Lymphocyte Count 1.66 X10^3/uL (0.83-4.51); Absolute Neutrophil Count 8.3 X10^3/uL (2.0-7.7); Basophil# 0.05 X10^3/uL; Basophil% 0.4 % (0-1); Eosinophil# 0.13 X10^3/uL; Eosinophils% 1.2 % (0-5); Hematocrit 37.8 % (37-47); Hemoglobin 12.1 g/dL (12.0-15.0); Lymphocyte # 1.66 X10^3/ul (0.83-4.51); Lymphocyte % 14.9 % (19-41); Mean Corpuscular Hgb 26.3 pg (27.0-32.0); Mean Corpuscular Volume 82.2 fL (81-99); Mean Platelet Vol. 10.8 fl (6.2-12.0); Monocyte# 0.93 X10^3/uL; Monocyte% 8.4 % (0-10); NRBC Flagged by Analyzer 0 % (0-5); Neutrophil # 8.29 X10^3/uL (2.7-7.7); Neutrophil % 74.5 % (47-70); Platelet Count 179 K/mm3 (150-450); RBC Distribution Width SD 47.2 fl (35.1-43.9); White Blood Count 11.1 K/mm3 (4.4-11.0)
[2024-03-29 11:47] LABS: ALB/GLOB Ratio 0.6 RATIO (0.9-2.4); AST(SGOT) 13 U/L (15-37); Alanine Aminotransfer ALT/SGPT 13 U/L (13-56); Albumin, Serum 2.5 g/dL (3.2-5.0); Alkaline Phosphatase 119 U/L (45-117); Anion Gap 5 (5-15); BUN 6 mg/dL (7-18); BUN/Creat Ratio 10.1 RATIO (10-20); Calcium,Total 9.7 mg/dL (8.5-10.1); Chloride 106 mmol/L (98-107); Creatinine, Serum 0.59 mg/dL (0.55-1.02); EST Glomerular Filtration Rate 133 mL/min (>60); Est Glom Filt Rate - Afr Amer 161 mL/min (>60); Globulin 4.4 g/dL (2.2-4.2); Glucose 88 mg/dL (74-106); Potassium 4.1 mmol/L (3.5-5.1); Protein, Total 6.9 g/dL (6.4-8.2); Sodium Level 138 mmol/L (136-145); Uric Acid 4.4 mg/dL (2.6-6.0)
== END | disposition home or self-care (01) ==
LOC: PAVLAB 11:14
PROVIDERS: PCP Family Medicine; Referring Provider Obstetrics & Gynecology; Visit Provider Obstetrics & Gynecology
DX: R03.0 Elevated blood-pressure reading, without diagnosis of hypertension (principal)
CPT/HCPCS: 36415; 80053; 84550; 85025

== ENCOUNTER 2024-03-31 09:53 | Inpatient (IN) | payer OTHER, SELFPAY ==
[2024-03-30] VITALS (41 sets, daily range): BP systolic 106–162; BP diastolic 56–99; PULSE 86–163; RESP 16; TEMP 36.3–36.6; O2SAT 90–100; BMI 35.9
[2024-03-30 14:41] LABS: Protein, Urine (Random) 9.4 mg/dL (<11.9); Protein:Creat Ratio 214 mg/g CRE (0-200)
[2024-03-30 18:45] LABS: Hematocrit 35.1 % (37-47); Hemoglobin 11.6 g/dL (12.0-15.0); Mean Corpuscular Hgb 26.7 pg (27.0-32.0); Mean Corpuscular Volume 80.9 fL (81-99); Mean Platelet Vol. 10.9 fl (6.2-12.0); Platelet Count 176 K/mm3 (150-450); RBC Distribution Width CV 15.9 % (11.6-14.6); RBC Distribution Width SD 46.6 fl (35.1-43.9); Red Blood Count 4.34 M/mm3 (4.2-5.4); White Blood Count 10.4 K/mm3 (4.4-11.0)
[2024-03-30 19:01] LABS: AST(SGOT) 11 U/L (15-37); Alanine Aminotransfer ALT/SGPT 13 U/L (13-56); EST Glomerular Filtration Rate 161 mL/min (>60); Est Glom Filt Rate - Afr Amer 195 mL/min (>60); Estimated Creatinine Clearance 181.48 ml/min; Uric Acid 4.1 mg/dL (2.6-6.0)
[2024-03-30] MEDS: Acetaminophen 500 MG Tablet 1000 MG PO (19:31)
[2024-03-30] MEDS: Betamethasone/Betamethasone 30 MG/5 ML Vial 12 MG IM (19:32)
[2024-03-30 20:10] LABS: Protein, Urine (Random) 9.3 mg/dL (<11.9); Protein:Creat Ratio 145 mg/g CRE (0-200)
--- NOTE | 2024-03-30 20:10 | OB.TRI.HP_ITS ---
HPI - General HPI Narrative HUMBERTO YOUNG, is a 23 F who presents with elevated blood pressures and persistent headache over the last week. There is no proteinuria and patient denies any visual changes. Patient is taking Claritin and Tylenol with minimal relief. Patient has not gotten any steroids in the . She has not had a growth ultrasound recently. Patient denies any vaginal bleeding loss of fluid admits good movement. Maternal Data Information JUAN JOSE Calculator Estimated Delivery Date Method Current WG Current Estimate 05/09/24 Ultrasound #1 34w 3d PFSH PFS Medical History Palpitations [place]-Schlatter's disease Supervision of high-risk Anxiety and depression Tachycardia Chest pain Anemia affecting Endometriosis Seasonal allergies Hx of supraventricular tachycardia Home Medications ?Medication ?Instructions ?Recorded ?Last Taken ?Type PNV 153-FA 400 mcg-om3 35 mg-dha 1 tab PO DAILY 10/01/23 03/16/24 08:00 History 25 mg-epa 5 mg-fish oil chew tablet ferrous sulfate 137 mg (45 mg 137 mg PO DAILY 02/16/24 03/16/24 22:00 History iron) tablet,extended release (Slow Fe) nitrofurantoin 100 mg PO BID #14 caps 03/24/24 Unknown Rx monohydrate/macrocrystals 100 mg capsule (Macrobid) Allergy/AdvReac Type Severity Reaction Status Date / Time lidocaine Allergy Rash Verified 03/30/24 18:01 Family History Grandmother Asthma maternal Hypertension Uncle Asthma maternal Surgical History H/O eye surgery H/O nasal septoplasty H/O rhinoplasty [place] teeth extracted Social History adopted: No household members: significant other current occupational status: employed current occupation: [employer] current occupational exposures/hazards: No pets and animals: No history of recent travel: No Smoking Status: Former smoker quit date: 09/17/23 Electronic Cigarette Use: with nicotine alcohol intake: current alcohol intake frequency: holidays/special occasions only details: not while substance use type: does not use well-balanced diet: daily or most days caffeine: No eating out: 1-3 times/week during the past year weight has: remained stable what type of physical activity do you participate in: none marcin/yazdanism: None seatbelt use: always do you feel safe at home: Yes additional social history: Kika Malin-Printing Specialist History 1 Elective abortions Hx Para 0 Spontaneous abortions Hx # Term Pregnancies Ectopic pregnancies Hx # Pregnancies Multiple births # of living children Visit Details Expected Delivery Route/Plan Labor Preferences- CB/BF classes: enc labor support person: Kimo labor intervention preferences: [] pain management options preferred: cut cord/dad catch: yes : yes PP control planned: discussed discussed possible routes of delivery and associated risks: [] special requests: [] Plans Covid status: [] Flu vaccine: [] Tdap vaccine: done Rhogam: na LARC form signed: done Problem list reviewed and updated with the most current plan of care details and appropriate orders placed. Relevant counseling for the gestational age provided. Continue routine care and follow up unless otherwise noted in visit notes/problem list details OB Flowsheet Initial Weight: Not Recorded Date -?-?-?-?-?-?-?-?-?-?-?-?- EGA Weight BP Urine Prot -?-?-?-?-?-?-?-?-?-?-?-?- Glucose FHR FuHt Pres Dilation -?-?-?-?-?-?-?-?-?-?-?-?- Effaced St Visit Note 10/05/23 -?-?-?-?-?-?-?-?-?-?-?-?- 9w 0d 140 lb 8 oz 134/85 -?-?-?-?-?-?-?-?-?-?-?-?- 171 -?-?-?-?-?-?-?-?-?-?-?-?- JV- CRL consiste nt with prior ultrasound. wants nipt and carrier testing, 11/02/23 -?-?-?-?-?-?-?-?-?-?-?-?- 13w 0d 146 lb 8 oz 111/75 Nega tive -?-?-?-?-?-?-?-?-?-?-?-?- Negative -?-?-?-?-?-?-?-?-?-?-?-?- KW-no vb/crampin g. US ordered. movement and strong fht noted with handheld US. 3 small skin colored nodules noted on left labia. possible infected hair follicle VS (likely) genital wart. will continue to monitor 12/01/23 -?-?-?-?-?-?-?-?-?-?-?-?- 17w 1d 153 lb 4 oz 118/66 Nega tive -?-?-?-?-?-?-?-?-?-?-?-?- Negative 161 -?-?-?-?-?-?-?-?-?-?-?-?- MH-No Vb, LOF. H ad fall last week/did not land on abdomen, no bleeding. AFP today 12/30/23 -?-?-?-?-?-?-?-?-?-?-?-?- 21w 2d 164 lb 124/78 -?-?-?-?-?-?-?-?-?-?-?-?- 145 -?-?-?-?-?-?-?-?-?-?-?-?- - no vb crampi ng will look for afp results- hasn't come back yet may need redrawn, educated on this SM- no vb cramping afp negat jim 01/25/24 -?-?-?-?-?-?-?-?-?-?-?-?- 25w 0d 177 lb 2 oz 118/80 Nega tive -?-?-?-?-?-?-?-?-?-?-?-?- Negative 144 -?-?-?-?-?-?-?-?-?-?-?-?- -No VB, LOF. G ood FM. Still struggling with tachycardia. In ED 01/18 w normal evaluation. HR was 120-170 at that time. Will discuss with on management. 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 02/16/24 -?-?-?-?-?-?-?-?-?-?-?-?- 28w 1d 184 lb 126/82 Negative -?-?-?-?-?-?-?-?-?-?-?-?- Negative 150 28 -?-?-?-?-?-?-?-?-?-?-?-?- KW- no vb/lof/ct x. good fm. KW- no vb/lof/ctx. good fm. normal 28 week labs. TDAP and LARC today. has appt with pcp tomorrow for CT review and cardiology appt in 2 weeks-echo on 02/21. 03/01/24 -?-?-?-?-?-?-?-?-?-?-?-?- 30w 1d 181 lb 6 oz 110/82 Nega tive -?-?-?-?-?-?-?-?-?-?-?-?- Negative 147 30 -?-?-?-?-?-?-?-?-?-?-?-?- MH-No VB, LOF. G ood FM. In WP last pm for pain around umbilicus. Pain has lessened. Still with palpitations. Seeing Dr Pulido today 03/17/24 -?-?-?-?-?-?-?-?-?-?-?-?- 32w 3d 192 lb 132/82 Negative -?-?-?-?-?-?-?-?-?-?-?-?- Negative 145 32 0 -?-?-?-?-?-?-?-?-?-?-?-?- LC- no vb/lof/ct x. has had increased cramping with work. LC- no vb/lof/ctx. 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 normal here. mom is taking her bp. estefany from l&D getting her a cuff for home. She has nitrites in her urine today. sending for culture. pih labs (minus the prot: cr) to be drawn today. when uti is cleared up will do a prot:cr level. no severe features or hypertension at this time. 03/29/24 -?-?-?-?-?-?-?-?-?-?-?-?- 34w 1d 195 lb 2 oz 128/84 Nega tive -?-?-?-?-?-?-?-?--?-?-?-?- Negative 140 34 -?-?-?-?-?-?-?-?-?-?-?-?- JV- pt still has low grade headache. Is on macrobid but no protein in urine. Will order pih labs and take her off work. will watch closely for signs/symptoms of severe pre-e and likely deliver at 37 weeks. Physical Exam Const alert, oriented x3 and no apparent distress HEENT Head and Scalp: normocephalic and atraumatic Eyes EOMs intact bilaterally Neck full ROM and no lymphadenopathy Chest inspection of chest normal Resp normal respiratory effort GI GI Narrative: gravid, abdomen nontender, AGA Neuro no focal motor deficits Motor Exam: clonus absent NST FHR Rate Baby A Baseline: 140 Variability:: Moderate Accelerations:: 15 x 15 Decelerations:: None NST Reactive:: Yes FHR Category:: Category I Uterine Activity:: no regular Assessment & Plan (1) Gestational hypertension: (2) Supervision of high-risk : QUALIFIERS: Trimester: third trimester Qualified Code(s): O09.93 - Supervision of high risk , unspecified, third trimester COMMENT: PRR,, JUAN JOSE 05/09/24 oscar RomeroWalter Kimo (3) Anxiety and depression: (4) Tachycardia: COMMENT: Saw fast food team member, Try to r/o POTS. 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 , NIPT low risk. AFP: negative PLAN: Plan Admit overnight for steroid administration obtain growth ultrasound in the morning. Repeat urine protein within normal limits. Tylenol given with minimal improvement in headache. Observation and follow blood pressures to monitor trends. Reevaluate in AM. Charges/Coding Procedures Urinary/Genital 52xxx-59xxx: 00984-33 non-stress test Interp Multi Select Codes Visit Charges Office Visit/Consults: 50778 OV L3 Est 20min
[2024-03-30] MEDS: Nitrofurantoin Macrocrystals 100 MG Capsule PO (21:54)
[2024-03-31] VITALS (56 sets, daily range): BP systolic 117–148; BP diastolic 55–90; PULSE 82–117; RESP 12–24; TEMP 36.1–37.1; O2SAT 88–100
[2024-03-31] MEDS: Lactated Ringers 1,000 ML 999 ML IV (02:03)
--- NOTE | 2024-03-31 06:00 | US_ITS ---
STUDY: SECOND AND THIRD TRIMESTER OBSTETRICAL ULTRASOUND - LIMITED REASON FOR EXAM: Female, 23 years old evaluate growth LMP: August 06, 2023. PRIOR ULTRASOUND: Comparison is made with prior study November 23, 2023. TECHNIQUE: Transabdominal TECHNICAL QUALITY: Adequate. FINDINGS: There is a single intrauterine fetus. The fetus is in a cephalic presentation. There is demonstrated cardiac activity with a heart rate of 147 bpm. There is a normal amniotic fluid volume. The largest amniotic fluid pocket measures 5.1 cm. The amniotic fluid index (LORETTA) is 13.2 cm. The placenta is anterior in location and is not low lying. There are Grade 1 placental changes. BIOMETRY: BPD: 8.49 cm: 34 weeks, 1 days HC: 30.73 cm: 34 weeks, 2 days AC: 30.54 cm: 34 weeks, 3 days FL: 6.61 cm: 34 weeks, 0 days Age by LMP: 34 weeks, 3 days. JUAN JOSE by LMP: May 09, 2024. age by current US: 34 weeks, 1 days. JUAN JOSE by current US: May 11, 2024. Estimated weight: 2430 grams, +/- 364 grams, 45 percentile. US/OB Limited With Biometrics IMPRESSION: Single live intrauterine gestation with a mean gestational age of 34 weeks and 1 day. Electronically Signed: Clarence Reyes MD at 14:55 EDT ,
[2024-03-31 06:33] LABS: Absolute Lymphocyte Count 1.15 X10^3/uL (0.83-4.51); Absolute Neutrophil Count 11.5 X10^3/uL (2.0-7.7); Basophil# 0.02 X10^3/uL; Basophil% 0.2 % (0-1); Hematocrit 35.6 % (37-47); Hemoglobin 11.5 g/dL (12.0-15.0); Lymphocyte # 1.15 X10^3/ul (0.83-4.51); Lymphocyte % 8.7 % (19-41); Mean Corp Hgb Conc 32.3 g/dL (32-36); Mean Corpuscular Hgb 26.8 pg (27.0-32.0); Mean Platelet Vol. 11.4 fl (6.2-12.0); Monocyte# 0.46 X10^3/uL; Monocyte% 3.5 % (0-10); NRBC Flagged by Analyzer 0 % (0-5); Neutrophil # 11.48 X10^3/uL (2.7-7.7); Neutrophil % 86.5 % (47-70); Platelet Count 178 K/mm3 (150-450); RBC Distribution Width CV 15.9 % (11.6-14.6); RBC Distribution Width SD 47.5 fl (35.1-43.9); Red Blood Count 4.29 M/mm3 (4.2-5.4); White Blood Count 13.3 K/mm3 (4.4-11.0)
[2024-03-31 06:57] LABS: ALB/GLOB Ratio 0.6 RATIO (0.9-2.4); AST(SGOT) 13 U/L (15-37); Alanine Aminotransfer ALT/SGPT 11 U/L (13-56); Albumin, Serum 2.4 g/dL (3.2-5.0); Alkaline Phosphatase 114 U/L (45-117); Anion Gap 9 (5-15); BUN 9 mg/dL (7-18); BUN/Creat Ratio 14.3 RATIO (10-20); Calcium,Total 9.2 mg/dL (8.5-10.1); Chloride 107 mmol/L (98-107); Creatinine, Serum 0.63 mg/dL (0.55-1.02); EST Glomerular Filtration Rate 124 mL/min (>60); Est Glom Filt Rate - Afr Amer 150 mL/min (>60); Estimated Creatinine Clearance 144.03 ml/min; Globulin 4.2 g/dL (2.2-4.2); Glucose 131 mg/dL (74-106); Protein, Total 6.6 g/dL (6.4-8.2); Sodium Level 136 mmol/L (136-145)
[2024-03-31] MEDS: Magnesium Sulfate 4gm/100mL 4 GM/100 ML IV.SOLN. IV (10:25)
[2024-03-31] MEDS: Magnesium Sulfate 20 GM/500 ML BAG IV ×2 (10:53→21:01)
[2024-03-31] MEDS: Nitrofurantoin Macrocrystals 100 MG Capsule PO ×2 (11:10→21:48)
[2024-03-31 13:38] LABS: Syphilis Antibodies Non-reactive
[2024-03-31] MEDS: Acetaminophen 500 MG Tablet PO (14:35)
--- NOTE | 2024-03-31 15:10 | HP.PCM.OB_ITS ---
HPI - General General Date of Admission: 03/31/24 HPI Narrative HUMBERTO YOUNG, is a 23 y/o @ 34 weeks 3 days who presents to L&D for management of severe pre-eclampsia based on elevated bp's at home 150-160/80's-90's, and here in hospital 130's-140's/80's with moderate to severe ongoing headaches and some visual changes. PIH labs are normal and ultrasound shows growth 42nd% with normal [place]. After consultation with MFM, the plan is to deliver and give magnesium protection. Maternal Data Information JUAN JOSE Calculator Estimated Delivery Date Method Current Current Estimate 05/09/24 Ultrasound #1 34w 3d [facility] Medical History (Updated 03/31/24 @ 15:[address] Sandra Tian, DO) Headache Pre-eclampsia Palpitations Byron-Schlatter's disease Anemia affecting Chest pain Tachycardia Endometriosis Seasonal allergies Anxiety and depression Supervision of high-risk Hx of supraventricular tachycardia Home Medications ?Medication ?Instructions ?Recorded ?Last Taken ?Type PNV 153-FA 400 mcg-om3 35 mg-dha 1 tab PO DAILY 10/01/23 03/16/24 08:00 History 25 mg-epa 5 mg-fish oil chew tablet ferrous sulfate 137 mg (45 mg 137 mg PO DAILY 02/16/24 03/16/24 22:00 History iron) tablet,extended release (Slow Fe) nitrofurantoin 100 mg PO BID #14 caps 03/24/24 Unknown Rx monohydrate/macrocrystals 100 mg capsule (Macrobid) Allergy/AdvReac Type Severity Reaction Status Date / Time lidocaine Allergy Rash Verified 03/30/24 18:01 Family History Grandmother Asthma maternal Hypertension Uncle Asthma maternal Surgical History H/O eye surgery H/O nasal septoplasty H/O rhinoplasty [place] teeth extracted Social History adopted: No household members: significant other current occupational status: employed current occupation: [employer] current occupational exposures/hazards: No pets and animals: No history of recent travel: No Smoking Status: Former smoker quit date: 09/17/23 Electronic Cigarette Use: with nicotine alcohol intake: current alcohol intake frequency: holidays/special occasions only details: not while substance use type: does not use well-balanced diet: daily or most days caffeine: No eating out: 1-3 times/week during the past year weight has: remained stable what type of physical activity do you participate in: none marcin/yazidi: None seatbelt use: always do you feel safe at home: Yes additional social history: Fiance- [employer]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 History 1 Elective abortions Hx Para 0 Spontaneous abortions Hx # Term Pregnancies Ectopic pregnancies Hx # Pregnancies Multiple births # of living children Visit Details Expected Delivery Route/Plan Labor Preferences- CB/BF classes: enc labor support person: Kimo labor intervention preferences: [] pain management options preferred: cut cord/dad catch: yes : yes PP control planned: discussed discussed possible routes of delivery and associated risks: [] special requests: [] Plans Covid status: [] Flu vaccine: [] Tdap vaccine: done Rhogam: na LARC form signed: done Problem list reviewed and updated with the most current plan of care details and appropriate orders placed. Relevant counseling for the gestational age provided. Continue routine care and follow up unless otherwise noted in visit notes/problem list details OB Flowsheet Initial Weight: Not Recorded Date -?-?-?-?-?-?-?-?-?-?-?-?- EGA Weight BP Urine Prot -?-?-?-?-?-?-?-?-?-?-?-?- Glucose FHR FuHt Pres Dilation -?-?-?-?-?-?-?-?-?-?-?-?- Effaced St Visit Note 10/05/23 -?-?-?-?-?-?-?-?-?-?-?-?- 9w 0d 140 lb 8 oz 134/85 -?-?-?-?-?-?-?-?-?-?-?-?- 171 -?-?-?-?-?-?-?-?-?-?-?-?- JV- CRL consiste nt with prior ultrasound. wants nipt and carrier testing, 11/02/23 -?-?-?-?-?-?-?-?-?-?-?-?- 13w 0d 146 lb 8 oz 111/75 Nega tive -?-?-?-?-?-?-?-?-?-?-?-?- Negative -?-?-?-?-?-?-?-?-?-?-?-?- KW-no vb/crampin g. US ordered. movement and strong fht noted with handheld US. 3 small skin colored nodules noted on left labia. possible infected hair follicle VS (likely) genital wart. will continue to monitor 12/01/23 -?-?-?-?-?-?-?-?-?-?-?-?- 17w 1d 153 lb 4 oz 118/66 Nega tive -?-?-?-?-?-?-?-?-?-?-?-?- Negative 161 -?--?-?-?-?-?-?-?-?-?-?-?- -No Vb, LOF. H ad fall last week/did not land on abdomen, no bleeding. AFP today 12/30/23 -?-?-?-?-?-?-?-?-?-?-?-?- 21w 2d 164 lb 124/78 -?-?-?-?-?-?-?-?-?-?-?-?- 145 -?-?-?-?-?-?-?-?-?-?-?-?- SM- no vb crampi ng will look for afp results- hasn't come back yet may need redrawn, educated on this SM- no vb cramping afp negat jim 01/25/24 -?-?-?-?-?-?-?-?-?-?-?-?- 25w 0d 177 lb 2 oz 118/80 Nega tive -?-?-?-?-?-?-?-?-?-?-?-?- Negative 144 -?-?-?-?-?-?-?-?-?-?-?-?- MH-No VB, LOF. G ood FM. Still struggling with tachycardia. In ED 01/18 w normal evaluation. HR was 120-170 at that time. Will discuss with on management. 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 02/16/24 -?-?-?-?-?-?-?-?-?-?-?-?- 28w 1d 184 lb 126/82 Negative -?-?-?-?-?-?-?-?-?-?-?-?- Negative 150 28 -?-?-?-?-?-?-?-?-?-?-?-?- KW- no vb/lof/ct x. good fm. KW- no vb/lof/ctx. good fm. normal 28 week labs. TDAP and LARC today. has appt with pcp tomorrow for CT review and cardiology appt in 2 weeks-echo on 02/21. 03/01/24 -?-?-?-?-?-?-?-?-?-?-?-?- 30w 1d 181 lb 6 oz 110/82 Nega tive -?-?-?-?-?-?-?-?-?-?-?-?- Negative 147 30 -?-?-?-?-?-?-?-?-?-?-?-?- MH-No VB, LOF. G ood FM. In WP last pm for pain around umbilicus. Pain has lessened. Still with palpitations. Seeing Dr Pulido today 03/17/24 -?-?-?-?-?-?-?-?-?-?-?-?- 32w 3d 192 lb 132/82 Negative -?-?-?-?-?-?-?-?-?-?-?-?- Negative 145 32 0 -?-?-?-?-?-?-?--?-?-?-?-?- LC- no vb/lof/ct x. has had increased cramping with work. LC- no vb/lof/ctx. 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 07/26/24 -?-?-?-?-?-?-?-?-?-?-?-?- 33w 3d 196 lb 2 oz 130/82 Nega tive -?-?-?-?-?-?-?-?-?-?-?-?- Negative 144 33 0 -?--?-?-?-?-?-?-?-?-?-?-?- JV- pt still hav ing some contractions and has some elevations in pressures at home. normal here. mom is taking her bp. estefany from l&D getting her a cuff for home. She has nitrites in her urine today. sending for culture. pih labs (minus the prot: cr) to be drawn today. when uti is cleared up will do a prot:cr level. no severe features or hypertension at this time. 03/29/24 -?-?-?-?-?-?-?-?-?-?-?-?- 34w 1d 195 lb 2 oz 128/84 Nega tive -?-?-?-?-?-?-?-?-?-?-?-?- Negative 140 34 -?-?-?-?-?-?-?-?-?-?-?-?- JV- pt still has low grade headache. Is on macrobid but no protein in urine. Will order pih labs and take her off work. will watch closely for signs/symptoms of severe pre-e and likely deliver at 37 weeks. ROS Constitutional Constitutional: Denies change in weight, fatigue, fever(s), headache(s), poor appetite or weakness Eyes Eyes: Denies blurry vision, change in vision, seeing flashes or spots in vision ENT HEENT: Denies dizziness, headache(s), loss taste/smell or sore throat Cardiovascular Cardiovascular: Denies chest pain, dizziness, dyspnea, irregular heart rhythm, leg edema, palpitations, rapid heart rate or vomiting Respiratory/Chest Respiratory/Chest: Denies chest tightness, cough, dyspnea or breast pain Gastrointestinal Gastrointestinal: Denies abdominal pain, anorexia, constipation, cramping, diarrhea, hemorrhoids, vomiting or weight changes Genitourinary Genitourinary: Denies dysuria, flank pain, genital lesions, genital pain, urinary frequency or urinary urgency Musculoskeletal Musculoskeletal: Denies back pain, difficulty walking, joint pain, limited range of motion, muscle cramps or numbness Integumentary Integumentary: Denies lesions or unusual bruising Neurologic Neurologic: Denies abnormal movements, abnormal speech, dizziness, numbness, seizure-like activity or syncope Psychiatric Psychiatric: Denies anxiety, behavioral changes, change in appetite, change in libido, cognitive impairment, confusion, depression, difficulty concentrating, hallucinations or suicidal thoughts Endocrine Endocrinology: Denies excessive sweating, polydipsia or polyuria Hematologic/Lymphatic Hematologic/Lymphatic: Denies easy bleeding, easy bruising or lymphadenopathy Allergic/Immunologic Allergic/Immunologic: Denies itchy eyes, lip swelling, seasonal rhinorrhea, rhinitis, throat swelling, tongue swelling, eczemia, wheezing or asthma Vital Signs Vital Signs Vital Signs: 03/30/24 17:44 03/30/24 17:44 03/30/24 17:44 Temperature 97.3 F L Temperature Source Temporal Pulse Rate Respiratory Rate 16 Respiratory Effort Respiratory Depth Respiratory Pattern Blood Pressure Blood Pressure Mean BP Systolic BP Diastolic Blood Pressure Source Blood Pressure Position Blood Pressure Location Pulse Ox Oxygen Delivery Method 03/30/24 17:53 03/30/24 17:53 03/30/24 17:53 Temperature Temperature Source Pulse Rate 107 H Respiratory Rate Respiratory Effort Respiratory Depth Respiratory Pattern Blood Pressure 157/91 H Blood Pressure Mean BP Systolic 157 BP Diastolic 91 Blood Pressure Source Blood Pressure Position Blood Pressure Location Pulse Ox 100 Oxygen Delivery Method 03/30/24 17:58 03/30/24 17:58 03/30/24 18:03 Temperature Temperature Source Pulse Rate 99 111 H Respiratory Rate Respiratory Effort Respiratory Depth Respiratory Pattern Blood Pressure Blood Pressure Mean BP Systolic BP Diastolic Blood Pressure Source Blood Pressure Position Blood Pressure Location Pulse Ox 100 Oxygen Delivery Method 03/30/24 18:03 03/30/24 18:08 03/30/24 18:08 Temperature Temperature Source Pulse Rate 112 H Respiratory Rate Respiratory Effort Respiratory Depth Respiratory Pattern Blood Pressure 142/95 H Blood Pressure Mean BP Systolic 142 BP Diastolic 95 Blood Pressure Source Blood Pressure Position Blood Pressure Location Pulse Ox 100 Oxygen Delivery Method 03/30/24 18:08 03/30/24 18:13 03/30/24 18:13 Temperature Temperature Source Pulse Rate 103 H Respiratory Rate Respiratory Effort Respiratory Depth Respiratory Pattern Blood Pressure Blood Pressure Mean BP Systolic BP Diastolic Blood Pressure Source Blood Pressure Position Blood Pressure Location Pulse Ox 100 100 Oxygen Delivery Method 03/30/24 18:18 03/30/24 18:18 03/30/24 18:23 Temperature Temperature Source Pulse Rate 95 105 H Respiratory Rate Respiratory Effort Respiratory Depth Respiratory Pattern Blood Pressure Blood Pressure Mean BP Systolic BP Diastolic Blood Pressure Source Blood Pressure Position Blood Pressure Location Pulse Ox 100 Oxygen Delivery Method 03/30/24 18:23 03/30/24 18:28 03/30/24 18:28 Temperature Temperature Source Pulse Rate 102 H Respiratory Rate Respiratory Effort Respiratory Depth Respiratory Pattern Blood Pressure Blood Pressure Mean BP Systolic BP Diastolic Blood Pressure Source Blood Pressure Position Blood Pressure Location Pulse Ox 100 100 Oxygen Delivery Method 03/30/24 18:36 03/30/24 18:36 03/30/24 18:38 Temperature Temperature Source Pulse Rate 105 H Respiratory Rate Respiratory Effort Respiratory Depth Respiratory Pattern Blood Pressure 162/92 H Blood Pressure Mean BP Systolic 162 BP Diastolic 92 Blood Pressure Source Blood Pressure Position Blood Pressure Location Pulse Ox 99 Oxygen Delivery Method 03/30/24 18:38 03/30/24 18:41 03/30/24 18:41 Temperature Temperature Source Pulse Rate 94 115 H Respiratory Rate Respiratory Effort Respiratory Depth Respiratory Pattern Blood Pressure Blood Pressure Mean BP Systolic BP Diastolic Blood Pressure Source Blood Pressure Position Blood Pressure Location Pulse Ox 99 Oxygen Delivery Method 03/30/24 18:46 03/30/24 18:46 03/30/24 18:51 Temperature Temperature Source Pulse Rate 105 H 104 H Respiratory Rate Respiratory Effort Respiratory Depth Respiratory Pattern Blood Pressure Blood Pressure Mean BP Systolic BP Diastolic Blood Pressure Source Blood Pressure Position Blood Pressure Location Pulse Ox 100 Oxygen Delivery Method 03/30/24 18:51 03/30/24 18:54 03/30/24 18:54 Temperature Temperature Source Pulse Rate 105 H Respiratory Rate Respiratory Effort Respiratory Depth Respiratory Pattern Blood Pressure 140/99 H Blood Pressure Mean BP Systolic 140 BP Diastolic 99 Blood Pressure Source Blood Pressure Position Blood Pressure Location Pulse Ox 100 Oxygen Delivery Method 03/30/24 18:56 03/30/24 18:56 03/30/24 19:01 Temperature Temperature Source Pulse Rate 104 H 102 H Respiratory Rate Respiratory Effort Respiratory Depth Respiratory Pattern Blood Pressure Blood Pressure Mean BP Systolic BP Diastolic Blood Pressure Source Blood Pressure Position Blood Pressure Location Pulse Ox 99 Oxygen Delivery Method 03/30/24 19:01 03/30/24 19:06 03/30/24 19:06 Temperature Temperature Source Pulse Rate 105 H Respiratory Rate Respiratory Effort Respiratory Depth Respiratory Pattern Blood Pressure Blood Pressure Mean BP Systolic BP Diastolic Blood Pressure Source Blood Pressure Position Blood Pressure Location Pulse Ox 100 100 Oxygen Delivery Method 03/30/24 19:08 03/30/24 19:08 03/30/24 19:11 Temperature Temperature Source Pulse Rate 104 H 107 H Respiratory Rate Respiratory Effort Respiratory Depth Respiratory Pattern Blood Pressure 142/93 H Blood Pressure Mean BP Systolic 142 BP Diastolic 93 Blood Pressure Source Blood Pressure Position Blood Pressure Location Pulse Ox Oxygen Delivery Method 03/30/24 19:11 03/30/24 19:16 03/30/24 19:16 Temperature Temperature Source Pulse Rate 98 Respiratory Rate Respiratory Effort Respiratory Depth Respiratory Pattern Blood Pressure Blood Pressure Mean BP Systolic BP Diastolic Blood Pressure Source Blood Pressure Position Blood Pressure Location Pulse Ox 100 100 Oxygen Delivery Method 03/30/24 19:21 03/30/24 19:21 03/30/24 19:23 Temperature Temperature Source Pulse Rate 98 Respiratory Rate Respiratory Effort Respiratory Depth Respiratory Pattern Blood Pressure 134/86 H Blood Pressure Mean BP Systolic 134 BP Diastolic 86 Blood Pressure Source Blood Pressure Position Blood Pressure Location Pulse Ox 99 Oxygen Delivery Method 03/30/24 19:23 03/30/24 19:26 03/30/24 19:26 Temperature Temperature Source Pulse Rate 108 H 98 Respiratory Rate Respiratory Effort Respiratory Depth Respiratory Pattern Blood Pressure Blood Pressure Mean BP Systolic BP Diastolic Blood Pressure Source Blood Pressure Position Blood Pressure Location Pulse Ox 99 Oxygen Delivery Method 03/30/24 19:31 03/30/24 19:31 03/30/24 19:36 Temperature Temperature Source Pulse Rate 113 H 103 H Respiratory Rate Respiratory Effort Respiratory Depth Respiratory Pattern Blood Pressure Blood Pressure Mean BP Systolic BP Diastolic Blood Pressure Source Blood Pressure Position Blood Pressure Location Pulse Ox 100 Oxygen Delivery Method 03/30/24 19:36 03/30/24 19:38 03/30/24 19:38 Temperature Temperature Source Pulse Rate 89 Respiratory Rate Respiratory Effort Respiratory Depth Respiratory Pattern Blood Pressure 139/86 H Blood Pressure Mean BP Systolic 139 BP Diastolic 86 Blood Pressure Source Blood Pressure Position Blood Pressure Location Pulse Ox 99 Oxygen Delivery Method 03/30/24 19:41 03/30/24 19:41 03/30/24 19:46 Temperature Temperature Source Pulse Rate 102 H 108 H Respiratory Rate Respiratory Effort Respiratory Depth Respiratory Pattern Blood Pressure Blood Pressure Mean BP Systolic BP Diastolic Blood Pressure Source Blood Pressure Position Blood Pressure Location Pulse Ox 99 Oxygen Delivery Method 03/30/24 19:46 03/30/24 19:51 03/30/24 19:51 Temperature Temperature Source Pulse Rate 95 Respiratory Rate Respiratory Effort Respiratory Depth Respiratory Pattern Blood Pressure Blood Pressure Mean BP Systolic BP Diastolic Blood Pressure Source Blood Pressure Position Blood Pressure Location Pulse Ox 100 99 Oxygen Delivery Method 03/30/24 19:52 03/30/24 19:52 03/30/24 19:53 Temperature Temperature Source Pulse Rate 102 H Respiratory Rate Respiratory Effort Respiratory Depth Respiratory Pattern Blood Pressure 131/76 H Blood Pressure Mean BP Systolic 131 BP Diastolic 76 Blood Pressure Source Blood Pressure Position Blood Pressure Location Pulse Ox 90 Oxygen Delivery Method 03/30/24 19:53 03/30/24 19:56 03/30/24 19:56 Temperature Temperature Source Pulse Rate 101 H 108 H Respiratory Rate Respiratory Effort Respiratory Depth Respiratory Pattern Blood Pressure Blood Pressure Mean BP Systolic BP Diastolic Blood Pressure Source Blood Pressure Position Blood Pressure Location Pulse Ox 100 Oxygen Delivery Method 03/30/24 20:01 03/30/24 20:01 03/30/24 20:06 Temperature Temperature Source Pulse Rate 99 112 H Respiratory Rate Respiratory Effort Respiratory Depth Respiratory Pattern Blood Pressure Blood Pressure Mean BP Systolic BP Diastolic Blood Pressure Source Blood Pressure Position Blood Pressure Location Pulse Ox 100 Oxygen Delivery Method 03/30/24 20:06 03/30/24 20:08 03/30/24 20:08 Temperature Temperature Source Pulse Rate 104 H Respiratory Rate Respiratory Effort Respiratory Depth Respiratory Pattern Blood Pressure 131/74 H Blood Pressure Mean BP Systolic 131 BP Diastolic 74 Blood Pressure Source Blood Pressure Position Blood Pressure Location Pulse Ox 99 Oxygen Delivery Method 03/30/24 20:11 03/30/24 20:11 03/30/24 20:12 Temperature Temperature Source Pulse Rate 100 101 H Respiratory Rate Respiratory Effort Respiratory Depth Respiratory Pattern Blood Pressure Blood Pressure Mean BP Systolic BP Diastolic Blood Pressure Source Blood Pressure Position Blood Pressure Location Pulse Ox 99 Oxygen Delivery Method 03/30/24 20:12 03/30/24 21:24 03/30/24 21:24 Temperature Temperature Source Pulse Rate 97 Respiratory Rate Respiratory Effort Respiratory Depth Respiratory Pattern Blood Pressure 133/75 H Blood Pressure Mean BP Systolic 133 BP Diastolic 75 Blood Pressure Source Blood Pressure Position Blood Pressure Location Pulse Ox 92 Oxygen Delivery Method 03/30/24 21:24 03/30/24 21:24 03/30/24 21:24 Temperature 97.9 F Temperature Source Temporal Pulse Rate Respiratory Rate 16 Respiratory Effort Respiratory Depth Respiratory Pattern Blood Pressure Blood Pressure Mean BP Systolic BP Diastolic Blood Pressure Source Blood Pressure Position Blood Pressure Location Pulse Ox Oxygen Delivery Method 03/30/24 22:24 03/30/24 22:24 03/30/24 22:24 Temperature 97.4 F L Temperature Source Temporal Pulse Rate Respiratory Rate 16 Respiratory Effort Respiratory Depth Respiratory Pattern Blood Pressure Blood Pressure Mean BP Systolic BP Diastolic Blood Pressure Source Blood Pressure Position Blood Pressure Location Pulse Ox Oxygen Delivery Method 03/30/24 22:25 03/30/24 22:25 03/30/24 22:25 Temperature Temperature Source Pulse Rate 163 H Respiratory Rate Respiratory Effort Respiratory Depth Respiratory Pattern Blood Pressure 106/56 L Blood Pressure Mean BP Systolic 106 BP Diastolic 56 Blood Pressure Source Blood Pressure Position Blood Pressure Location Pulse Ox 93 Oxygen Delivery Method 03/30/24 22:25 03/31/24 00:10 03/31/24 00:10 Temperature Temperature Source Temporal Pulse Rate 86 104 H Respiratory Rate Respiratory Effort Respiratory Depth Respiratory Pattern Blood Pressure Blood Pressure Mean BP Systolic BP Diastolic Blood Pressure Source Blood Pressure Position Blood Pressure Location Pulse Ox Oxygen Delivery Method 03/31/24 00:10 03/31/24 00:10 03/31/24 00:10 Temperature 98.0 F Temperature Source Pulse Rate Respiratory Rate 16 Respiratory Effort Respiratory Depth Respiratory Pattern Blood Pressure Blood Pressure Mean BP Systolic BP Diastolic Blood Pressure Source Blood Pressure Position Blood Pressure Location Pulse Ox 98 Oxygen Delivery Method 03/31/24 00:11 03/31/24 00:11 03/31/24 01:01 Temperature Temperature Source Temporal Pulse Rate 96 Respiratory Rate Respiratory Effort Respiratory Depth Respiratory Pattern Blood Pressure 137/80 H Blood Pressure Mean BP Systolic 137 BP Diastolic 80 Blood Pressure Source Blood Pressure Position Blood Pressure Location Pulse Ox Oxygen Delivery Method 03/31/24 01:01 03/31/24 01:01 03/31/24 01:02 Temperature 97.4 F L Temperature Source Pulse Rate Respiratory Rate 16 Respiratory Effort Respiratory Depth Respiratory Pattern Blood Pressure 139/83 H Blood Pressure Mean BP Systolic 139 BP Diastolic 83 Blood Pressure Source Blood Pressure Position Blood Pressure Location Pulse Ox Oxygen Delivery Method 03/31/24 01:02 03/31/24 02:02 03/31/24 02:02 Temperature Temperature Source Pulse Rate 83 105 H Respiratory Rate Respiratory Effort Respiratory Depth Respiratory Pattern Blood Pressure Blood Pressure Mean BP Systolic BP Diastolic Blood Pressure Source Blood Pressure Position Blood Pressure Location Pulse Ox 99 Oxygen Delivery Method 03/31/24 02:06 03/31/24 02:06 03/31/24 02:06 Temperature 97.4 F L Temperature Source Temporal Pulse Rate Respiratory Rate 16 Respiratory Effort Respiratory Depth Respiratory Pattern Blood Pressure Blood Pressure Mean BP Systolic BP Diastolic Blood Pressure Source Blood Pressure Position Blood Pressure Location Pulse Ox Oxygen Delivery Method 03/31/24 02:07 03/31/24 02:07 03/31/24 03:07 Temperature Temperature Source Pulse Rate 87 Respiratory Rate Respiratory Effort Respiratory Depth Respiratory Pattern Blood Pressure 136/87 H 136/88 H Blood Pressure Mean BP Systolic 136 136 BP Diastolic 87 88 Blood Pressure Source Blood Pressure Position Blood Pressure Location Pulse Ox Oxygen Delivery Method 03/31/24 03:07 03/31/24 03:08 03/31/24 03:08 Temperature Temperature Source Temporal Pulse Rate 86 Respiratory Rate 16 Respiratory Effort Respiratory Depth Respiratory Pattern Blood Pressure Blood Pressure Mean BP Systolic BP Diastolic Blood Pressure Source Blood Pressure Position Blood Pressure Location Pulse Ox Oxygen Delivery Method 03/31/24 03:08 03/31/24 04:13 03/31/24 04:13 Temperature 97.4 F L Temperature Source Pulse Rate 87 Respiratory Rate Respiratory Effort Respiratory Depth Respiratory Pattern Blood Pressure Blood Pressure Mean BP Systolic BP Diastolic Blood Pressure Source Blood Pressure Position Blood Pressure Location Pulse Ox 99 Oxygen Delivery Method 03/31/24 04:13 03/31/24 04:13 03/31/24 04:13 Temperature 97.0 F L Temperature Source Temporal Pulse Rate Respiratory Rate 16 Respiratory Effort Respiratory Depth Respiratory Pattern Blood Pressure Blood Pressure Mean BP Systolic BP Diastolic Blood Pressure Source Blood Pressure Position Blood Pressure Location Pulse Ox Oxygen Delivery Method 03/31/24 04:14 03/31/24 04:14 03/31/24 06:00 Temperature Temperature Source Pulse Rate 100 94 Respiratory Rate Respiratory Effort Respiratory Depth Respiratory Pattern Blood Pressure 144/89 H Blood Pressure Mean BP Systolic 144 BP Diastolic 89 Blood Pressure Source Blood Pressure Position Blood Pressure Location Pulse Ox Oxygen Delivery Method 03/31/24 06:00 03/31/24 06:01 03/31/24 06:01 Temperature Temperature Source Pulse Rate 88 Respiratory Rate Respiratory Effort Respiratory Depth Respiratory Pattern Blood Pressure 137/87 H Blood Pressure Mean BP Systolic 137 BP Diastolic 87 Blood Pressure Source Blood Pressure Position Blood Pressure Location Pulse Ox 99 Oxygen Delivery Method 03/31/24 07:55 03/31/24 07:55 03/31/24 07:56 Temperature Temperature Source Pulse Rate 100 Respiratory Rate Respiratory Effort Respiratory Depth Respiratory Pattern Blood Pressure 141/84 H Blood Pressure Mean BP Systolic 141 BP Diastolic 84 Blood Pressure Source Blood Pressure Position Blood Pressure Location Pulse Ox 98 Oxygen Delivery Method 03/31/24 07:56 03/31/24 07:56 03/31/24 07:56 Temperature Temperature Source Temporal Pulse Rate 101 H 95 Respiratory Rate Respiratory Effort Respiratory Depth Respiratory Pattern Blood Pressure Blood Pressure Mean BP Systolic BP Diastolic Blood Pressure Source Blood Pressure Position Blood Pressure Location Pulse Ox Oxygen Delivery Method 03/31/24 07:56 03/31/24 07:56 03/31/24 07:56 Temperature 98.2 F Temperature Source Pulse Rate Respiratory Rate 24 H Respiratory Effort Respiratory Depth Respiratory Pattern Blood Pressure Blood Pressure Mean BP Systolic BP Diastolic Blood Pressure Source Blood Pressure Position Blood Pressure Location Pulse Ox 98 Oxygen Delivery Method 03/31/24 09:30 03/31/24 09:30 03/31/24 09:30 Temperature Temperature Source Temporal Pulse Rate 86 Respiratory Rate 22 H Respiratory Effort Respiratory Depth Respiratory Pattern Blood Pressure Blood Pressure Mean BP Systolic BP Diastolic Blood Pressure Source Blood Pressure Position Blood Pressure Location Pulse Ox Oxygen Delivery Method 03/31/24 09:30 03/31/24 09:30 03/31/24 09:31 Temperature 98.4 F Temperature Source Pulse Rate Respiratory Rate Respiratory Effort Respiratory Depth Respiratory Pattern Blood Pressure 133/76 H Blood Pressure Mean BP Systolic 133 BP Diastolic 76 Blood Pressure Source Blood Pressure Position Blood Pressure Location Pulse Ox 99 Oxygen Delivery Method 03/31/24 09:31 03/31/24 09:32 03/31/24 09:32 Temperature Temperature Source Pulse Rate 96 86 Respiratory Rate Respiratory Effort Respiratory Depth Respiratory Pattern Blood Pressure Blood Pressure Mean BP Systolic BP Diastolic Blood Pressure Source Blood Pressure Position Blood Pressure Location Pulse Ox 98 Oxygen Delivery Method 03/31/24 09:53 03/31/24 09:53 03/31/24 10:26 Temperature 98.8 F Temperature Source Temporal Temporal Temporal Pulse Rate 98 Respiratory Rate 12 Respiratory Effort Normal Non-Labored Respiratory Depth Normal Respiratory Pattern Normal Blood Pressure 140/83 H Blood Pressure Mean 102 BP Systolic BP Diastolic Blood Pressure Source Monitor Blood Pressure Position Semi-Fowlers Blood Pressure Location Left Arm Pulse Ox 99 Oxygen Delivery Method Room Air 03/31/24 10:26 03/31/24 10:36 03/31/24 10:36 Temperature 98.4 F Temperature Source Temporal Pulse Rate 103 H 108 H Respiratory Rate 12 Respiratory Effort Respiratory Depth Respiratory Pattern Blood Pressure 137/87 H 140/83 H Blood Pressure Mean 103 BP Systolic 140 BP Diastolic 83 Blood Pressure Source Monitor Blood Pressure Position Semi-Fowlers Blood Pressure Location Left Arm Pulse Ox 98 Oxygen Delivery Method Room Air 03/31/24 10:36 03/31/24 10:36 03/31/24 10:53 Temperature Temperature Source Temporal Pulse Rate 101 H Respiratory Rate Respiratory Effort Respiratory Depth Respiratory Pattern Blood Pressure Blood Pressure Mean BP Systolic BP Diastolic Blood Pressure Source Blood Pressure Position Blood Pressure Location Pulse Ox 98 Oxygen Delivery Method 03/31/24 10:53 03/31/24 11:03 03/31/24 11:03 Temperature 98.4 F Temperature Source Temporal Pulse Rate 95 99 Respiratory Rate 16 Respiratory Effort Respiratory Depth Respiratory Pattern Blood Pressure 132/90 H Blood Pressure Mean 104 BP Systolic BP Diastolic Blood Pressure Source Monitor Blood Pressure Position Semi-Fowlers Blood Pressure Location Left Arm Pulse Ox 98 99 Oxygen Delivery Method Room Air 03/31/24 11:11 03/31/24 11:11 03/31/24 11:11 Temperature Temperature Source Temporal Pulse Rate 104 H Respiratory Rate Respiratory Effort Respiratory Depth Respiratory Pattern Blood Pressure 137/87 H Blood Pressure Mean BP Systolic 137 BP Diastolic 87 Blood Pressure Source Blood Pressure Position Blood Pressure Location Pulse Ox Oxygen Delivery Method 03/31/24 11:11 03/31/24 11:13 03/31/24 11:13 Temperature 98.7 F Temperature Source Temporal Pulse Rate 95 100 Respiratory Rate 16 Respiratory Effort Respiratory Depth Respiratory Pattern Blood Pressure 134/85 H Blood Pressure Mean 101 BP Systolic BP Diastolic Blood Pressure Source Monitor Blood Pressure Position Semi-Fowlers Blood Pressure Location Left Arm Pulse Ox 99 98 Oxygen Delivery Method Room Air 03/31/24 11:16 03/31/24 11:16 03/31/24 11:18 Temperature Temperature Source Pulse Rate 104 H 101 H Respiratory Rate Respiratory Effort Respiratory Depth Respiratory Pattern Blood Pressure 132/90 H Blood Pressure Mean BP Systolic 132 BP Diastolic 90 Blood Pressure Source Blood Pressure Position Blood Pressure Location Pulse Ox Oxygen Delivery Method 03/31/24 11:18 03/31/24 11:23 03/31/24 11:23 Temperature Temperature Source Pulse Rate 93 Respiratory Rate Respiratory Effort Respiratory Depth Respiratory Pattern Blood Pressure Blood Pressure Mean BP Systolic BP Diastolic Blood Pressure Source Blood Pressure Position Blood Pressure Location Pulse Ox 98 98 Oxygen Delivery Method 03/31/24 11:32 03/31/24 11:32 03/31/24 11:32 Temperature Temperature Source Pulse Rate 93 Respiratory Rate Respiratory Effort Respiratory Depth Respiratory Pattern Blood Pressure 134/85 H Blood Pressure Mean BP Systolic 134 BP Diastolic 85 Blood Pressure Source Blood Pressure Position Blood Pressure Location Pulse Ox 98 Oxygen Delivery Method 03/31/24 11:41 03/31/24 11:41 03/31/24 12:41 Temperature 98.6 F Temperature Source Temporal Temporal Pulse Rate 95 84 Respiratory Rate 16 Respiratory Effort Normal Respiratory Depth Normal Respiratory Pattern Normal Blood Pressure 134/85 H Blood Pressure Mean 101 BP Systolic BP Diastolic Blood Pressure Source Monitor Blood Pressure Position Semi-Fowlers Blood Pressure Location Left Arm Pulse Ox 98 Oxygen Delivery Method Room Air 03/31/24 12:41 03/31/24 12:41 03/31/24 12:41 Temperature 98.6 F Temperature Source Temporal Temporal Pulse Rate 84 Respiratory Rate 16 Respiratory Effort Respiratory Depth Respiratory Pattern Blood Pressure 133/86 H Blood Pressure Mean 101 BP Systolic BP Diastolic Blood Pressure Source Monitor Blood Pressure Position Semi-Fowlers Blood Pressure Location Left Arm Pulse Ox 97 97 Oxygen Delivery Method Room Air 03/31/24 12:48 03/31/24 12:48 03/31/24 13:45 Temperature Temperature Source Temporal Pulse Rate 96 Respiratory Rate Respiratory Effort Respiratory Depth Respiratory Pattern Blood Pressure 133/86 H Blood Pressure Mean BP Systolic 133 BP Diastolic 86 Blood Pressure Source Blood Pressure Position Blood Pressure Location Pulse Ox Oxygen Delivery Method 03/31/24 13:45 03/31/24 13:49 03/31/24 13:49 Temperature 98.1 F Temperature Source Temporal Pulse Rate 91 87 Respiratory Rate 16 Respiratory Effort Normal Non-Labored Respiratory Depth Normal Respiratory Pattern Normal Blood Pressure 132/77 H 132/77 H Blood Pressure Mean 95 BP Systolic 132 BP Diastolic 77 Blood Pressure Source Monitor Blood Pressure Position Semi-Fowlers Blood Pressure Location Left Arm Pulse Ox 97 Oxygen Delivery Method Room Air 03/31/24 13:51 03/31/24 13:51 03/31/24 14:45 Temperature Temperature Source Temporal Pulse Rate 91 Respiratory Rate Respiratory Effort Respiratory Depth Respiratory Pattern Blood Pressure Blood Pressure Mean BP Systolic BP Diastolic Blood Pressure Source Blood Pressure Position Blood Pressure Location Pulse Ox 96 Oxygen Delivery Method 03/31/24 14:45 03/31/24 14:58 03/31/24 14:58 Temperature 98.5 F Temperature Source Temporal Pulse Rate 88 82 Respiratory Rate 16 Respiratory Effort Respiratory Depth Respiratory Pattern Blood Pressure 136/84 H 136/84 H Blood Pressure Mean 101 BP Systolic 136 BP Diastolic 84 Blood Pressure Source Monitor Blood Pressure Position Semi-Fowlers Blood Pressure Location Left Arm Pulse Ox 98 Oxygen Delivery Method Room Air 03/31/24 14:58 Temperature Temperature Source Pulse Rate Respiratory Rate Respiratory Effort Respiratory Depth Respiratory Pattern Blood Pressure Blood Pressure Mean BP Systolic BP Diastolic Blood Pressure Source Blood Pressure Position Blood Pressure Location Pulse Ox 96 Oxygen Delivery Method Weight Weight: 196 lb 6.4 oz Body Mass Index (BMI) 35.9 Physical Exam Const alert, oriented x3, no apparent distress and healthy appearing General Appearance: cooperative; Negative for anxious HEENT normocephalic Face and Sinus: normal facial exam Eyes EOMs intact bilaterally and no scleral icterus General Eye: normal appearance of both eyes Neck full ROM and supple Lymph Lymphatic: no lymphadenopathy noted Chest Chest: abnormal inspection of the chest Resp normal respiratory effort Effort and Inspection: able to speak in complete sentences Cardio regular rate GI soft to palpation and non-tender Inspection: gravid Palpation: soft; Negative for tender Back/Spine no CVA tenderness Extremity normal to inspection, full ROM and no clubbing, cyanosis or edema General Extremity: Negative for calf tenderness or edema Skin Lesions: no lesions Rashes: no rashes Psych mental status grossly normal Labs Labs Labs: Blood Type O POSITIVE Antibody Screen NEGATIVE Hct 35.6 % (37-47) L Hgb 11.5 g/dL (12.0-15.0) L Obstetrics Ultrasound Syphilis Total Ab Non-reactive Rubella IgG Antibody Reactive (Nonreactive) Hep Bs Antigen Non-Reactive (Nonreactive) Hepatitis C Antibody Non-Reactive (Nonreactive) Chlamydia DNA (THOMAS) Negative (Negative) N.gonorrhoeae DNA (THOMAS) Negative (Negative) HIV 1&2 Antibody Non-Reactive (Nonreactive) Glucose 1 Hr 50 gm 101 mg/dL (70-140) Miscellaneous Test Assessment & Plan (1) Severe pre-eclampsia: (2) : QUALIFIERS: Weeks of gestation: 34 weeks Qualified Code(s): Z3A.34 - 34 weeks gestation of COMMENT: Anatomy normal, carrier neg. , NIPT low risk. 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 May start metoprolol 3rd trim if problematic (9) Anxiety and depression: (10) Supervision of high-risk : QUALIFIERS: Trimester: third trimester Qualified Code(s): O09.93 - Supervision of high risk , unspecified, third trimester COMMENT: PRR,, JUAN JOSE 05/09/24 oscar Malin PLAN: Plan Patient presents IOL, plan management for with cytotec tonight after her 2nd dose of celestone pitocin/AROM. magnesium sulfate now Pain management:unable to have epidural due to lidocaine allergy. She will need general anesthesia if requires section. Patient asked if she could have a primary section. I have strongly recommended trial of labor first. we discussed trying nitrous gas and position changes/massage, etc. GBS pending. Management of any complications: as above. I have reviewed the [facility] and made any clinically relevant updates.
[2024-03-31] MEDS: Betamethasone/Betamethasone 30 MG/5 ML Vial 12 MG IM (18:55)
[2024-03-31] MEDS: Lactated Ringers 1,000 ML 15 ML IV (19:50)
[2024-03-31] MEDS: miSOPROStol 25 MCG TABLET VAGINAL (20:13)
[2024-04-01] VITALS (103 sets, daily range): BP systolic 102–141; BP diastolic 51–93; PULSE 71–118; RESP 14–17; TEMP 36.1–37.1; O2SAT 90–100
[2024-04-01] MEDS: miSOPROStol 25 MCG TABLET VAGINAL ×2 (00:15→04:18)
[2024-04-01] MEDS: Magnesium Sulfate 20 GM/500 ML BAG IV (06:47)
--- NOTE | 2024-04-01 06:54 | PCM.PN.BLA ---
Progress Note Nurse reports that patient has slept all night. She remains on 2 grams of magnesium sulfate. Patient is awake in bed laying on her left side. She reports that she slept well and her headache is better today. BPs: low range this am. 109/51 when asleep. after talking with her about plan her blood pressure went up to 137/80. current tracing: FHT: Moderate variability reactive no decelerations category I tracing [place]: no Contractions A/P: decrease dose of mag to 1g/hr. MFM recommends continuing with plan as she met criteria from the beginning.
--- NOTE | 2024-04-01 08:19 | NURSING ---
Dr. Tian is ok with patient showering quickly with RN assistance.
[2024-04-01] MEDS: Acetaminophen 500 MG Tablet PO (12:20)
[2024-04-01] MEDS: miSOPROStol 50 MCG TABLET VAGINAL (12:20)
[2024-04-01] MEDS: miSOPROStol 50 MCG TABLET PO (12:20)
--- NOTE | 2024-04-01 16:33 | PCM.PN.BLA ---
Progress Note Nurse called to review tracing and concern for decelerations. Patient is breathing through contractions and states that contraction pain is a 7-8/10. She has received 3 doses of 25 mcg cytotec and 1 dose of 50 mcg cytotec. current tracing: FHT: 150 Moderate variability with accelerations. 8 spontaneous decelerations noted in the last 2.5 hrs. overall however category 2 with more reassuring than non-reassuring moments. [place]: q1-2 min Contractions cx: closed thick and high. reviewed tracing abnormalities since last note: now with spontaneous decelerations A/P: 1. severe pre-eclampsia 2. decelerations/ intolerance to labor and remote from delivery 3. option is to give patient more time to dilate as the tracing looks overall reassuring. Patient is allergic to lidocaine and can not get an epidural. She does not want to continue with the pain she is in and is requesting a section at this time.
[2024-04-01] MEDS: Sodium Citrate/Citric Acid 30 ML UDC PO (16:38)
[2024-04-01] MEDS: Cefazolin 2 GM in 0.9% Normal Saline (100mL Bag) 100 ML IV (17:00)
--- NOTE | 2024-04-01 17:14 | PLAC_PTH ---
PATIENT: HUMBERTO YOUNG LOC: [facility] U#:[id number] AGE/SX: 23/F ROOM: WP002 RE03/31/[address]: Binta Celaya CNM : 2000 BED: 1 DIS: 04/05/2024 SPEC #: [id number] RECD: 04/01/24 19:23 STATUS: HOLLY REEunice #: [id number] MARTY: 04/01/24 17:[address]: Binta Celaya DEPT: SURGICAL PATHOLOGY RECD BY: Marleni Juarez ENTERED: 04/03/24 09:16 SP TYPE: PLACENTA OTHR DR: DO Dr. Sandra Werner DO Tissues: Placenta, NOS Procedures: Surgery Specimen Level V HEADER OPERATION: Primary section PRE-OP DIAGNOSIS: Severe pre-eclampsia TISSUE SUBMITTED: Placenta MICROSCOPIC DIAGNOSIS Placenta: Placental disc - third trimester placenta (500 gm). -Focal area of intraparenchymal hemorrhage (0.5cm in greatest dimension). - Focal areas of large immature villi. - Focal increased calcifications. Membranes - no pathologic diagnosis. Umbilical cord - three blood vessels and no pathologic diagnosis. SJ: 04/04/2024 COMMENT Case has been reviewed in consultation with Dr. Aguilar who concurs with the above diagnosis. IDC:AM MICROSCOPIC DESCRIPTION Slides are reviewed. GROSS DESCRIPTION SPECIMEN: PLACENTA / CLINICAL INFORMATION: A. Weight: 2.54 kg B. Gestational Age:34 weeks C. Sex: Male PLACENTAL WEIGHT (POST FIXATION): 500 gm PLACENTAL DIMENSIONS: 17.5 x 17.0 x 3.0 cm PLACENTAL SHAPE: Usual ovoid PLACENTAL WEIGHT FOR GESTATIONAL AGE: over 99th percentile. MEMBRANES - Present A. Insertion: Marginal B. Site of rupture from edge: ruptured at the margin of placental disc C. Color of membrane: Camargo-monroy D. Abnormalities: None UMBILICAL CORD - Present A. Color: [place]argo-monroy B. Insertion: Central C. Length: 44.0 cm D. Diameter: 1.5 cm E. Number of vessels: Three F. Abnormalities: None PLACENTAL DISC - Present A. Color of surface: [place]argo-monroy B. surface abnormalities: None C. Maternal cotyledons: Intact with minimal tears D. Attached retro placental clot: No clot E. Cut surface: Dark red and spongy F. Lesions: None G. Separate clot: Absent SECTIONS SUBMITTED: (6 cassettes) 1. Membrane roll 2. Cord, maternal end 3. Cord, end 4. Placental disc, and maternal surfaces 5. Placental disc, and maternal surfaces 6. Placental disc, and maternal surfaces CRUZ/ 04/03/2024 TC:5 CPT: 59853
[2024-04-01] MEDS: Carboprost Tromethamine 250 MCG/ML Ampul IM (17:18)
--- NOTE | 2024-04-01 17:57 | OP.PCM_ITS ---
Assessment & Plan (1) heart rate decelerations affecting management of mother: (2) Failure of cervical dilation: (3) Severe pre-eclampsia: (4) Gestational hypertension: (5) : QUALIFIERS: Weeks of gestation: 34 weeks Qualified Code(s): Z3A.34 - 34 weeks gestation of COMMENT: Anatomy normal, carrier neg. , NIPT low risk. 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 May start metoprolol 3rd trim if problematic (12) Anxiety and depression: (13) Supervision of high-risk : QUALIFIERS: Trimester: third trimester Qualified Code(s): O09.93 - Supervision of high risk , unspecified, third trimester COMMENT: PRR,, JUAN JOSE 05/09/24 boy Yamil Malin Maternal Data Information JUAN JOSE Calculator Estimated Delivery Date Method Current WG Current Estimate 05/09/24 Ultrasound #1 34w 4d Final JUAN JOSE: 05/09/24 Final JUAN JOSE Source: US <20 weeks Gestational age: 34 weeks 4 days [place] Doctor Who Attended Delivery: Krysta Antonio Details Operative Information Date of Procedure: 04/01/24 Pre-Operative Diagnosis: @ 34 weeks 4 days, pre-eclampsia with severe features, heart rate decelerations, failure to dilate Post-Operative Diagnosis: @ 34 weeks 4 days, pre-eclampsia with severe features, heart rate decelerations, failure to dilate Classification: CHIOMA Procedure Type: low transverse parts clerk plant maintenance #1: Binta Celaya Type of Anesthesia: General Anesthesiologist: Cristo Jones Antibiotic Given: Ancef 2 grams IV x1 Estimated Blood Loss: 600cc Procedure Start Time: 17:13 Procedure Stop Time: 17:44 Time of Delivery: 17:14 Findings Description of Procedure: Reason for surgery: This is a 23 y/o @ 34 weeks 4 days who has been complaining of worsening headaches for the last week. She was given a hospital blood pressure monitor and blood pressures at home were in the severe range. The decision was made to induce labor. Labor was initiated with 25 mcg of cytotec at 7:30 pm on 03/31/24. This was given 3 times followed by a 50 mcg dose. after 22 hours the cervix remained closed/thick/ and high. decelerations were noted but overall reassuring. The patient was given the option to continue monitoring and declined. She reported her contraction pain a /10. She was unable to receive epidural anesthesia due to a severe lidocaine allergy. Procedure: The patient was brought to the operating room and general anesthesia was administered due to a severe lidocaine allergy. She was prepped and draped in the normal sterile fashion and was placed in a dorsal supine position with a leftward tilt. Pfannenstiel skin incision was made with a scalpel and carried through to the underlying layers. The fascia was nicked in the midline and extended laterally using The scalpel. The rectus muscles were in the midline. Peritoneum was entered sharply. The uterus was identified and a bladder blade was inserted into the abdomen. B. A transverse incision was made with a scalpel and extended laterally manually. The 's head was grasped with the help of my campus administrative assistant and fundal pressure the was delivered through the uterine incision without difficulty. The mouth and nares were bulb suctioned. After a 30 second delay the cord was clamped and cut. The infant was handed off to the awaiting vehicle washer for routine assessment. Placenta was delivered manually without difficulty. The uterus was exteriorized and cleared of all clots and debris. Incision was closed with an 0 Vicryl suture in a running locked fashion. Second layer of 1-0 monocryl suture was used in imbricating manner to create excellent closure and hemostasis. The uterus was returned to the abdomen. The gutters were cleared of all clots and debris. The peritoneum was closed in a pursestring pattern using a 3-0 Vicryl suture. This muscle was reapproximated with a 3-0 Vicryl. The fascia was closed with an 0- PDS suture. Subcutaneous tissue layer was closed using a 3-0 vicryl suture. The skin was closed with a 4-0 Monocryl subcuticular stitch. The patient to lerated the procedure well sponge lap and needle counts were correct at each tissue closure plane and the patient is now being brought to the recovery room in stable condition baby boy Yamil 5 lbs 10 oz Presentation: Positive for Vertex Amniotic Fluid Description: Clear Placental Delivery Description: Expressed Placenta Disposition: [facility] Cord Vessel Description: 3 Vessels Cord Entanglement: None A Gender: Male (1 minute): 7 (5 minute): 9 Delayed Cord Clamping: Yes Complications Risks of Surgery Discussed w/Patient: Anesthesia Risks, Infection, Need for Future C-Sections and Injury to surrounding structure(s) including bowel and bladder Multi Select Codes Urinary/Genital Urinary/Genital CPT Codes: 54124 Delivery [facility]
[2024-04-01] MEDS: Oxytocin 15 Units/NS 250ml 15 UNITS/250 ML IV.SOLN 83 UNITS IV (18:10)
--- NOTE | 2024-04-01 18:10 | DCINST_ITS ---
Discharge Instructions Diet Discharge Diet: No restrictions Activity Discharge Activity: May Not Drive (for 2 weeks or while taking narcotic pain medications.), May Shower and May Take a Tub Bath (in 7 days.) May resume sexual activity in: 4-6 weeks Weight Bearing Status: Full weight bearing Lifting Restrictions: 20 pounds Dressing / Incision Call your doctor if your incision/area has: Continuous Slow Oozing, Sudden Increased Bleeding, Increased Pain/ Swelling, Increased Redness and Foul Smelling Discharge Call your doctor if you observe: Fever of 101 or Higher and Using more than 1 pad per hour Suture Line Care: Avoid Pulling/Pushing and Avoid Pinching/Bending Cleanse incision/area with: Soap & Water and Keep Dressing Clean & Dry Follow Up Care Please Follow Up With: Sandra Tian DO When: Call [phone] to make an appointment for an incision check in 1-2 weeks. Test Results: Test results from this visit will be discussed in further detail at your follow- up appointment, if applicable. Discharge Plan Admission Admit Date/Time: 03/31/24 09:53 Primary Reason for Your Visit: section Attending Provider: Binta Celaya Primary Care Provider: Marco A Valdivia Discharge Orders/Prescriptions Prescriptions: New ibuprofen 800 mg tablet 800 mg PO Q8H PRN (Reason: pain) Qty: 30 0RF oxycodone-acetaminophen [Percocet] 5-325 mg tablet 1 tab PO Q4H PRN (Reason: pain) 7 Days Qty: 30 0RF Rx Instructions: 1-2 tabs q 4 hrs as needed for pain Continued PNV [id number] 400 mcg-35 mg- 25 mg-5 mg tablet,chewable 1 tab PO DAILY Slow Fe 137 mg (45 mg iron) tablet extended release 137 mg PO DAILY Discontinued nitrofurantoin monohyd/m-cryst [Macrobid] 100 mg capsule 100 mg PO BID Qty: 14 0RF Rx Instructions: must administer with a meal/food Referrals / Follow Up: Marco A Valdivia DO [Primary Care Provider] - Disposition Disposition (needs filled in before D/C Order can be placed): Home, Self Care
[2024-04-01] MEDS: HYDROmorphone 1 MG/ML Syringe IV (18:49)
[2024-04-01] MEDS: Ketorolac 30 MG/ML Syringe IV (18:50)
[2024-04-01] MEDS: Acetaminophen 500 MG Tablet 1000 MG PO (19:28)
--- NOTE | 2024-04-01 20:18 | PCM.OP.BLANK ---
Problems Associated Problem List Diagnoses (1) Status post section: (2) Failure of cervical dilation: (3) heart rate decelerations affecting management of mother: (4) Severe pre-eclampsia: (5) Gestational hypertension: (6) : (7) Palpitations: (8) Hx of supraventricular tachycardia: (9) Endometriosis: (10) [place]-Schlatter's disease: (11) Anemia affecting : (12) Tachycardia: (13) Anxiety and depression: (14) Supervision of high-risk : Operative Report Date of Procedure: 04/01/24 I was present and assisted Dr. Tian from the start of the procedure to the end. I performed retraction, suture cutting, suction, and fundal pressure assistance during the procedure. See Dr. Tian's operative note for full details of the procedure. Multi Select Codes Urinary/Genital Urinary/Genital CPT Codes: 86502 Delivery [employer] (CNM volunteer services assistant)
[2024-04-01] MEDS: Lactated Ringers 1,000 ML 15 ML IV (21:00)
[2024-04-02] VITALS (14 sets, daily range): BP systolic 103–132; BP diastolic 54–80; PULSE 72–103; RESP 14–17; TEMP 36.2–36.7; O2SAT 92–100
[2024-04-02] MEDS: 0.9% Saline Lock 10 ML Syringe IV ×3 (00:52→12:27)
[2024-04-02] MEDS: Ketorolac 30 MG/ML Syringe IV ×3 (00:52→12:26)
[2024-04-02] MEDS: Acetaminophen 500 MG Tablet 1000 MG PO ×4 (01:28→19:36)
[2024-04-02] MEDS: Magnesium Sulfate 20 GM/500 ML BAG IV (03:03)
[2024-04-02] MEDS: Enoxaparin 40 MG/0.4 ML Syringe SC (05:07)
--- NOTE | 2024-04-02 05:35 | NURSING ---
Reviewed and agreed with Siomara CAMPBELL charting.
[2024-04-02 06:22] LABS: Hematocrit 31.3 % (37-47); Mean Corp Hgb Conc 31.9 g/dL (32-36); Mean Corpuscular Hgb 26.7 pg (27.0-32.0); Mean Corpuscular Volume 83.5 fL (81-99); Mean Platelet Vol. 10.7 fl (6.2-12.0); Platelet Count 171 K/mm3 (150-450); RBC Distribution Width CV 15.9 % (11.6-14.6); Red Blood Count 3.75 M/mm3 (4.2-5.4); White Blood Count 14.4 K/mm3 (4.4-11.0)
--- NOTE | 2024-04-02 12:02 | PN.OBGYN_ITS ---
Subjective Subjective Patient doing well without complaints. Tolerating PO. Ambulating and voiding without difficulty. Feeding well. Denies chest pain, shortness of breath, calf pain/swelling, fevers, chills, lightheadedness. Objective Data Objective Data Vital Signs: Vital Signs Temp Pulse Resp BP Pulse Ox O2 Del Method 97.1 F L 103 H 14 121/61 H 96 Room Air 04/02/24 07:51 04/02/24 11:21 04/02/24 11:21 04/02/24 11:21 04/02/24 11:21 04/02/24 11:21 Oxygen Delivery Method Room Air Weight: 196 lb 6.4 oz Body Mass Index (BMI) 35.9 Intake & Output: Intake and Output for Last 24 Hours 03/31/24 04/01/24 04/02/24 23:59 23:59 23:59 Intake Total 2295 / 2295 2573.75 / 2683.75 1361.25 / 1361.25 Output Total 1775 / 1775 4600 / 4650 810 / 810 Balance 520 / 520 -2026.25 / -1966.25 551.25 / 551.25 Lab / Micro Data 04/02/24 04:15 03/31/24 06:17 Labs: Laboratory Results - last 24 hr 04/02/24 04:15: WBC 14.4 H, RBC 3.75 L, Hgb 10.0 L, Hct 31.3 L, MCV 83.5, MCH 26.7 L, MCHC 31.9 L, RDW Std Deviation 48.0 H, RDW Coeff of Dinesh 15.9 H, Plt Count 171, MPV 10.7 Micro: Microbiology 03/31/24 14:05 Genital vaginal Group B Streptococcus (PCR) - Final ROS Constitutional Constitutional: Reports systems reviewed and no addt'l complaints, except as documented; Denies anorexia or headache(s) Cardiovascular Cardiovascular: Reports systems reviewed and no addt'l complaints, except as documented; Denies dizziness, dyspnea, nausea or tachypnea Respiratory/Chest Respiratory/Chest: Reports systems reviewed and no addt'l complaints, except as documented; Denies cough, dyspnea, shortness of breath at rest or tachypnea Gastrointestinal Gastrointestinal: Reports systems reviewed and no addt'l complaints, except as documented; Denies abdominal pain, constipation or nausea Genitourinary Genitourinary: Reports systems reviewed and no addt'l complaints, except as documented; Denies burning urination, difficulty urinating, dysuria, urinary frequency or urinary incontinence Musculoskeletal Musculoskeletal: Reports systems reviewed and no addt'l complaints, except as documented Integumentary Integumentary: Reports systems reviewed and no addt'l complaints, except as documented Neurologic Neurologic: Reports systems reviewed and no addt'l complaints, except as documented; Denies abnormal speech, dizziness or headache(s) Psychiatric Psychiatric: Reports systems reviewed and no addt'l complaints, except as documented Endocrine Endocrinology: Reports systems reviewed and no addt'l complaints, except as documented Hematologic/Lymphatic Hematologic/Lymphatic: Reports systems reviewed and no addt'l complaints, except as documented Physical Exam Const alert, oriented x3 and no apparent distress Neck full ROM Resp normal respiratory effort, normal air movement and no retractions Effort and Inspection: able to speak in complete sentences and symmetric chest movement GI soft to palpation Bladder / Kidney Exam: bladder normal to palpation Uterus Palpation: uterus fundus Extremity normal to inspection and full ROM Psych mental status grossly normal, thought process normal and cooperative Assessment & Plan (1) Status post section: PLAN: s/p LTCS PPD # 1 1. routine post care 2. breast feeding- support given 3. rh positive 4. rubella immune (2) Failure of cervical dilation: (3) heart rate decelerations affecting management of mother: (4) Severe pre-eclampsia: PLAN: Discussed Magnesium duration with Dr Isaac. Ok to D/C 12 hours post delivery if no headache and BP controlled. Plan to D/C Mag now (5) Gestational hypertension: (6) : QUALIFIERS: Weeks of gestation: 34 weeks Qualified Code(s): Z 3A.34 - 34 weeks gestation of COMMENT: Anatomy normal, carrier neg. , NIPT low risk. 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 May start metoprolol 3rd trim if problematic (13) Anxiety and depression: (14) Supervision of high-risk : QUALIFIERS: Trimester: third trimester Qualified Code(s): O09.93 - Supervision of high risk , unspecified, third trimester COMMENT: PRR,, JUAN JOSE 05/09/24 oscar Malin Charges/Coding Multi Select Codes Urinary/Genital Urinary/Genital CPT Codes: No Charge
[2024-04-02] MEDS: Senna/Docusate Sodium 1 Tablet PO (12:27)
--- NOTE | 2024-04-02 13:35 | CASEMGMT ---
Social Work Assessment Labor and Delivery Unit Patient Address: [address] [place] [id number] Phone number: Date of Referral: 04/02/2024 Time of Referral: 01:38 Referred By: Sandra Tian Date of Intervention: 04/02/24 Time of Intervention: 13:34 Reason for Referral:? Anxiety, depression, baby special care and resources History obtained from: Medical records, Mother of baby (MOB) Krystin Henry, and father of baby (FOB) Kimo Maloney. Household composition:? MOB, FOB, Baby boy Yamil and FOB?s 2 daughters (half of the time) 10yo daughter Melissa and 7yo daughter Ragini. Patient's parent/guardian status:? MOB and FOB are not . MOB and FOB have been dating for roughly a year and a half. Both MOB and FOB will be actively involved in baby?s care. Medical History: ?MOB has had one and one delivery. MOB received routine care through [place] beginning at 9 weeks and 0 days. Baby?s birthweight: 5lbs, 10oz.? Apgars: 7 and 8.? Complications: Baby had to be delivered prematurely due to severe preeclampsia and elevated BP with MOB.? There was a failed induction and MOB had to be put under general anesthesia due to an allergy for an unplanned . Baby is in special care and discharge will be delayed. Educational Status: MOB and FOB denied any concerns with reading or writing.? MOB earned an Associates Degree. ? Financial Status: MOB and FOB reported they are financially able to meet the basic needs of baby at this time. 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 Infant Supplies: MOB and FOB reported they have all of the supplies ?plus more? that they need for baby including but not limited to: crib, diapers, clothing and car seat. Childcare/Caregiver(s):? MOB will be primary caregiver upon discharge.? FOB will assist when he?s not working. MOB and FOB also reported amply family support and friends who can also help with childcare when needed. Transportation: Secure and reliable. MOB an FOB reported they have reliable transportation to get baby to and from all of his medical appointments. ?? Programs/Agencies Involved: ?None at this time. MOB reported she?s over income to be eligible for any benefits through [employer]. ? Children Services/Legal Issues:? Mr. Maloney denied any prior CSB involvement with his 2 daughters from a previous relationship. Both denied any previous or current legal issues. ? Behavioral Health Issues: ??Mental Health History: Although records review indicated previous issues with depression and anxiety with the MOB, MOB denied. MOB reported she?s never been symptomatic, has never been involved in counseling and has never been medically treated for depression or anxiety. FOB denied any mental health history. ? Substance Use History: Alcohol: socially but not during . MOB and FOB denied any drug or alcohol abuse concerns. ??Family History: None reported. ??Drug Screens: None Family/Social Stressors:? Baby is currently in special care and was born premature. Support Systems: Ample. MOB and FOB both report a strong family support system as well as a strong friend network. Biggest support was identified as baby?s MGM and MG. Depression/Shaken Baby/Safe Sleeping: Plant Floor Automation Manager provided both verbal and written education on PPD< shaken baby and safe sleeping.? Both MOB and FOB verbalized an understanding. ??? ASSESSMENT:? MOB and FOB both consented to social work visit. At the time of visit, MOB had just finished working with her nurse and pumping.? MOB was in her hospital bed and FOB was at MOB?s bedside.? Baby was not in the room at the time of the visit as he was in the Special Care Unit on the floor. MOB and FOB were both very cooperative and engaged during the assessment. Plant Floor Automation Manager observed positive interaction between MOB and FOB.? Baby?s molasses and caramel operator was identified as Dr. Lou through [facility]. Plant Floor Automation Manager asked for the FOB to leave the room so pediatric social worker could talk with MOB alone which both MOB and FOB agreed to. When FOB was leaving the room, MOB asked him to go see and check on their son.? MOB denied any concerns of domestic violence, drug or alcohol abuse or mental health concerns and reported she feels safe. No concerns observed or noted.? stockroom worker reviewed available community resources and how to ask for help when needed.? Safe Plan of Care for infant related to substance use: N/A? PLAN:? stockroom worker also provided written resources for counseling, depression symptoms and Help Me Grow. No other services requested or indicated. Sandra Dias, RIDE ASSEMBLY SUPERVISOR, ENGRAVER MACHINE
[2024-04-02] MEDS: Naproxen 500 MG Tablet PO (18:43)
[2024-04-03 00:04] VITALS: BP 125/69; PULSE 77; RESP 15; TEMP 36.7; O2SAT 97
[2024-04-03] MEDS: Acetaminophen 500 MG Tablet 1000 MG PO ×4 (01:44→21:46)
[2024-04-03] MEDS: Naproxen 500 MG Tablet PO ×3 (02:46→18:34)
[2024-04-03 04:48] VITALS: BP 121/84; PULSE 98; RESP 15; TEMP 36.5; O2SAT 99
[2024-04-03] MEDS: Enoxaparin 40 MG/0.4 ML Syringe SC (04:51)
--- NOTE | 2024-04-03 05:17 | NURSING ---
Reviewed and agreed with Siomara CAMPBELL charting.
--- NOTE | 2024-04-03 06:23 | PN.OBGYN_ITS ---
Subjective Subjective Patient doing well without complaints. Tolerating PO. Ambulating and voiding without difficulty. Feeding well. Denies chest pain, shortness of breath, calf pain/swelling, fevers, chills, lightheadedness. Objective Data Objective Data Vital Signs: Vital Signs Temp Pulse Resp BP Pulse Ox O2 Del Method 97.7 F L 98 15 121/84 H 99 Room Air 04/03/24 04:48 04/03/24 04:48 04/03/24 04:48 04/03/24 04:48 04/03/24 04:48 04/03/24 04:48 Oxygen Delivery Method Room Air Weight: 196 lb 6.4 oz Body Mass Index (BMI) 35.9 Intake & Output: Intake and Output for Last 24 Hours 04/01/24 04/02/24 04/03/24 23:59 23:59 23:59 Intake Total 2573.75 / 2683.75 1969.33 / 1969.33 Output Total 4600 / 4650 1110 / 1110 Balance - / -1965. 859.33 / 859.33 Lab / Micro Data Attestation: I reviewed the patient's lab results. 04/02/24 04:15 03/31/24 06:17 Labs: Laboratory Results - last 24 hr 04/02/24 04:15: WBC 14.4 H, RBC 3.75 L, Hgb 10.0 L, Hct 31.3 L, MCV 83.5, MCH 26.7 L, MCHC 31.9 L, RDW Std Deviation 48.0 H, RDW Coeff of Dinesh 15.9 H, Plt Count 171, MPV 10.7 Micro: Microbiology 03/31/24 14:05 Genital vaginal Group B Streptococcus (PCR) - Final ROS Constitutional Constitutional: Reports systems reviewed and no addt'l complaints, except as documented; Denies anorexia or headache(s) Cardiovascular Cardiovascular: Reports systems reviewed and no addt'l complaints, except as documented; Denies dizziness, dyspnea, nausea or tachypnea Respiratory/Chest Respiratory/Chest: Reports systems reviewed and no addt'l complaints, except as documented; Denies cough, dyspnea, shortness of breath at rest or tachypnea Gastrointestinal Gastrointestinal: Reports systems reviewed and no addt'l complaints, except as documented; Denies abdominal pain, constipation or nausea Genitourinary Genitourinary: Reports systems reviewed and no addt'l complaints, except as documented; Denies burning urination, difficulty urinating, dysuria, urinary frequency or urinary incontinence Musculoskeletal Musculoskeletal: Reports systems reviewed and no addt'l complaints, except as documented Integumentary Integumentary: Reports systems reviewed and no addt'l complaints, except as documented Neurologic Neurologic: Reports systems reviewed and no addt'l complaints, except as documented; Denies abnormal speech, dizziness or headache(s) Psychiatric Psychiatric: Reports systems reviewed and no addt'l complaints, except as documented Endocrine Endocrinology: Reports systems reviewed and no addt'l complaints, except as documented Hematologic/Lymphatic Hematologic/Lymphatic: Reports systems reviewed and no addt'l complaints, except as documented Physical Exam Const alert, oriented x3 and no apparent distress Neck full ROM Resp normal respiratory effort, normal air movement and no retractions Effort and Inspection: able to speak in complete sentences and symmetric chest movement GI soft to palpation Inspection: incision intact Bladder / Kidney Exam: bladder normal to palpation Uterus Palpation: uterus fundus Extremity normal to inspection and full ROM Psych mental status grossly normal, thought process normal and cooperative Assessment & Plan (1) Status post section: PLAN: s/p LTCS PPD # 2 1. routine post care 2. breast feeding- support given 3. rh positive 4. rubella immune (2) Failure of cervical dilation: (3) heart rate decelerations affecting management of mother: (4) Severe pre-eclampsia: (5) Gestational hypertension: (6) : QUALIFIERS: Weeks of gestation: 34 weeks Qualified Code(s): Z 3A.34 - 34 weeks gestation of COMMENT: Anatomy normal, carrier neg. , NIPT low risk. 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 May start metoprolol 3rd trim if problematic (13) Anxiety and depression: (14) Supervision of high-risk : QUALIFIERS: Trimester: third trimester Qualified Code(s): O09.93 - Supervision of high risk , unspecified, third trimester COMMENT: PRR,, JUAN JOSE 05/09/24 oscar Malin Charges/Coding Multi Select Codes Urinary/Genital Urinary/Genital CPT Codes: No Charge
[2024-04-03 08:00] VITALS: BP 130/81; PULSE 92; RESP 18; TEMP 36.5; O2SAT 98
[2024-04-03] MEDS: oxyCODONE 5 MG Tablet PO (10:48)
[2024-04-03 15:10] VITALS: BP 132/79; PULSE 85; RESP 17; TEMP 36.6; O2SAT 99
[2024-04-03 21:47] VITALS: BP 131/84; PULSE 89; RESP 14; TEMP 36.4; O2SAT 98
[2024-04-04] MEDS: Naproxen 500 MG Tablet PO ×3 (02:37→18:38)
[2024-04-04 02:38] VITALS: BP 140/84; PULSE 86; RESP 16; TEMP 36.4; O2SAT 97
[2024-04-04] MEDS: Enoxaparin 40 MG/0.4 ML Syringe SC (05:08)
[2024-04-04] MEDS: Acetaminophen 500 MG Tablet 1000 MG PO ×4 (05:08→23:10)
--- NOTE | 2024-04-04 08:42 | PCM.PN.OB ---
Subjective Subjective Patient doing well without complaints. Tolerating PO. Ambulating and voiding without difficulty. Feeding well. Denies chest pain, shortness of breath, calf pain/swelling, fevers, chills, lightheadedness. Objective Data Objective Data Vital Signs: Vital Signs Temp Pulse Resp BP Pulse Ox O2 Del Method 97.6 F L 86 16 140/84 H 97 Room Air 04/04/24 02:38 04/04/24 02:38 04/04/24 02:38 04/04/24 02:38 04/04/24 02:38 04/04/24 02:38 Oxygen Delivery Method Room Air Weight: 196 lb 6.4 oz Body Mass Index (BMI) 35.9 Intake & Output: Intake and Output for Last 24 Hours 04/02/24 04/03/24 04/04/24 23:59 23:59 23:59 Intake Total 1969.33 / 1969.33 1086 / 1086 Output Total 1110 / 1110 Balance 859.33 / 859.33 1086 / 1086 Lab / Micro Data 04/02/24 04:15 03/31/24 06:17 Micro: Microbiology 03/31/24 Unknown Genital vaginal Group B Streptococcus Culture - Final Group B Beta Streptococcus is not isolated. 03/31/24 14:05 Genital vaginal Group B Streptococcus (PCR) - Final ROS Constitutional Constitutional: Denies chills, fatigue, fever(s), poor appetite or weakness Eyes Eyes: Denies blurry vision, change in vision, seeing flashes or spots in vision ENT HEENT: Denies dizziness, headache(s), loss taste/smell or sore throat Cardiovascular Cardiovascular: Denies chest pain, dizziness, dyspnea, irregular heart rhythm, palpitations or rapid heart rate Respiratory/Chest Respiratory/Chest: Denies chest tightness, cough, dyspnea or breast pain Gastrointestinal Gastrointestinal: Denies abdominal pain, constipation or vomiting Genitourinary Genitourinary: Denies dysuria or flank pain Musculoskeletal Musculoskeletal: Denies difficulty walking, joint pain, limited range of motion or numbness Neurologic Neurologic: Denies abnormal movements, abnormal speech, dizziness, numbness, seizure-like activity or syncope Psychiatric Psychiatric: Denies anxiety, behavioral changes, change in appetite, confusion, depression or suicidal thoughts Physical Exam Const alert, oriented x3 and no apparent distress General Appearance: cooperative and comfortable Resp normal respiratory effort Cardio regular rate GI normal to inspection, nondistended, normoactive bowel sounds GI Narrative: uterus is firm below umbilicus Palpation: soft Back/Spine no CVA tenderness and thoraco-lumbar ROM normal Extremity normal to inspection, no clubbing, cyanosis or edema, no calf tenderness and no pedal edema Psych mental status grossly normal, thought process normal, cooperative, affect normal, speech normal, activity/motor behavior normal, denies homicidal ideation and denies suicidal ideation Assessment & Plan (1) Status post section: (2) Failure of cervical dilation: (3) heart rate decelerations affecting management of mother: (4) Severe pre-eclampsia: (5) Gestational hypertension: (6) : QUALIFIERS: Weeks of gestation: 34 weeks Qualified Code(s): Z3A.34 - 34 weeks gestation of COMMENT: Anatomy normal, carrier neg. , NIPT low risk. 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 May start metoprolol 3rd trim if problematic (13) Anxiety and depression: (14) Supervision of high-risk : QUALIFIERS: Trimester: third trimester Qualified Code(s): O09.93 - Supervision of high risk , unspecified, third trimester COMMENT: PRR,, JUAN JOSE 05/09/24 oscar Tift Kika Malin PLAN: Plan s/p LTCS PPD #2 1. routine post care 2. breast feeding- support given 3. rh positive 4. rubella immune 5.gestational hypertension with severe features, no proteinuria, likely severe pre-eclampsia. bp elevated this am. will continue to watch bp's today for possibility of needing to start meds. if normalizes will dc to hotel status tomorrow.
[2024-04-04 09:15] VITALS: BP 139/83; PULSE 85; RESP 18; TEMP 36.8; O2SAT 98
[2024-04-04 13:15] VITALS: BP 150/97; PULSE 91; RESP 16; TEMP 36.7; O2SAT 98
[2024-04-04] MEDS: Labetalol 100 MG Tablet PO ×2 (14:44→23:10)
[2024-04-04 14:58] LABS: Pathology Specimen OB SEE PATHOLOGY REPORT
[2024-04-04 16:35] VITALS: BP 141/88; PULSE 91; RESP 18; TEMP 36.8; O2SAT 98
[2024-04-04 20:41] VITALS: BP 121/78; PULSE 89; RESP 18; TEMP 36.6; O2SAT 97
[2024-04-04 23:16] VITALS: BP 139/77; PULSE 90; RESP 16
[2024-04-05] MEDS: Naproxen 500 MG Tablet PO ×2 (02:28→10:18)
[2024-04-05] MEDS: Enoxaparin 40 MG/0.4 ML Syringe SC (04:28)
[2024-04-05 04:32] VITALS: BP 136/77; PULSE 75; RESP 16; O2SAT 97
[2024-04-05] MEDS: Acetaminophen 500 MG Tablet 1000 MG PO ×2 (05:30→12:00)
[2024-04-05 07:45] VITALS: BP 130/78; PULSE 92; RESP 16; TEMP 36.2; O2SAT 98
--- NOTE | 2024-04-05 07:56 | PCM.PN.OB ---
Subjective Subjective Patient doing well without complaints. Tolerating PO. Ambulating and voiding without difficulty. . Denies chest pain, shortness of breath, calf pain/swelling, fevers, chills, lightheadedness. She is pumping, baby Yamil is in SCN but doing well Objective Data Objective Data Vital Signs: Vital Signs Temp Pulse Resp BP Pulse Ox O2 Del Method 97.8 F 75 16 136/77 H 97 Room Air 04/04/24 20:41 04/05/24 04:32 04/05/24 04:32 04/05/24 04:32 04/05/24 04:32 04/05/24 04:32 Oxygen Delivery Method Room Air Weight: 196 lb 6.4 oz Body Mass Index (BMI) 35.9 Intake & Output: Intake and Output for Last 24 Hours 04/03/24 04/04/24 04/05/24 23:59 23:59 23:59 Intake Total 1086 / 1086 Balance 1086 / 1086 Lab / Micro Data 04/02/24 04:15 03/31/24 06:17 Micro: Microbiology 03/31/24 Unknown Genital vaginal Group B Streptococcus Culture - Final Group B Beta Streptococcus is not isolated. 03/31/24 14:05 Genital vaginal Group B Streptococcus (PCR) - Final Physical Exam Const alert and oriented x3 HEENT normocephalic Eyes PERRL Neck full ROM Resp normal respiratory effort GI soft to palpation GI Narrative: FF below U. Dressing dry and intact Palpation: tender other (appropriately) Assessment & Plan (1) Status post section: COMMENT: PCS JV Pre E [place] 34 wk (2) Severe pre-eclampsia: QUALIFIERS: Trimester: unspecified trimester Qualified Code(s): O14.10 - Severe pre-eclampsia, unspecified trimester (3) Gestational hypertension: QUALIFIERS: Trimester: unspecified trimester Qualified Code(s): O13.9 - Gestational [-induced] hypertension without significant proteinuria, unspecified trimester PLAN: Plan s/p LTCS PPD #3 1. routine post care 2. breast feeding- support given 3. rh positive 4. rubella immune 5. hotel status today
--- NOTE | 2024-04-05 08:05 | PCM.DC.SUM ---
Providers Date of Admission: 03/31/24 Primary Care Physician: Dr. Marco A Valdivia DO Reason For Visit: R/O PRE E Diagnosis Discharge Diagnosis (1) Status post section: Status: Acute Code(s): Z98.891 - History of uterine scar from previous surgery (2) Severe pre-eclampsia: Status: Acute Code(s): O14.10 - Severe pre-eclampsia, unspecified trimester Qualifiers: Trimester: unspecified trimester Qualified Code(s): O14.10 - Severe pre-eclampsia, unspecified trimester (3) Gestational hypertension: Status: Acute Code(s): O13.9 - Gestational [-induced] hypertension without significant proteinuria, unspecified trimester Qualifiers: Trimester: unspecified trimester Qualified Code(s): O13.9 - Gestational [-induced] hypertension without significant proteinuria, unspecified trimester Plan s/p LTCS PPD #3 1. routine post care 2. breast feeding- support given 3. rh positive 4. rubella immune 5. hotel status today Medications at Discharge Home Medications PNV 153-FA 400 mcg-om3 35 mg-dha 25 mg-epa 5 mg-fish oil chew tablet 1 tab PO DAILY 10/01/23 ferrous sulfate 137 mg (45 mg iron) tablet,extended release (Slow Fe) 137 mg PO DAILY 02/16/24 ibuprofen 800 mg tablet 800 mg PO Q8H PRN pain #30 tabs 04/01/24 oxycodone-acetaminophen 5 mg-325 mg tablet (Percocet) 1 tab PO Q4H PRN pain 7 days #30 tabs 04/01/24 labetalol 100 mg tablet 100 mg PO BID #60 tabs 04/04/24 Hospital Course Operations section Summary of Care Provided Hospital Course: Patient underwent section with routine recovery, return of normal bowel and bladder function. Ambulating, voiding and tolerating PO. Stable for discharge home POD #3. Weight / BMI Weight Weight: 196 lb 6.4 oz Body Mass Index (BMI) 35.9 ABG / Lab / Microbiology Data 04/02/24 04:15 03/31/24 06:17 Microbiology: Microbiology 03/31/24 Unknown Genital vaginal Group B Streptococcus Culture - Final Group B Beta Streptococcus is not isolated. 03/31/24 14:05 Genital vaginal Group B Streptococcus (PCR) - Final D/C Instructions Discharge Diet: No restrictions May resume sexual activity in: 4-6 weeks Weight Bearing Status: Full weight bearing Call your doctor if your incision/area has: Continuous Slow Oozing, Sudden Increased Bleeding, Increased Pain/ Swelling, Increased Redness and Foul Smelling Discharge Call your doctor if you observe: Fever of 101 or Higher and Using more than 1 pad per hour Suture Line Care: Avoid Pulling/Pushing and Avoid Pinching/Bending Cleanse incision/area with: Soap & Water and Keep Dressing Clean & Dry Please Follow Up With: Sandra Tian DO When: Call [phone] to make an appointment for an incision check in 1-2 weeks. Meaningful Use Info Meaningful Use Meaningful Use Diagnoses (Choose all that apply): None applicable Ischemic Stroke Statin Dosing Therapy Reference: STATIN DOSE THERAPY REFERENCE: * Patients > 75 years receive moderate or high dose statin therapy. * Patients 75 years or YOUNGER should receive HIGH intensity statin dose unless contraindicated. You will be required to document reason for non-treatment if statin daily dose does not meet guidelines. HIGH DOSE STATIN THERAPY DAILY Atorvastatin > than or = to 40 mg Rosuvastatin > than or = to 20 mg Amlodipine + Atorvastatin > than or = to 2.5/40 mg Ezetimibe + Simvastatin 10/80 mg Simvastatin 80mg Discharge Plan Admission Admit Date/Time: 03/31/24 09:53 Primary Reason for Your Visit: section Attending Provider: Binta Celaya Primary Care Provider: Marco A Valdivia Discharge Orders/Prescriptions Prescriptions: New ibuprofen 800 mg tablet 800 mg PO Q8H PRN (Reason: pain) Qty: 30 0RF oxycodone-acetaminophen [Percocet] 5-325 mg tablet 1 tab PO Q4H PRN (Reason: pain) 7 Days Qty: 30 0RF Rx Instructions: 1-2 tabs q 4 hrs as needed for pain labetalol 100 mg tablet 100 mg PO BID Qty: 60 0RF Continued PNV [id number] 400 mcg-35 mg- 25 mg-5 mg tablet,chewable 1 tab PO DAILY Slow Fe 137 mg (45 mg iron) tablet extended release 137 mg PO DAILY Discontinued nitrofurantoin monohyd/m-cryst [Macrobid] 100 mg capsule 100 mg PO BID Qty: 14 0RF Rx Instructions: must administer with a meal/food Referrals / Follow Up: Marco A Valdivia, [Primary Care Provider] - Disposition Disposition (needs filled in before D/C Order can be placed): Home, Self Care
[2024-04-05] MEDS: Labetalol 100 MG Tablet PO (10:18)
[2024-04-05 12:50] VITALS: BP 130/81; PULSE 97; RESP 16; TEMP 36.4; O2SAT 98
== END 2024-04-05 14:00 | disposition home or self-care (01) | DRG 786 ==
LOC: WPOUT 10:07 → WP 10:07
PROVIDERS: Obstetrics & Gynecology; Admitting Provider Advanced Practice Midwife; PCP Family Medicine; Referring Provider Obstetrics & Gynecology; Visit Provider Advanced Practice Midwife
DX: O62.0 Primary inadequate contractions (principal); O60.14X0 Preterm labor third trimester with preterm delivery third trimester, not applicable or unspecified; O14.14 Severe pre-eclampsia complicating childbirth; F32.A Depression, unspecified; F17.210 Nicotine dependence, cigarettes, uncomplicated; F41.9 Anxiety disorder, unspecified; O76 Abnormality in fetal heart rate and rhythm complicating labor and delivery; O99.344 Other mental disorders complicating childbirth; O99.334 Smoking (tobacco) complicating childbirth; Z37.0 Single live birth; Z3A.34 34 weeks gestation of pregnancy; O99.892 Other specified diseases and conditions complicating childbirth; M92.529 Juvenile osteochondrosis of tibia tubercle, unspecified leg; O99.02 Anemia complicating childbirth; Z86.79 Personal history of other diseases of the circulatory system
CPT/HCPCS: 59025; 59050; 76816; 80053; 82565; 82570; 84156; 84450; 84460; 84550; 85025; 85027; 86780; 86850; 86900; 86901; 87081; 87653; 88307; 99221; J7120; A4216; G0378; J0702; J2405

== ENCOUNTER → 2025-07-19 | Outpatient (CLI) | payer OTHER, SELFPAY | END | disposition home or self-care (01) | LOC: LABSPEC 16:25 | PROVIDERS: PCP Family Medicine; Visit Provider Obstetrics & Gynecology | DX: Z12.4 Encounter for screening for malignant neoplasm of cervix (principal) | CPT/HCPCS: 88175; G0145 ==